=== PATIENT | female | born 1950 | race Caucasian/White ===

== ENCOUNTER 2022-08-14 15:38 | Outpatient (OUT) | payer MEDICARE, SELFPAY ==
[2022-08-14 16:38] LABS: Estimated Average Glucose 123 mg/dL; Glycohemoglobin A1C 5.9 % (4.5-6.2)
[2022-08-14 16:55] LABS: Alanine Aminotransferase 25 U/L (14-59); Albumin Globulin Ratio 0.8; Albumin Level 3.5 g/dL (3.4-5.0); Alkaline Phosphatase 101 U/L (46-116); Anion Gap 12.7; Aspartate Amino Transferase 21 U/L (15-37); Bilirubin Direct 0.1 mg/dL (0.0-0.2); Bilirubin Total 0.4 mg/dL (0.2-1.0); Carbon Dioxide 27.5 mmol/L (21.0-32.0); Chloride 104 mmol/L (98-107); Estimated GFR (African America >60 (>=60); Estimated GFR (Non-African Ame >60 (>=60); Globulin 4.3 g/dL; Potassium 4.2 mmol/L (3.5-5.1); Sodium 140 mmol/L (136-145); Thyroid Stimulating Hormone 2.837 uIU/mL (0.358-3.740); Total Protein 7.8 g/dL (6.4-8.2)
== END 2022-08-14 15:39 | disposition home or self-care (01) ==
LOC: LAB 15:43
DX: E03.9 Hypothyroidism, unspecified (principal)
CPT/HCPCS: 36415; 80051; 80076; 82565; 83036; 84443; 84520

== ENCOUNTER 2023-08-06 14:05 | Outpatient (OUT) | payer MEDICARE, SELFPAY ==
--- NOTE | 2023-08-06 14:06 | MM_ITS ---
Patient Name: CIARA MARTIN MR#: [id number] : 1950 Exam Date: 08/06/2023 Ordering Doctor: FRED AVELAR LINSEED OIL ORDER FILLER RADIOLOGY REPORT PROCEDURE: MM TOMOSYNTHESIS SCREENING BI COMPARISON: MG MAMM SCREEN 3D MINDY CAD, 07/11/2022. MG MAMM SCREEN MINDY W CAD, 06/05/2021. INDICATIONS: Screening Calculator Name NCI Breast Cancer Risk Assessment Tool 5 Year Breast Cancer Risk 2.30% Lifetime Breast Cancer Risk 5.70% Personal Breast Cancer No Personal Ovarian Cancer No Treatments None Family Cancers None LOCATION: [facility] BREAST COMPOSITION: The breasts are heterogeneously dense,which may obscure small masses. FINDINGS: DIAGNOSTIC CATEGORY 2--BENIGN FINDING. NO CHANGE FROM COMPARISON. Scattered benign-appearing nodules are present. Scattered benign-appearing calcifications are present. Scattered benign-appearing lymph nodes are present. RIGHT BREAST: No significant suspicious finding. LEFT BREAST: No significant suspicious finding. RECOMMENDATIONS: ROUTINE MAMMOGRAM AND CLINICAL EVALUATION IN 12 MONTHS. PLEASE NOTE: A NORMAL MAMMOGRAM DOES NOT EXCLUDE THE POSSIBILITY OF BREAST CANCER. A CLINICALLY SUSPICIOUS PALPABLE LUMP SHOULD BE BIOPSIED. Dictated by: Roldan Martines MD on 08/14/2023 at 16:11 Approved by: Roldan Martines MD on 08/14/2023 at 16:12
== END 2023-08-06 14:06 | disposition home or self-care (01) ==
LOC: MAMMO 14:05
PROVIDERS: PCP Nurse Practitioner Family; Visit Provider Nurse Practitioner Family
DX: Z12.31 Encounter for screening mammogram for malignant neoplasm of breast (principal)
CPT/HCPCS: 77063; 77067

== ENCOUNTER 2024-09-11 10:01 | Outpatient (OUT) | payer MEDICARE, SELFPAY ==
--- OUTSIDE RECORDS SUMMARY | 2018-09-09 09:30 | XMS_ITS | Continuity of Care Document ---
Author Organization [facility] Address [address] [place] [address] Phone Care Team Providers Care Product Handler Name Role Phone Constantin Lin III, MD Unavailable Unavailabl e Allergies, Adverse Reactions, Alerts Substance Reaction Status Criticality No Known Allergies Active No Inform ation Medications Medication Instructions Dosage Effective Dates (start - stop) Status Comments fluoxetine 20 mg capsule take 1 capsule by oral route every day in the morning 20 MG - Active omeprazole 20 mg capsule,delayed release take 1 capsule by oral route every day before a meal 20 MG - Active Tirosint 75 mcg capsule take 1 capsule by oral route every day 75 MCG - Active simvastatin 20 mg tablet take 1 tablet by oral route every day in the evening 20 MG - Active losartan 25 mg tablet take 1 tablet by o ral route every day 25 MG - Active metoprolol succinate ER 50 mg tablet,extended release 24 hr take 1 tablet by oral route every day 50 MG - Active Vitamin D3 2,000 unit tablet take 1 Tablet by Oral route every day 1 Tablet - Active Procedures Procedure Date [facility] Offic Outpt [facility] [place] [facility] Offic/outpt E&m [facility] OCT [facility] Offic Outpt E&[place]ab [place] [place] [facility] Ret[facility] Ophth Serv: Med Exam; Interm E 18 OCT Retina Offic/outpt E&m [facility]-pr 45 7 Advance Directives Directive Yes / No Effective Date File Name No Information Encounters Encounter Description Practice Location Reason(s) For Visit Diagnoses Date Provider Providers Copied on Encounter Offic Outpt E&m Estab Low-mod [facility], [address], [place], [place], [id number], [place] tel:[phone] [facility] Whitney blurry vision (chief complaint) Puckering of macula, bilateralOther vitreous opacities, bilateralAge-rela campos nuclear cataract, bilateralPrimary cyst of pars plana, left eye 9 Chorich III Constantin. [address], [place], [address], [place]. tel:[phone] Referring Provider: Constantin Elizabeth, [address], [place], [address]. tel:[phone] Offic/outpt E&m Estab Mod-hi [facility], [address], [place], [place], [id number], [place] tel:[phone] [facility] Whitney blurry vision (chief complaint) Puckering of macula, bilateralOther vitreous opacities, bilateralAge-rela campos nuclear cataract, bilateralPrimary cyst of pars plana, left eye 9 Chorich III Constantin. [address], [place], [address], [place]. [phone] Other Provider: Lizy Moore OD, [address], [place], [address]. tel:[phone] erring Provider: Constantin Elizabeth, [address], [place], [address]. tel:[phone] Offic Outpt E&m Estab Low-mod [facility], [address], [place], [place], [id number], [place] tel:[phone] [facility] Whitney blurry vision (chief complaint) Puckering of macula, bilateralMacular cyst, hole, or pseudohole, right eyeOther vitreous opacities, bilateralAge-rela campos nuclear cataract, bilateralPrimary cyst of pars plana, left eye 8 Chorich III Constantin. [address], [place], [address], [place]. tel:[phone] Referring Provider: Constantin Elizabeth, [address], [place], [address]. tel:[phone] [facility], [address], [place], [place], [id number], [place] tel:[phone] [facility] Whitney blurry vision (chief complaint) Puckering of macula, bilateralMacular cyst, hole, or pseudohole, right eyeOther vitreous opacities, bilateralAge-rela campos nuclear cataract, bilateralPrimary cyst of pars plana, left eye Feb-0 2 8 Chorich III Constantin. [address], [place], [address], [place]. [phone] Specialist : Ethan Joiner MD, [address], [place], [address]. tel:[phone] erring Provider: Constantin Morrisch LUCIA Elizabeth, [address], [place], [address]. tel:[phone] Offic/outpt E&m New Mod-hi 45 [facility], [address], [place], [place], [id number], tel:[phone] [facility] Whitney decreased vision (chief complaint) Puckering of macula, bilateralMacular cyst, hole, or pseudohole, right eyeAge-related nuclear cataract, bilateralOther vitreous opacities, bilateralPrimary cyst of pars plana, left eye 7 Chorich III Constantin. [address], [place], [address], [place]. tel:[phone] Family History Family Member Type Diagnosis Age At Onset Father Problem (finding) Heart disease Sister Problem (finding) Parkinson's disease Father Problem (finding) diabetes mellitus type 2 Sister Problem (finding) Thyroid cancer Sister Problem (finding) Heart disease Sister Problem (finding) hypertension Sister Problem (finding) Thyroid disorder Father Problem (finding) glaucoma Payers Payer name Insurance type Covered alliance party ID Authoriza tijanina(s) [employer] Medicare RAYMOND [id number] Social History Type Description Quantity Date Captured Comments Alcohol Use Details No Caffeine Use Details No Tobacco Use Status No Information Smoking Status Current some day smoker 019 Sex Female Chief Complaint And Reason For Visit From encounter dated '09/09/2018 13:30'. blurry vision (chief complaint). Description: Pt states she feels like her vision is doing a littlebetter. She is able to see more distance vision OU, especially when driving. Pt denies seeing any flashes or floaters OU. .The 67 years old female presents for evaluation of blurry vision in the right eye and left eye. The onset was chronic. It affects OU. The symptom is constant. It occurs all thetime. The condition is improving. The condition is described as no symptoms. Reason For Referral Reason For Referral No Information Plan Of Treatment Date Type Action Status Patient Education Vitamin D3 2,000 unit t ablet completed Patient Education fluoxetine 20 mg capsul e completed History Of Present Illness Encounter Date Complaint History Of Prese nt Illness blurry vision Pt states she fe els like her vision is doing a little better. She is able to see more distance vision OU, especially when driving. Pt denies seeing any flashes or floaters OU. .The 67 years old female presents for evaluation of blurry vision in the right eye and left eye. The onset was chronic. It affects OU. The symptom is constant. It occurs all the time. The condition is improving. The condition is described as no symptoms. blurry vision Patient here for 6 month follow up and OCT of both eyes. Patient states vision is still blurred in both eyes and has not changed since her last visit..The 67 years old female presents for evaluation of blurry vision in the right eye and left eye. The onset was gradual onset. It affects OU. The symptom is constant. It occurs all the time. The condition is mild. The condition is described as visually disruptive. blurry vision Follow up exam t narendra. She continues to have some blurry vision. She has some difficulty reading with her bifocals and she bought Tantaline readers that she does well with. She denies floaters and flashes..The 66 years old female presents for evaluation of blurry vision in the right eye and left eye. The onset was chronic. It affects OS > OD. The symptom is constant. It occurs all the time. The condition is moderate. The condition is described as blurring. blurry vision Pt complains she sometimes has a hard time making thing's out. Pt gave an example of if she sees what she thinks is a paper clip on the table turns out not to be a paper clip when she picks it up..The 66 years old female presents for 6-mos retinal evaluation. Pt complains of blurry vision in the left > right. ERM gradual onset. It affects peripheral vision. The symptom is constant. It occurs all the time. The condition is significant. The condition is described as visually disruptive. In addition, the condition is associated with blurred distance vision. The patient denies eye pain. decreased vision She states she went for a routine eye exam ans was told she possible has fluid in the back of her left eye. This was diagnosed from a picture that was taken. She was told nothing was seen on the examination..The 65 years old female presents for evaluation of decreased vision in the right eye and left eye. It started about 2 week(s) ago. The onset was discovered on exam. It affects VA not affected. The symptom is constant. It occurs all the time. The condition is stable. The condition is described as comfortable. The patient denies trauma. Functional Status Date Functional Assessmen t No Information Instructions Date Instruction Additional Infor nya - Return in 6 months with Constantin chopra MD for OCT OU 1st before exam Related to Epiretinal membrane, both eyesVitreous syneresis of both eyesNuclear cataract of both eyesPars plana primary cyst, left - oct ou done and re viewed today the ERM has not changed and the vision is about the same, Discussed diagnosis in detail with patient. No treatment is required at this time. Will continue to observe condition and or symptoms. Call if VA worsens. Patient instructed to call if condition gets worse. Related to Epiretinal membrane, both eyesVitreous syneresis of both eyesNuclear cataract of both eyesPars plana primary cyst, left - Return in 6 months with Constantin chopra MD for OCT OU 1st before exam Related to Epiretinal membrane, both eyesVitreous syneresis of both eyesNuclear cataract of both eyesPars plana primary cyst, left - Exam OU-both eyes are stable from a retinal standpoint. No treatment needed on ERM. Pt can see an Fur Storage Clerk for updated glasses if she wants, Dr Moore is close to where she lives. She does have cataracts in both eyes. Discussed diagnosis in detail with patient. Advised patient of condition. No treatment is required at this time. Will continue to observe condition and or symptoms. Call if VA worsens. Related to Epiretinal membrane, both eyesVitreous syneresis of both eyesNuclear cataract of both eyesPars plana primary cyst, left - Return in 6 months with Constantin chopra MD for Follow-Up , OCT OU 1st before exam Related to Epiretinal membrane, both eyesMacular pseudohole, right eyeVitreous syneresis of both eyesNuclear cataract of both eyesPars plana primary cyst, left - Performed and revi ewed OCT. The ERM in each eye remains stable at this time. The next step to improve the vision would likely be with cataract surgery first, primarily in the left eye. Discussed treatment options with patient. Will continue to observe condition and or symptoms. Discussed signs and symptoms of retinal detachment. Call if VA worsens. Related to Epiretinal membrane, both eyesMacular pseudohole, right eyeVitreous syneresis of both eyesNuclear cataract of both eyesPars plana primary cyst, left - Return in 6 months with Constantin chopra MD for Follow-Up , OCT OU 1st before exam Related to Epiretinal membrane, both eyesMacular pseudohole, right eyeVitreous syneresis of both eyesNuclear cataract of both eyesPars plana primary cyst, left - The diagnosis of m acular pucker was discussed, and the option for surgical treatment was reviewed. Patient elects continued observation at this time. He/She was instructed to call for any concerning vision changes such as blurred vision or increased distortion. Reviewed OCT scan and discussed results with patient. Patient instructed to call if condition gets worse. Call if VA worsens. Will continue to observe condition and or symptoms. Related to Epiretinal membrane, both eyesMacular pseudohole, right eyeVitreous syneresis of both eyesNuclear cataract of both eyesPars plana primary cyst, left - Return in 6 months with Constantin chopra MD for OCT OU 1st before exam Related to Epiretinal membrane, both eyesMacular pseudohole, right eyeNuclear cataract of both eyesVitreous syneresis of both eyesPars plana primary cyst, left - The diagnosis of m acular pucker w/pseudohole was discussed, and the option for surgical treatment was reviewed. Patient elects continued observation at this time. She was instructed to call for any concerning vision changes such as blurred vision or increased distortion. Advised patient of condition. Call if VA worsens. If patient is unhappy with vision then she will likely benefit from cataract surgery. After cataract surgery if she is still having issues then she may need ERM surgery. Related to Epiretinal membrane, both eyesMacular pseudohole, right eyeNuclear cataract of both eyesVitreous syneresis of both eyesPars plana primary cyst, left Assessments Type Assessment Date assessment Epiretinal membrane, both eyes J assessment Vitreous syneresis of both eyes assessment Nuclear cataract of both eyes Ju assessment Pars plana primary cyst, left Patient Care Teams Name Effective Dates (start - stop) Status Members No Information
--- OUTSIDE RECORDS SUMMARY | 2020-06-27 05:50 | XMS_ITS | Continuity of Care Document ---
Author Organization [facility] rtment Address [address] [place] [address] Phone Care Team Providers Care Service Supervisor Name Role Phone Phil Sung MD Unavailable Unavailable Procedures Procedure Date PFIZER SARSCOV2 VACCINE .3ML ADMN PFIZER SARSCOV2 .3ML 2ND DOSE PFIZER SARSCOV2 VACCINE .3ML ADMN PFIZER SARSCOV2 .3ML 1ST DOSE Advance Directives Directive Yes / No Effective Date File Name No Information Encounters Encounter Description Practice Location Reason(s) For Visit Diagnoses Date Provider Providers Copied on Encounter [facility] , [address] [place], [place], [id number], tel:[phone] [facility] Dept Immunization No Information 1 Pineda Villarreal. [address] [place], [place], [id number] , . tel:[phone] [facility] , [address], [place], [id number], tel:[phone] [facility] Dept Immunization No Information 1 Pineda Villarreal. [address], [place], [id number] , [place]. tel:[phone] Family History Family Member Type Diagnosis Age At Onset No Information Immunizations Vaccine Date Status Comments Pfizer Covid Vaccine administered Note: T PV70 ; Source: New Immunization Record Pfizer BioNTech administered Note: TPV70 ; Source: New Immunization Record Payers Payer name Insurance type Covered green party ID Authoriza tion(s) No Information Social History Type Description Quantity Date Captured Comments Sex Female Smoking Status No Information Chief Complaint And Reason For Visit No Information Reason For Referral Reason For Referral No Information History Of Present Illness Encounter Date Complaint History Of Prese nt Illness No Information Functional Status Date Functional Assessmen t No Information Instructions Date Instruction Additional Infor mation No Information Assessments Type Assessment Date No Information Patient Care Teams Name Effective Dates (start - stop) Status Members No Information
--- OUTSIDE RECORDS SUMMARY | 2024-03-05 08:01 | XMS_ITS ---
Author Organization [facility] [place] Address [address] [place] [address] Care Team Providers Care Web Press Operator Name Role Phone LILIYA VALENTIN CNP Primary Care Provider [phone] Liliya Valentin [phone] REASON FOR VISIT positive covid Encounters Encounter Location Date Provider Diagnosis [facility] [address] [place] [address] 03/05/2024 Liliya Valentin Plan Of Treatment No Information Progress Notes * Ania MARTIN IDOB:1950 (73 yo F)Acc No.[id number]:03/05/2024 Patient: Ania AZEVEDO I :1950 A ge:73 Y S ex:Female Address:[address] [place] [address], [phone] Subjective: * Chief Complaints: * P ositive covid * Medical History: * Surgical History: * Hospitalization/Major Diagno stic Procedure: * Medications: Objective: * Vitals: * Physical Examination: Assessment: Plan: * Treatment: * Procedure Codes: * true * Date: Generated for Printi ng/Faxing/eTransmitting on: 0 09/11/2024 10:04 AM EDT
--- OUTSIDE RECORDS SUMMARY | 2024-06-29 06:42 | XMS_ITS ---
Author Organization [facility] [place] Address [address] [place] [address] Care Team Providers Care Solar Maintenance Technician Name Role Phone LILIYA VALENTIN CNP Primary Care Provider Liliya Valentin [phone] REASON FOR VISIT refill Medications Medication SIG (Take, Route, Frequency, Duration) Notes Start Date End Date Status Losartan Potassium 50 MG 1 tablet Orally Once a day for 30 days 07/29/2023 Active Encounters Encounter Location Date Provider Diagnosis [facility] [address] [place] [address] 06/29/2024 Liliya Valentin Plan Of Treatment Medication Medication Name Sig Start Date Stop Date Notes Losartan Potassium 50 MG 1 tablet Orally Once a day for 30 days 07/29/2023 Progress Notes * Ania MARTIN IDOB:1950 (73 yo F)Acc No.[id number]:06/29/2024 Patient: Ania AZEVEDO I :1950 A ge:73 Y S ex:Female Address:[address] [place] [address], [address] * Refills Refill Losartan Potassium Tablet, 50 MG, Orally, 30 Tablet, 1 tablet, Once a day, 30 days, Refills=11 * true * Date: Generated for Printi ng/Faxing/eTransmitting on: 0 09/11/2024 10:04 AM EDT
--- OUTSIDE RECORDS SUMMARY | 2024-09-07 09:33 | XMS_ITS ---
Author Organization [facility] [place] Address [address] [place] [address] Care Team Providers Care Cut Out Stitcher Name Role Phone LILIYA VALENTIN CNP Primary Care Provider [phone] Liliya Valentin [phone] Encounters Encounter Location Date Provider Diagnosis [facility] [address] [place] [address] 09/07/2024 Liliya Valentin Arthritis M19.90 Assessments Encounter Date Diagnosis (ICD Code) Assessment Notes Treatment Notes Treatment Clinical Notes Section Notes 09/07/2024 Arthritis (ICD-10 - M19.90) Plan Of Treatment Pending Test Test Name Order Date HEMOGLOBIN A1C (GLYCO) 09/07/2024 IRON, TOTAL 09/07/2024 LIPID PANEL (CHOL/TRIG/HDL/LDL) 09/08/19 25 VITAMIN D, 25 LEVEL (TOTAL) 09/07/2024 Insulin Level 09/07/2024 THYROID PANEL (T4/TSH/FREE T3) 5 CMP (COMP MET HIRSCH) w/eGFR CKD-EPI 2024 CBC WITH DIFF 09/07/2024 Progress Notes * OCAURELIAAnia IDOB:1950 (73 yo F)Acc No.[id number]:09/07/2024 Patient: Ania AZEVEDO I :1950 A ge:73 Y S ex:Female Address:[address] [place] [address], [phone] Subjective: * Chief Complaints: * * Medical History: * Surgical History: * Hospitalization/Major Diagno stic Procedure: * Medications: Objective: * Vitals: * Physical Examination: Assessment: * Assessment: 1. A rthritis - M19.90 (Primary) Plan: * Treatment: * Procedure Codes: * true * Date: Generated for Dl key/James/Maricel on: 0 09/11/2024 10:04 AM EDT
--- OUTSIDE RECORDS SUMMARY | 2024-09-11 10:04 | XMS_ITS | Clinical Summary ---
Author Organization [facility] Healthcare Address [address] [place] [address] Care Team Providers Care Double Corner Cutter Name Role Phone Unallocated, Noms Provider Primary Care Provi machelle Allergies No known active allergies Medications simvastatin (Zocor) 20 MG tablet TAKE 1 TABLET BY MOUTH EVERY DAY IN THE EVENING AT 6PM Active omeprazole (PriLOSEC) [address] capsule Take 40 mg by mouth in the morning. Active levothyroxine (Synthroid, Levoxyl) 75 MCG tablet Take 1 tablet by mouth in the morning. 3 Active amLODIPine (Norvasc) 5 MG tablet Take 5 mg by mouth in the morning. 3 Active losartan (Cozaar) 50 MG tablet Take 50 mg by mouth in the morning. 3 Active ketorolac (Acular) 0.5 % ophthalmic solutionIndicat ions:Age-relate d nuclear cataract of both eyes Administer 1 drop into both eyes in the morning and 1 drop at noon and 1 drop in the evening and 1 drop before bedtime. 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 02/25/2023 Pseudophakia 10/10/2022 Epiretinal membrane (ERM) of both eyes 3 Resolved Problems Problem Noted Date Diagnosed Date Resolved Date Age-related nuclear cataract of right eye 10/16/2022 02/25/2023 Age-related nuclear cataract of both eyes 09/25/2022 02/25/2023 Family History Medical History Relation Name Comments Glaucoma Father Relation Name Status Comments Father Social History Tobacco Use Types Packs/Day Years Used Date Smoking Tobacco: Former Cigarettes Comments Unknown Sex and Gender Information Value Date Recorded Sex Assigned at Not on file Legal Sex Female 11:49 AM EDT Gender Identity Not on file Sexual Orientation Not on file Last Filed Vital Signs Vital Sign Reading Time Taken Comments Blood Pressure 125/65 09/25/2022 2:11 PM EDT Pulse 58 09/25/2022 2:11 PM EDT Temperature - - Respiratory Rate - - Oxygen Saturation - - Inhaled Oxygen Concentration - - Weight - - Height - - Body Mass Index - - Plan of Treatment Upcoming Encounters Date Type Department Care Team ([facility] st Contact Info) Description 10/16/2024 10:30 AM EDT Office Visit [facility] [address] [place] [address] All Evans DO [address] [place] [address] Health Maintenance Due Date Last Done Comments CT Colonography 1950 FIT-DNA 1950 FIT 1950 FOBT 1950 Sigmoidoscopy 1950 Mammogram 07/12/2023 07/11/2022, 06/19, 06/05/2021, Additional history exists Medicare Annual Wellness (AWV) 08/10/2023 0 08/09/2022, 07/27/2021, 03/06/2012, Additional history exists Influenza Vaccine (#1) 2024 , 12/08/2021, 12/03/2020, Additional history exists Colonoscopy 05/25/2030 05/25/2020, 04/0 08/2020, 09/18/2016 Colorectal Cancer Screening 05/25/2030 Pneumococcal Vaccine: 65+ Years Completed 12/27/2015, 01/21/2015, 04/27/2008 Insurance [employer] MEDICARE ADVANTAGE Care Teams Double Corner Cutter Relationship Specialty Start Date End Date Unallocated, Noms MD Mercedes [address] [place] [address] PCP - General 10/18/22
--- OUTSIDE RECORDS SUMMARY | 2024-09-11 10:04 | XMS_ITS | Clinical Summary ---
Author Organization [facility] Address [address] [place] [id number] Care Team Providers Care Agronomy Advisor Name Role Phone Unavailable Primary Care Provider Unavailabl e Allergies No known active allergies Medications BIOTIN ORAL Take by mouth once daily. Active cholecalciferol (VITAMIN D3) 1,000 unit tab tablet Take 2,000 Units by mouth once daily. Active FLUoxetine (PROZAC) 20 mg capsule Take 1 capsule by mouth once daily. 2 Active gabapentin (NEURONTIN) 100 mg capsule 1 capsule once daily. 2 Active levothyroxine (SYNTHROID) 75 mcg tablet Take 75 mcg by mouth once daily. 2 Active losartan (COZAAR) 25 mg tablet Take 1 tablet by mouth once daily. 2 Active nystatin (MYCOSTATIN) powder Apply 1 application to affected area as needed. 1 Active omeprazole (PRILOSEC) 40 mg capsule Take 1 capsule by mouth once daily. 2 Active simvastatin (ZOCOR) 20 mg tablet Take 20 mg by mouth once daily. 2 Active Active Problems No known active problems Family History Medical History Relation Comments Diabetes Father Glaucoma Father Diabetes Maternal Grandmother Diabetes Paternal Grandmother Heart Sister 1 pacemaker Sister 1 Heart Sister 2 Relation Status Comments Father Maternal Grandmother Paternal Grandmother Sister 1 Sister 2 Social History Tobacco Use Types Packs/Day Years Used Date Smoking Tobacco: Never Smokeless Tobacco: Never Comments:quit 10 years ago Area Deprivation Index Answer Date Devonte rded National Score (1-100), lower number is lower ri sk 86 08/31/2021 State Score (1-10), lower number is lower risk N ot on file 08/31/2021 Data from: https://www.neighborhoodatlas.medicine.[facility]/. Last address used for calculation [address] [facility] 08/31/2021 Comments Unknown Sex and Gender Information Value Date Recorded Sex Assigned at Not on file Legal Sex Female 2:46 PM EDT Gender Identity Not on file Sexual Orientation Not on file Plan of Treatment Health Maintenance Due Date Last Done Comments Anxiety Screening 10/29/1967 Depression Screening 10/29/1967 Hepatitis C Screening 10/29/1967 CT Colonography 1994 Cologuard (FIT-DNA) 1994 Colonoscopy 1994 Colorectal Cancer Screening 1994 Fecal Occult Blood 1994 Sigmoidoscopy 1994 Bone Density Screening 2014 Mammogram Screening 06/05/2022 06/05/2021 Advance Directive Discussion 02/19/2024 Diabetes Screening 07/27/2024 07/27/2021, 0 07/27/2021, 07/27/2021, Additional history exists Influenza Vaccine (#1) 2024 , 11/27/2018, 12/18/2017, Additional history exists RSV Vaccine (1 - 1-dose 75+ series) 2024 Lipid Screening 06/14/2025 06/14/2020, 03/19/2019 DTaP,Tdap,Td Vaccine (3 - Td or Tdap) 03/19/2029 03/19/2019, 04/08/2007 Pneumococcal Vaccine: 50+ Completed 2015, 01/21/2015, 04/27/2008 Shingrix Vaccine Completed 06/06/2019, 03/19/2019 Insurance [employer] MEDICARE
--- OUTSIDE RECORDS SUMMARY | 2024-09-11 10:04 | XMS_ITS | Clinical Summary ---
Author Organization [facility] Address [address] [place] [address] Care Team Providers Care Technical Research Scientist Name Role Phone Crystal Santamaria MD Primary Care Provider [phone] Allergies No known active allergies Medications ACCU-CHEK MULTICLIX LANCETS XX MISC by Does not apply route. Use as directed daily 100 6 04/13/19 09 Active Cholecalciferol (VITAMIN D) 1000 UNITS Tab Take 2 tablets by mouth daily. Active albuterol (PROAIR HFA) 108 (90 BASE) MCG/ACT Aero SolnIndications:Up per respiratory tract infection, unspecified type take 1 puff by inhalation every 6 hours as needed for Wheezing. 1 Inhaler 07/25/19 16 Active glucose blood test strips (Accu-Chek Homa) Strip stripIndications:P rediabetes Check once daily 50 strip 5 06/15/19 21 Active Multiple Vitamins-Minerals (Hair Skin Nails) capsule Take by mouth. Activ e nystatin 348644 UNIT/GM Powder powderIndications: Veronica infection of flexural skin Apply 1 Application topically 3 times daily. 45 g 09/01/19 21 Active Additional Information Patient not taking.Reported on 05/16/2022 FLUoxetine 20 MG capsule Take 1 capsule by mouth daily. 90 capsule 3 08/10/19 23 Active Losartan 50 MG tablet take 1 tablet by mouth every day 90 tablet 4 04/19/19 24 Active omeprazole [address] capsule take 1 capsule by mouth every day 90 capsule 4 08/02/19 24 Active simvastatin 20 MG tablet TAKE 1 TABLET BY MOUTH EVERY DAY IN THE EVENING AT 6PM 90 tablet 4 08/12/19 24 Active Levothyroxine 75 MCG tabletIndications: Acquired hypothyroidism take 1 tablet by mouth every day 90 tablet 4 10/14/19 24 Active amLODIPine 5 MG tablet TAKE 1 TABLET BY MOUTH EVERY DAY 90 tablet 3 03/27/19 25 Active Active Problems Problem Noted Date Diagnosed Date PLMD (periodic limb movement disorder) Overview (12/23/2020): See sleep - rec trial of gabapentin Lung nodules 07/26/2020 Overview (07/26/2020): 07/26/2020 Lung RADS 2; Ms. Martin needs a follow up CT scan in one year due to findings of a few punctate nodules and her smoking history that requires yearly lung cancer screening CTs. Gastric polyps 07/26/2020 Overview (07/26/2020): 07/26/2020 Multiple diminutive sessile fundic gland polyps were found in the gastric fundus and in the gastric body. Dysphagia 06/27/2020 Overview (06/27/2020): Added automatically from request for surgery [id number] Serrated adenoma of colon 05/19/2020 Overview (07/26/2020): 09/18/2016 Colonoscopy - Hepatic flexure: Tubular adenoma (2 pieces), Sessile serrated adenoma. - Transverse: Tubular adenoma (2 pieces), Sessile serrated adenoma, Hyperplastic polyp. - Descending: Hyperplastic, polyp. 2020: One 11 mm polyp in the cecum, removed with a cold snare. Resected and retrieved. - One 3 mm polyp at the hepatic flexure, removed with a cold snare. Complete resection. Polyp tissue not retrieved. - One 4 mm polyp in the transverse colon, removed with a cold snare. Resected and retrieved. - One 2 mm polyp in the rectum, removed with a jumbo cold forceps. Resected and retrieved. - The entire examined colon is normal. Biopsied. Recommendation: - Await pathology results. - Repeat colonoscopy in 3 years for surveillance DDD (degenerative disc disease), cervical 2016 Obesity (BMI 30-39.9) 06/26/2016 Overview (05/19/2020): There is no height or weight on file to calculate BMI. Wt Readings from Last 3 Encounters: 03/12/19 90.9 kg (200 lb 6.4 oz) 11/09/16 89.8 kg (198 lb) 06/26/16 90.4 kg (199 lb 6.4 oz) Assess: stable Plan: support encourage Colon cancer screening 06/26/2016 Overview (06/26/2016): Added automatically from request for surgery [id number] Special screening for malign ant neoplasm of the respiratory organs 09/30/2014 Prediabetes 11/20/2013 Overview (05/19/2020): Lab Results Component Value Date HGBA1C 5.6 03/19/2019 Max 6.2% 07/04/2010 Taking no Rx Assess: controlled/resolved, but generating anxiety Plan: support/reassure Sensorineural hearing loss, unilateral 1 MARÍA (obstructive sleep apnea) 05/28/2008 Overview (01/03/2010): 2008 PSG - RDI 5.8, O2 desat orlin 90%; CPAP 9 cm started - however [facility] does not use this Hypersomnia, unspecified 04/26/2008 Snoring 04/26/2008 Essential hypertension, benign HLD (hyperlipidemia) Overview (01/17/2010): LE arterial doppler normal 12/2009 Reflux esophagitis Overview (11/20/2013): Continues to have regurgitation nocturnally Depressive disorder, not elsewhere classified Overview (01/03/2010): chronic life long - in the mid 1989's saw Dr. Anibal Fox one time, has tried multiple antidepressants in the past did the best on Prozac 40 mg (with only modest results: prozac, celexa, effexor, lexapro, cymbalta) - but never combination or augmented therapy - was referred to pscyhiatry - the was tried on Wellbutrin and then Nortriptyline Renal cyst Health maintenance examination Overview (01/03/2010): had CRC 2006 Chronic bronchitis Overview (01/03/2010): no previous pft Atherosclerosis Overview (01/21/2015): seen on chest CT 09/2014 Emphysema lung Overview (01/21/2015): seen on chest CT 09/2014 Resolved Problems Problem Noted Date Diagnosed Date Resolved Date Tobacco use disorder 022 Impaired fasting glucose 04/2013 Encounters Date Type Department Care Team Description 06/25/2024 Refill Primary Care - General Internal Medicine Outpatient Care [address] [place] [address] Crystal Santamaria MD from Last 3 Months Immunizations Immunization Administration Dates Next Due Influenza Vaccine 03/06/2012,01/03/2010 Influenza Vaccine 0.5ml 12/02/2007 Influenza Vaccine, High-dose 11/27/2018, 12/18/2017,12/27/2015,2014 Influenza Vaccine, Trivalent 01/21/2015,11/21/19 14 Influenza, High-dose Seasona l, Quadrivalent, Preservative Free 12/03/2020,10/12/2019 Pneumococcal Conjugate 13-va lent vaccine 01/21/2015 Pneumococcal Polysac 23-Robyn nt Vaccine 12/27/2015,04/27/2008 Tdap Vaccine 03/19/2019,04/08/2007 Zoster Vaccine, Recomb 06/06/2019,03/19/2019 Family History Medical History Relation Name Comments Coronary Artery Disease Father Diabetes Father Other - Specify Father PVD, diabete s, CAD, Tobacco Mental Illness Maternal Grandfather decea sed of suicide Diabetes Maternal Grandmother Mental Illness Mother history of re peated hospitalizations for depression Other - Specify Mother brain tumor/ benign Diabetes Paternal Grandmother Mental Illness Paternal Grandmother depre ssion Arrhythmia Sister 1 kiki Atrial fibrilla tion Mental Illness Sister 1 kiki depression, a nd colitis Other - Specify Sister 1 kiki depression, colitis, fibromyalgia, low iron Coronary Artery Disease Sister 2 byron CABG and pace maker Other - Specify Sister 2 byron kidney stone s Mental Illness Sister 3 ashlie depressed Other - Specify Sister 3 ashlie rheumatologi c disease Cancer- Other Sister 4 hugh thyroid Mental Illness Sister 4 hugh depression, w ith hospitalization Breast Cancer Neg Hx Colorectal Cancer Neg Hx GI Disease Neg Hx Ovarian Cancer Neg Hx Relation Name Status Comments Father Maternal Grandfather Maternal Grandmother Mother Paternal Grandmother Sister 1 kiki Alive Sister 2 byron Sister 3 ashlie Alive Sister 4 hugh Alive Social History Tobacco Use Types Packs/Day Years Used Date Smoking Tobacco: Former Cigarettes 2 45.3 0 1965 - 02/24/2011 Smokeless Tobacco: Never Comments:for over 30 years Alcohol Use Standard Drinks/Week Comments Yes 3 (1 standard drink = 0.6 oz pur e alcohol) occasionally Depression Answer Date Recorded PHQ-9 Total Score (Interpret ation of Total Score 1-4 = Minimal depression; 5-9 = Mild depression; 10-14 = Moderate depression; 15-19 = Moderately severe depression) 2 08/09/2022 Comments No Sex and Gender Information Value Date Recorded Sex Assigned at Not on file Legal Sex Female 11:38 AM EST Gender Identity Female Sexual Orientation Not on file Last Filed Vital Signs Vital Sign Reading Time Taken Comments Blood Pressure 126/70 08/09/2022 3:04 PM EDT Pulse 71 08/09/2022 3:04 PM EDT Temperature 36.8 C (98.2 F) 07/26/2020 9:56 AM EDT Respiratory Rate 14 12/22/2020 2:59 PM EDT Oxygen Saturation 98% 08/09/2022 3:04 PM EDT Inhaled Oxygen Concentration - - Weight 93.4 kg (206 lb) 08/09/2022 3:04 PM EDT Height 157.5 cm (5' 2 ) 08/09/2022 3:04 PM EDT Body Mass Index 37.68 08/09/2022 3:04 PM EDT Plan of Treatment Health Maintenance Due Date Last Done Comments RSV VACCINE (1 - Risk 60-74 years 1-dose series) 2009 TSH 07/27/2022 07/27/2021, 05/20, 03/19/2019, Additional history exists COLONOSCOPY 05/26/2023 05/25/2020, 040 08/2020, 09/18/2016, Additional history exists MAMMOGRAM SCREENING DISCUSSION 07/12/2023 07/11/2022, 06/05/2021, 05/26/2020, Additional history exists PREVENTATIVE HEALTH VISIT 08/10/20232022, 07/27/2021, 07/27/2021, Additional history exists COVID-19 VACCINE ( season) 2023 08/14/2022, 10/10/2021, 01/27/2021, Additional history exists INFLUENZA VACCINE (#1) 2024 , 12/03/2020, 10/12/2019, Additional history exists LIPID SCREENING 06/14/2025 06/14/2020, 02/20, 06/26/2016, Additional history exists TETANUS 03/19/2029 03/19/2019, 04/08/2007 HEPATITIS C VIRUS SCREENING Completed 12/27/2015 PNEUMOCOCCAL VACCINE SERIES Completed 12/27/2015, 01/21/2015, 04/27/2008 CERVICAL CANCER SCREENING DISCUSSION Discontinued 03/12/2019, 01/21/2015, 03/06/2012 DEXA SCAN DISCUSSION Discontinued 03/18/2019, 12/16/2014, 12/16/2014, Additional history exists DEXA SCAN Discontinued 03/18/2019, 11/19, 12/16/2014, Additional history exists TDAP (ADULT) Completed 03/19/2019, 04/08/2007 ZOSTER (SHINGLES) VACCINE Completed 06/06/2019, LUNG CANCER SCREENING Discontinued 07/11/2022 , 07/04/2020, 10/04/2014 HEP B VACCINE Aged Out No longer elig ible based on patient's age to complete this topic Goals Goal Patient Goal Type Associated Problems Recent Progress Patient-Stated? Author Physical Therapy Physical Therapy Phuc Queen, PT Note: 12/20/2015 Improve NDI Score to JOSE F to indicate functional improvements per patient self-assessment. 01/17/2016 Achieved: reduced disability score from 26 to 13%. 12/20/2015 Improve cervical rotation bilaterally by 10 degrees, for improved ability to drive with head turns. 01/17/2016 Not achieved, see ROM table. 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 01/17/2016 Achieved: 02/2712/20/[address] with head turns with decreased pain rating of 2-3/10 (0=no pain, 10=excruciating). 01/17/2016 Achieved: 3 Procedures Procedure Name Priority Date/Time Associated Diagnosis Comments MAMMO SCREENING WITH NAILA BILATERAL Routine 07/11/2022 3:59 PM EDT Visit for screening mammogram CT LUNG CANCER SCREENING Routine 07/11/2022 3:22 PM EDT Screening for lung cancer Personal history of tobacco use, presenting hazards to health TSH Routine 07/27/2021 3:36 PM EDT Hair loss LIPID PANEL W CALCULATED LDL Routine 06/14/2020 11:09 AM EDT Hyperlipidemia, unspecified hyperlipidemia type COLONOSCOPY Routine 05/25/2020 12:21 PM EDT BONE DENSITY AXIAL (HIP, PELVIS, SPINE) Routine 03/18/2019 2:43 PM EST Abnormal findings on diagnostic imaging of other parts of musculoskeletal system Osteopenia, unspecified location CYTOLOGY-CLAY PRESS OPERATOR, LIQUID BASED Routine 03/12/2019 4:16 PM EST Screening for cervical cancer HEPATITIS C ANTIBODY Routine 12/27/2015 12:02 PM EST Need for hepatitis C screening test from Last 3 Months or Most Recently Relevant to Health Maintenance Results * MAMMO SCREENING WITH NAILA BILATERAL (07/11/2022 3:59 PM EDT) Anatomical Region Laterality Modality breast Bilateral Mammography 07/11/2022 4:31 PM EDT Impressions 07/11/2022 4:33 PM EDT IMPRESSION: No mammographic evidence of malignancy. BI-RADS: 1: Negative Recommendation: Routine mammography. Recommendation Laterality: Bilateral The current National Comprehensive Cancer Network and [employer] [place] [employer] guidelines recommend women undergo a screening mammogram every year over the age of 40 and continue mammographic screening as long as they are in good health. Screening mammography under age 40 may occur for women who are at increased risk for breast cancer. Narrative 07/11/2022 4:33 PM EDT EXAM: MAMMO SCREENING WITH NAILA BILATERAL, 07/11/2022 15:59 PM CLINICAL INDICATIONS: Screening COMPARISON: MAMMO SCREENING WITH NAILA BILATERAL June 05, 2021, MAMMO SCREENING WITH NAILA BILATERAL May 26, 2020, MAMMO SCREENING WITH NAILA BILATERAL March 18, 2019, MAMMO SPECIAL VIEWS - LEFT January 18, 2016, MAMMO SCREENING BILATERAL January 06, 2016 TECHNIQUE: 2-D MLO and CC views were obtained of the bilateral breasts. 3-D MLO and CC digital tomosynthesis images were also acquired. Computer aided detection was utilized. FINDINGS: The breasts have scattered areas of fibroglandular density. Bilateral benign appearing calcifications are noted. There are no suspicious masses, calcifications, or architectural distortions. Procedure Note Ajay Kirkland MD - 07/11/2022 EXAM: MAMMO SCREENING WITH NAILA BILATERAL, 07/11/2022 15:59 PM CLINICAL INDICATIONS: Screening COMPARISON: MAMMO SCREENING WITH NAILA BILATERAL June 05, 2021, MAMMO SCREENING WITH NAILA BILATERAL May 26, 2020, MAMMO SCREENING WITH NAILA BILATERAL March 18, 2019, MAMMO SPECIAL VIEWS - LEFT December, MAMMO SCREENING BILATERAL January 06, 2016 TECHNIQUE: 2-D MLO and CC views were obtained of the bilateral breasts. 3-D MLO andCC digital tomosynthesis images were also acquired. Computer aided detectionwas utilized. FINDINGS: The breasts have scattered areas of fibroglandular density. Bilateralbenign appearing calcifications are noted. There are no suspicious masses, calcifications, or architecturaldistortions. IMPRESSION IMPRESSION: No mammographic evidence of malignancy. BI-RADS: 1: Negative Recommendation: Routine mammography. Recommendation Laterality: Bilateral The current National Comprehensive Cancer Network and [employer] [place] [employer] guidelines recommend women undergo a screening mammogram everyyear over the age of 40 and continue mammographic screening as long as they arein good health. Screening mammography under age 40 may occur for women whoare at increased risk for breast cancer. us Self-Requested Mammography-[facility] BREAST IMAGING Final Result * CT LUNG CANCER SCREENING (07/11/2022 3:22 PM EDT) Anatomical Region Laterality Modality Chest Computed Tomogra phy 07/16/2022 10:1 6 AM EDT Impressions 07/16/2022 10:25 AM EDT IMPRESSION: Pulmonary nodule screening result: Lung-RADS 2: Benign Appearance or Behavior (Nodules with a very low likelihood of becoming a clinically active cancer due to size or lack of growth). Recommendation (based on the most suspicious nodule): Continue annual screening with LDCT in 12 months Narrative 07/16/2022 10:25 AM EDT LOW-DOSE CT LUNG SCREENING EXAM: CT LUNG CANCER SCREENING, 07/11/2022 15:22 PM CLINICAL INDICATIONS: 71 years Female Lung cancer screening, >= 20 pk-yr smoking history (Age >= 50y); RELEVANT CLINICAL HISTORY: Z12.2:Screening for lung cancer Z87.891:Personal history of tobacco use, presenting hazards to health COMPARISON: July 04, 2020 TECHNIQUE: Low-dose noncontrast screening chest CT was performed as recommended by the [place] Preventive Services Task Force. FINDINGS: Lungs: - Parenchymal Changes: Multiple bilateral predominant centrilobular emphysema. Remote granulomatous disease. No mass or consolidation. No interstitial disease. - NonCalcified Nodules: New faint sub-6 mm right upper lobe groundglass nodular density (series 4, image 86). Stable few scattered pulmonary micronodules, for example right upper lobe (series 4, image 191). Pleural Spaces: Normal, without effusion, thickening, or calcification. Trachea and Airways: Patent and unremarkable Mediastinum and Rylie: No mass or lymphadenopathy appreciated. Calcified granulomatous lymph nodes. Unremarkable esophagus. Supraclavicular and Axillae: No lymphadenopathy. Unremarkable thyroid gland. Heart and Vessels: Normal heart size. No pericardial effusion. Aorta and central pulmonary arteries of normal caliber. Mild coronary calcifications. Upper Abdomen: Cholecystectomy. Left renal cyst. Bones and soft tissues: No abnormalities. Procedure Note [facility] - 07/16/2022 LOW-DOSE CT LUNG SCREENING EXAM: CT LUNG CANCER SCREENING, 07/11/2022 15:22 PM CLINICAL INDICATIONS: 71 years Female Lung cancer screening, >= 20 pk-yr smoking history (Age >= 50y); RELEVANT CLINICAL HISTORY: Z12.2:Screening for lung cancer Z87.891:Personal history of tobacco use, presenting hazards to health COMPARISON: July 04, 2020 TECHNIQUE: Low-dose noncontrast screening chest CT was performed as recommended by the [place] Preventive Services Task Force. FINDINGS: Lungs: - Parenchymal Changes: Multiple bilateral predominant centrilobularemphysema. Remote granulomatous disease. No mass or consolidation. No interstitial disease. - NonCalcified Nodules: New faint sub-6 mm right upper lobe groundglass nodular density (series 4, image 86). Stable few scattered pulmonary micronodules, for example right upper lobe (series 4, image 191). Pleural Spaces: Normal, without effusion, thickening, or calcification. Trachea and Airways: Patent and unremarkable Mediastinum and Rylie: No mass or lymphadenopathy appreciated. Calcified granulomatous lymph nodes. Unremarkable esophagus. Supraclavicular and Axillae: No lymphadenopathy. Unremarkable thyroidgland. Heart and Vessels: Normal heart size. No pericardial effusion. Aorta and central pulmonary arteries of normal caliber. Mild coronarycalcifications. Upper Abdomen: Cholecystectomy. Left renal cyst. Bones and soft tissues: No abnormalities. IMPRESSION IMPRESSION: Pulmonary nodule screening result: Lung-RADS 2: Benign Appearance orBehavior (Nodules with a very low likelihood of becoming a clinically active cancerdue to size or lack of growth). Recommendation (based on the most suspicious nodule): Continue annual screening with LDCT in 12 months Lolita Bernal OPEN HEARTH WORKER-AUTOMOTIVE ARTIST CT ORDERABLES Final Result * TSH (07/27/2021 3:36 PM EDT) TSH 1.964 0.550 - 4.780 uIU/mL 07/27/2021 5:40 PM EDT [facility] Blood Venipuncture / Unknown 07/27/2021 3:36 PM EDT 07/27/2021 4:10 PM EDT us Crystal Santamaria MD ENDOCRINOLOGY Final Result [facility] [address] [address] * LIPID PANEL W CALCULATED LDL (06/14/2020 11:09 AM EDT) Cholesterol 162 <200 mg/dL 06/14/2020 1:00 PM EDT [facility] Comment: [<200 mg/dL: Desirable] [200-239 mg/dL: Borderline High] [>239 mg/dL: High] Triglycerides 118 <150 mg/dL 06/14/2020 1:00 PM EDT [facility] Comment: [<150 mg/dL: Desirable] [150-199 mg/dL: Borderline] [200-499 mg/dL: High] [>500 mg/dL: Very High] HDL Cholesterol 61 >=40 mg/dL 1:00 PM EDT [facility] Comment: [<40 mg/dL: Low (High Risk)] [>59 mg/dL: High (Low Risk)] Calculated LDL Cholesterol 77 0 - 99 mg/dL 06/14/2020 1:00 PM EDT [facility] Comment: [<100 mg/dL: Optimal] [100-129 mg/dL: Near Optimal] [130-159 mg/dL: Borderline High] [160-189 mg/dL: High] [>189 mg/dL: Very High] Total Cholesterol/HDL Ratio 2.7 <4.5 06/14/2020 1:00 PM EDT [facility] Non HDL Cholesterol 101 <130 mg/dL 06/14/2020 1:00 PM EDT [facility] Blood Venipuncture / Unknown 06/14/2020 11:09 AM EDT 06/14/2020 11:11 AM EDT us Crystal Santamaria MD CHEMISTRY ORDERABLES Final R esult [facility] [address] [address] * COLONOSCOPY (05/25/2020 12:21 PM EDT) Anatomical Region Laterality Modality Other 05/25/2020 12:2 1 PM EDT Narrative 05/25/2020 1:08 PM EDT [facility] Patient Name: Ciara Martin Procedure Date: 05/25/2020 12:21 PM Date of : 1950 Admit Type: Outpatient Age: 69 Room: Procedure Room 1 Gender: Female Note Status: Finalized Attending MD: Wilfredo Yang MD Procedure: Colonoscopy Indications: Surveillance: Personal history of adenomatous polyps on last colonoscopy > 3 years ago, Last colonoscopy: 2017, No family history of colorectal cancer Providers: Wilfredo Yang MD (Doctor), Justine Baldwin RN Patient Profile: This is a 69 year old female. Referring MD: Crystal Santamaria MD (Referring MD) Medicines: Midazolam 2 mg IV, Fentanyl 50 micrograms IV Complications: No immediate complications. Requesting Provider: Procedure: Pre-Anesthesia Assessment: - Prior to the procedure, a History and Physical was performed, and patient medications and allergies were reviewed. The risks and benefits of the procedure and the sedation options and risks were discussed with the patient. All questions were answered and informed consent was obtained. Patient identification and proposed procedure were verified by the physician and the nurse in the procedure room at 12:37 PM. Airway Examination: normal oropharyngeal airway and neck mobility. Respiratory Examination: clear to auscultation. CV Examination: normal and Abdominal Examination: +BS, soft, non-tender, no masses. Prophylactic Antibiotics: The patient does not require prophylactic antibiotics. Prior Anticoagulants: The patient has taken no anticoagulant or antiplatelet agents. ASA Grade Assessment: II - A patient with mild systemic disease. After reviewing the risks and benefits, the patient was deemed in satisfactory condition to undergo the procedure. The anesthesia plan was to use moderate sedation / analgesia (conscious sedation). Immediately prior to administration of medications, the patient was re-assessed for adequacy to receive sedatives. The physical status of the patient was re-assessed after the procedure. After I obtained informed consent and an audible timeout was performed, the scope was passed under direct vision. Throughout the procedure, the patient's blood pressure, pulse, and oxygen saturations were monitored continuously. The Colonoscope ([id number]) was introduced through the anus and advanced to the terminal ileum, with identification of the appendiceal orifice and IC valve. The colonoscopy was performed without difficulty. The patient tolerated the procedure well. The quality of the bowel preparation was evaluated using the BBPS ([place] Bowel Preparation Scale) with scores of: Right Colon = 3, Transverse Colon = 3 and Left Colon = 3 (entire mucosa seen well with no residual staining, small fragments of stool or opaque liquid). The total BBPS score equals 9. The terminal ileum, ileocecal valve, appendiceal orifice, and rectum were photographed. Findings: The perianal and digital rectal examinations were normal. An 11 mm polyp was found in the cecum. The polyp was sessile. The polyp was removed with a cold snare. Resection and retrieval were complete. Estimated blood loss: none. A 3 mm polyp was found in the hepatic flexure. The polyp was sessile. The polyp was removed with a cold snare. Resection was complete, but the polyp tissue was not retrieved. Estimated blood loss: none. A 4 mm polyp was found in the transverse colon. The polyp was sessile. The polyp was removed with a cold snare. Resection and retrieval were complete. Estimated blood loss: none. A 2 mm polyp was found in the rectum. The polyp was sessile. The polyp was removed with a jumbo cold forceps. Resection and retrieval were complete. Estimated blood loss: none. The colon (entire examined portion) appeared normal. Biopsies were taken with a cold forceps for histology. Estimated blood loss: none. No additional abnormalities were found on retroflexion. Impression: - One 11 mm polyp in the cecum, removed with a cold snare. Resected and retrieved. - One 3 mm polyp at the hepatic flexure, removed with a cold snare. Complete resection. Polyp tissue not retrieved. - One 4 mm polyp in the transverse colon, removed with a cold snare. Resected and retrieved. - One 2 mm polyp in the rectum, removed with a jumbo cold forceps. Resected and retrieved. - The entire examined colon is normal. Biopsied. Recommendation: - Await pathology results. - Repeat colonoscopy in 3 years for surveillance. - Resume previous diet. - Continue present medications. - Patient has a contact number available for emergencies. The signs and symptoms of potential delayed complications were discussed with the patient. Return to normal activities tomorrow. Written discharge instructions were provided to the patient. Procedure Code(s): --- Professional --- 75890, Colonoscopy, flexible; with removal of tumor(s), polyp(s), or other lesion(s) by snare technique 33579, 59, Colonoscopy, flexible; with biopsy, single or multiple Diagnosis Code(s): --- Professional --- Z12.11, Encounter for screening for malignant neoplasm of colon Z86.010, Personal history of colonic polyps K63.5, Polyp of colon K62.1, Rectal polyp CPT copyright 2020 [employer] [place] [employer]. All rights reserved. The codes documented in this report are preliminary and upon focused factory manager review may be revised to meet current compliance requirements. MD Wilfredo Zheng MD 05/25/2020 1:08:41 PM This report has been signed electronically. Number of Addenda: 0 Note Initiated On: 05/25/2020 12:21 PM Scope Withdrawal Time: 0 hours 18 minutes 37 seconds Crystal Santamaria MD GI/BRONCH PROCEDURE ORDERABL ES Final Result * BONE DENSITY AXIAL (HIP, PELVIS, SPINE) (03/18/2019 2:43 PM EST) Anatomical Region Laterality Modality hip, Pelvis, L-spine Bone Densit y 03/18/2019 2:50 PM EST Impressions 03/18/2019 2:51 PM EST IMPRESSION: Based on BMD and WHO criteria diagnosis is consistent with osteopenia. * The T-score reflects standard deviations above (+) or below (-) a 20-40 year-old, , female, [place] population. At this age, it is assumed that peak bone mass is reached. * The Z-score reflects standard deviations above (+) or below (-) an age, sex, ethnicity, and weight-matched population. * Osteoporosis is defined as a skeletal disorder characterized by compromised bone strength predisposing to an increased risk of fracture. Bone strength reflects the integration of two main features: BMD and bone quality (ANAIS 2001;285:785-795). Any history of fragility fracture is suggestive of osteoporosis, regardless of the BMD data acquired in this study. * Secondary causes of bone loss should be evaluated if clinically indicated as the etiology of low BMD cannot be determined by BMD measurement alone. The physician who interpreted this study is a Certified Clinical It Network Engineer by the International Society of Clinical Densitometry Juvenal Pollock MD, CCD. Narrative 03/18/2019 2:51 PM EST EXAM: BONE DENSITY AXIAL (HIP, PELVIS, SPINE) 03/18/2019 14:43 PM TECHNIQUE: DXA scanning using a Cobase Advance bone densitometer at the [facility] was performed on 03/18/2019 14:43 PM CLINICAL INDICATIONS: screen for osteoporosis RELEVANT CLINICAL HISTORY: R93.7:Abnormal findings on diagnostic imaging of other parts of musculoskeletal system M85.80:Osteopenia, unspecified location COMPARISON: There is a comparison study from December 07, 1914 performed on [employer] A. Due to differences in technology, a valid comparison cannot be made and thus the current study will serve as a new baseline. FINDINGS: 1. Quality of the examination at the L1-2 lumbar spine: Adequate. 2. Quality of the examination at the dual hip: Adequate. BONE MINERAL DENSITY (BMD) CURRENT BONE MINERAL DENSITY (BMD) Region: g/cm2 T-Score Z-Score Lumbar 1-2 Spine: 1.130 -0.3 Left Femoral Neck: 0.846 -1.4 Left Total Hip: 0.932 -0.6 Right Femoral Neck: 0.815 -1.6 Right Total Hip: 0.887 -1.0 Procedure Note Juvenal Pollock MD - 03/18/2019 EXAM: BONE DENSITY AXIAL (HIP, PELVIS, SPINE) 03/18/2019 14:43 PM TECHNIQUE: DXA scanning using a Cobase Advance bone densitometer teresa [facility] was performed on03/18/2019 14:43 PM CLINICAL INDICATIONS: screen for osteoporosis RELEVANT CLINICAL HISTORY: R93.7:Abnormal findings on diagnostic imagingof other parts of musculoskeletal system M85.80:Osteopenia, unspecified location COMPARISON: There is a comparison study from December 07, 1914 performedon Psonar A. Due to differences in technology, a validcomparison cannot be made and thus the current study will serve as a new baseline. FINDINGS: 1. Quality of the examination at the L1-2 lumbar spine: Adequate. 2. Quality of the examination at the dual hip: Adequate. BONE MINERAL DENSITY (BMD) CURRENT BONE MINERAL DENSITY (BMD) Region: g/cm2 T-Score Z-Score Lumbar 1-2 Spine: 1.130 -0.3 Left Femoral Neck: 0.846 -1.4 Left Total Hip: 0.932 -0.6 Right Femoral Neck: 0.815 -1.6 Right Total Hip: 0.887 -1.0 IMPRESSION IMPRESSION: Based on BMD and WHO criteria diagnosis is consistent with osteopenia. * The T-score reflects standard deviations above (+) or below (-) a20-40 year-old, , female, [place] population. At this age, it is assumedthat peak bone mass is reached. * The Z-score reflects standard deviations above (+) or below (-) an age,sex, ethnicity, and weight-matched population. * Osteoporosis is defined as a skeletal disorder characterized bycompromised bone strength predisposing to an increased risk of fracture. Bonestrength reflects the integration of two main features: BMD and bone quality(ANAIS 2001;285:785-795). Any history of fragility fracture is suggestive of osteoporosis, regardless of the BMD data acquired in this study. * Secondary causes of bone loss should be evaluated if clinicallyindicated as the etiology of low BMD cannot be determined by BMD measurement alone. The physician who interpreted this study is a Certified Clinical It Network Engineer by the International Society of Clinical DensitometryJuvenal Pollock MD, CCD. Crystal Santamaria MD DEXA ORDERABLES Final Result * CYTOLOGY-CLAY PRESS OPERATOR, LIQUID BASED (03/12/2019 4:16 PM EST) Case Report Gynecologic Cytology Report Case: [id number] Authorizing Provider: Crystal Santamaria MD Collected: 03/12/2019 04:16 PM Ordering Location: [facility] Internal Received: 03/12/2019 04:17 PM [facility] Screen: Leandro Leong Specimen: Cervical/Endocervi eric, ThinPrep 03/17/2019 11:21 AM EST [facility] LMP Postmenopausal 03/17/2019 11:21 AM EST [facility] Specimen Adequacy Satisfactory For Evaluation; Endocervical/Trans formation Zone Component Absent. 03/17/2019 11:21 AM EST [facility] ---Cytologic Interpretati on--- Negative for Intraepithelial Lesion or Malignancy HPV Testing Was Not Performed Due To The Results Of This Pap Test This Pap Test was imaged with the assistance of the [employer]asys ThinPrep Imaging System and screened by a Fare Enforcement Officer. 03/17/2019 11:21 AM EST [facility] at 1121 EST PAP METHOD ThinPrep 03/17/2019 11:21 AM EST [facility] Images 03/17/2019 11:21 AM EST [facility] HPV Reflex? HPV Testing NOT ordered () 03/17/2019 11:21 AM EST [facility] Fluid (qualifier value) Collection / Unknown 03/12/2019 4:16 PM EST 03/12/2019 4:17 PM EST us Crystal Santamaria MD CYTOLOGY Final Result [facility] [address] [place] [address] * HEPATITIS C ANTIBODY (12/27/2015 12:02 PM EST) HEP C AB Negative Negative LAB, [facility] 12/27/2015 12:0 2 PM EST 12/27/2015 3:16 PM EST Crystal Santamaria MD IMMUNOLOGY ORDERABLES Final Result LAB, [facility] [address] [place] [address] from Last 3 Months or Most Recently Relevant to Health Maintenance Insurance MEDICARE [employer] PPO Care Teams Technical Research Scientist Relationship Specialty Start Date End Date Crystal Santamaria MD [address] [address] PCP - General 04/10/07
--- OUTSIDE RECORDS SUMMARY | 2024-09-11 10:05 | XMS_ITS | Patient Health Record ---
Author Organization [facility] in [place] Address [address] [place] [address] Care Team Providers Care Material Combiner Name Role Phone LILIYA VALENTIN CNP Primary Care Provider Liliya Valentin Unavailable [phone] Allergies No Known Allergies Reason For Referral No Information Medications Medication SIG (Take, Route, Frequency, Duration) Notes Start Date End Date Status Losartan Potassium 50 MG 1 tablet Orally Once a day for 30 days 07/29/2023 Active FLUoxetine HCl 20 MG 1 tablet Orally Onc e a day for 90 days Active Simvastatin 20 MG 1 tablet in the even ing Orally Once a day 07/29/2023 Active Omeprazole 40 MG 1 capsule 30 minutes before morning meal Orally Once a day 07/29/2023 Active Womens Multivitamin Active Cholecalciferol 125 MCG (500 0 UT) 1 capsule Orally every other day 07/29/2023 Active amLODIPine Besylate 5 MG 1 tablet Orally Once a day 07/29/2023 Active Levothyroxine Sodium 75 MCG 1 tablet in the morning on an empty stomach Orally Once a day 07/29/2023 Active Social History Tobacco Use: Social History Observation Description Date Details (start date - stop date) Former Smoker 02/18/1965 - 02/19/2011 Tobacco Control (Standard) Question Answer Notes Tobacco use: Former smoker When did you start smoking? 02/18/1965 When did you stop smoking? 02/19/2011 How long has it been since y ou last smoked? Greater than 10 years Additional Findings: Tobacco non-user Ex-heavy c igarette smoker (20-30/day) AUDIT-C (Standard) Question Answer Notes Did you have a drink contain ing alcohol in the past year? Yes How often did you have six o r more drinks on one occasion in the past year? Never (0 point) How many drinks did you have on a typical day when you were drinking in the past year? 1 or 2 drinks (0 point) How often did you have a dri nk containing alcohol in the past year? 2 to 3 times a week (3 points) Points 3 Interpretation Positive Section Notes: Patient states also used to be a heavy Marijuana smoker, but has been 20 years since then ( 07/29/23) Patient states also used to be a heavy Marijuana smoker, but has been 20 years since then ( 07/29/23) Problems Problem Type SNOMED Code ICD Code Onset Dates Problem Status W/U Status Risk Notes Problem Hypertension (17134101) Hypertension (I10) Active confirmed Problem Gastroesophageal reflux disease (095921591) GERD (gastroesophageal reflux disease) (K21.9) Active confirmed Problem Arthritis (8997633) Arthritis (M19.90) Active c onfirmed Problem Polyp of colon (disorder) (87610407) Colon polyps (K63.5) Active confirmed Problem hypercholesterolemia (disorder) (58215153) Hypercholesteremia (E78.00) Active confirmed Problem Mixed anxiety and depressive disorder (716152670) Anxiety and depression (F41.8) Active confirmed Vital Signs Height 62 in 01/09/2024 Weight 205.4 lbs 01/09/2024 BMI 37.56 kg/m2 01/09/2024 Encounters Encounter Location Date Provider Diagnosis [facility] [address] [place] [address] 03/05/2024 Liliya Valentin [facility] [address] [place] [address] 06/29/2024 Liliya Valentin [facility] [address] [place] [address] 09/07/2024 Liliya Valentin Arthritis M19.90 [facility] [address] [place] [address] 01/09/2024 Liliya Valentin Anxiety and depressi on F41.8 ; Arthritis M19.90 and Lightheadedness R42 Assessments Encounter Date Diagnosis (ICD Code) Assessment Notes Treatment Notes Treatment Clinical Notes Section Notes 01/09/2024 Anxiety and depression (ICD-10 - F41.8) 01/09/2024 Arthritis (ICD-10 - M19.90) hands also some trigger finger on left discussed splints for sleeping, volatren otc if getting worse, fu s 09/07/2024 Arthritis (ICD-10 - M19.90) 01/09/2024 Lightheadedness (ICD-10 - R42) only with changing positions, bending over increase hydration 6-8 bottles water/day add electrolytes fu if not improving Plan Of Treatment Pending Test Test Name Order Date HEMOGLOBIN A1C (GLYCO) 09/07/2024 IRON, TOTAL 09/07/2024 LIPID PANEL (CHOL/TRIG/HDL/LDL) 09/08/19 25 VITAMIN D, 25 LEVEL (TOTAL) 09/07/2024 Insulin Level 09/07/2024 THYROID PANEL (T4/TSH/FREE T3) CMP (COMP MET HIRSCH) w/eGFR CKD-EPI 2024 CBC WITH DIFF 09/07/2024 Insurance Providers Payer Name Payer Address Payer Phone Subscriber Number Group Number Insured Name Patient Relationship to Insured Coverage Start Date Coverage End Date [employer] MEDICARE [address] [place], [place] [id number] Ania Le Self - patient is the insured Medical (General) History Medical History History ICD Code Depression F32.A GERD (gastroesophageal reflux disease) K 21.9 Hypercholesteremia E78.00 Hypertension I10 Surgical History Surgery Date(Month/Year) TONSILLECTOMY,UNDER 12YRS CATARACT REMOVAL COMPLEX - bilateral CHOLECYSTECTOMY
--- OUTSIDE RECORDS SUMMARY | 2024-09-11 10:19 | XMS_ITS | CCD ---
Author Organization [facility] Care Team Providers Care Progressive Care Unit Registered Nurse Name Role Phone Crystal Santamaria MD Primary Care Provider Unavailable Primary Care Provider Unavailpatrick e MISC, DR BLAKELY Attending Unavailable MISC, DOCTOR Consulting Unavailable MISC, DR BLAKELY Primary Care Unavailable MISC, DR BLAKELY Admitting Unavailable CRYSTAL SANTAMARIA Primary Care Unavailable CRYSTAL SANTAMARIA Attending Unavailable CRYSTAL SANTAMARIA Referring Unavailable CRYSTAL SANTAMARIA Primary Care Unavailable CRYSTAL SANTAMARIA Primary Care Unavailable CRYSTAL SANTAMARIA Attending Unavailable CRYSTAL SANTAMARIA Referring Unavailable CRYSTAL SANTAMARIA Primary Care Unavailable CRYSTAL SANTAMARIA Attending Unavailable CRYSTAL SANTAMARIA Referring Unavailable CRYSTAL SANTAMARIA Primary Care Unavailable MAMMOGRAPHY-DIMA, SELF-REQUESTED Referring Unavailable CRYSTAL SANTAMARIA Attending Unavailable CRYSTAL SANTAMARIA Primary Care Unavailable ROSI COFFEY Attending Unavailable ROSI COFFEY Referring Unavailable Crystal Santamaria MD Primary Care Provider SHELLY EVANS Attending Unavailable SHELLY EVANS Attending Unavailable Unallocatbon MONK, Noms Provider Primary Care Provi machelle Medications Current Medications Medication Drug Class(es) Dates Sig (Normalized) Sig (Original) [id number] 200 actuat albuterol 0.09 mg/actuat metered dose inhaler (2 sources) beta2-Adrenergic Agonist Start: 07-25-2015 take 1 puff(s) by inhalation every six hours as needed for wheezing albuterol (PROAIR HFA) 108 (90 BASE) MCG/ACT Aero Soln Indications: Upper respiratory tract infection, unspecified type take 1 puff by inhalation every 6 hours as needed for Wheezing. 1 Inhaler 07/25/2015 Active amLODIPine 5 mg oral tablet (3 sources) Dihydropyridine Calcium Channel Moises Start: 04-27-2022 take 1 tablet by mouth in the morning amLODIPine (Norvasc) 5 MG tablet Take 5 mg by mouth in the morning. 04/27/2022 Active benoxinate hydrochloride 4 mg/ml / fluorescein sodium 2.5 mg/ml ophthalmic solution (1 source) Diagnostic Dye Start: 08-31-2021 End: 09-01-2021 fluorescein-benoxin ate 0.25-0.4 % 1 Drop (FLURESS) cholecalciferol 0.025 mg oral tablet (4 sources) Vitamin D take 2 tablets by mouth once daily Cholecalciferol (VITAMIN D) 1000 UNITS Tab Take 2 tablets by mouth daily. Active Comment on above: Take 2,000 Units by mouth once daily. FLUoxetine 20 mg oral capsule (4 sources) Serotonin Reuptake Inhibitor Start: 08-09-2022 take 1 capsule by mouth once daily FLUoxetine 20 MG capsule Take 1 capsule by mouth daily. 90 capsule 3 08/09/2022 Active Start: 07-27-2021 take 1 capsule by [facility] once daily FLUoxetine (PROZAC) 20 mg capsule Take 1 capsule by mouth once daily. 0 07/27/2021 Active Start: 09-08-2020 take 2 capsules by out once daily FLUoxetine 20 MG capsule TAKE 2 CAPSULES BY MOUTH EVERY DAY 180 capsule 4 09/08/2020 Active Comment on above: Take 1 capsule by [facility] once daily. ketorolac tromethamine 5 mg/ml ophthalmic solution (2 sources) Nonsteroidal Anti-inflammatory Drug, Cyclooxygenase Inhibitor Start: 09-29-19 ketorolac (Acular) 0.5 % ophthalmic solution Indications: Age-related nuclear cataract of both eyes Administer 1 drop into both eyes in the morning and 1 drop at noon and 1 drop in the evening and 1 drop before bedtime. 5 mL 1 09/28/2022 Active levothyroxine sodium 0.075 mg oral tablet (6 sources) l-Thyroxine Start: 07-27-19 take 1 tablet by mouth in the morning levothyroxine (Synthroid, Levoxyl) 75 MCG tablet Take 1 tablet by mouth in the morning. 07/26/2022 Active Start: 06-06-2022 take 1 tablet by [facility] once daily levothyroxine (SYNTHROID) 75 mcg tablet Take 75 mcg by mouth once daily. 0 07/24/2021 Active Start: 06-23-2020 take 1 tablet by [facility] once daily levothyroxine 75 MCG tablet TAKE 1 TABLET BY MOUTH EVERY DAY 90 tablet 4 06/23/2020 Active Comment on above: Take 75 mcg by mouth once daily. losartan potassium 50 mg oral tablet (6 sources) Angiotensin 2 Receptor Moises Start: 04-27-2022 take 1 tablet by mouth in the morning losartan (Cozaar) 50 MG tablet Take 50 mg by mouth in the morning. 04/27/2022 Active Start: 07-06-2021 take 1 tablet by [facility] once daily losartan (COZAAR) 25 mg tablet Take 1 tablet by mouth once daily. 0 07/06/2021 Active Start: 06-08-2020 take 1 tablet by [facility] once daily losartan 25 MG tablet TAKE 1 TABLET BY MOUTH EVERY DAY 90 tablet 4 06/08/2020 Active Comment on above: Take 1 tablet by [facility] once daily. Multiple Vitamins-Minerals (Hair Skin Nails) capsule (2 sources) Multiple Vitamin s-Minerals (Hair Skin Nails) capsule Take by mouth. Active Multiple Vitamin s-Minerals (Hair Skin Nails) capsule Take by mouth. 0 Active nystatin 100 unt/mg topical powder (4 sources) Polyene Antifungal Start: 08-31-2020 nystatin 10 0000 UNIT/GM Powder powder Indications: Veronica infection of flexural skin Apply 1 Application topically 3 times daily. 45 g 08/31/2020 Active Start: 08-31-2020 nystatin (MYCO STATIN) powder Apply 1 application to affected area as needed. 0 08/31/2020 Active Comment on above: Apply 1 application to affected area as needed. omeprazole 40 mg delayed release oral capsule (6 sources) Proton Pump Inhibitor Start: take 1 capsule by mouth once daily omeprazole [address] capsule TAKE 1 CAPSULE BY MOUTH EVERY DAY 90 capsule 4 06/11/2022 Active Start: 04-07-2021 take 1 capsule by [facility] once daily omeprazole [address] capsule TAKE 1 CAPSULE BY MOUTH EVERY DAY 90 capsule 4 04/07/2021 Active Comment on above: Take 1 capsule by [facility] once daily. phenylephrine hydrochloride 25 mg/ml ophthalmic solution (1 source) alpha-1 Adrenergic Agonist Start: 09-01-19 End: 09-02-19 PHENYLephrine 2.5 % 1 Drop (AK-DILATE, ARPAN-SYNEPHRINE) proparacaine hydrochloride 5 mg/ml ophthalmic solution (1 source) Local Anesthetic Start: 09-01-19 End: 09-02-19 proparacaine 0.5 % 1 Drop (ALCAINE) simvastatin 20 mg oral tablet (6 sources) HMG-CoA Reductase Inhibitor Start: 07-27-19 take 1 tablet by mouth once daily in the evening simvastatin 20 MG tablet TAKE 1 TABLET BY MOUTH EVERY DAY IN THE EVENING AT 6PM 90 tablet 4 07/26/2022 Active Start: 06-08-2020 take 1 tablet by cris[facility] once daily simvastatin (ZOCOR) 20 mg tablet Take 20 mg by mouth once daily. 0 07/06/2021 Active Comment on above: Take 20 mg by mouth once daily. tropicamide 10 mg/ml ophthalmic solution (1 source) Anticholinergic Start: 08-31-2021 End: 09-01-2021 tropicamide 1 % 1 Drop (MYDRIACYL) Completed/Discontinued Medications Medication Drug Class(es) Dates Sig (Normalized) Sig (Original) Biotin (2 sources) BIOTIN ORAL Take by mouth once daily. 0 Active Comment on above: Take by mouth once d aily. gabapentin 100 mg oral capsule (3 sources) Anti-epileptic Agent Start: 04-07-2021 End: 09-04-2021 gabapentin (NEURONTIN) 100 mg capsule 1 capsule once daily. 0 07/16/2021 Active Comment on above: 1 capsule once daily . Problems Active Problems Problem Classification Problem Date Documented Date Episodic/Chronic Cataract (11 sources) Bilateral senile combined form cataracts of eyes; Translations: [Combined forms of age-related cataract, bilateral] Onset: 09-25-2022 Resolved: 02-25-2023 Chronic Chronic obstructive pulmonary disease and bronchiectasis (4 sources) Chronic bronchitis; Translations: [Unspecified chronic bronchitis] 04-23-2021 Chronic Disorders of lipid metabolism (2 sources) Hyperlipidemia; Translations: [Hyperlipidemia, unspecified] 04-23-2021 Chronic Esophageal disorders (2 sources) Gastro-esophageal reflux disease with esophagitis; Translations: [Reflux esophagitis] 04-23-2021 Chronic Essential hypertension (4 sources) Benign essential hypertension; Translations: [Essential (primary) hypertension] Onset: 05-18-2022 01-17-2010 Chronic Mood disorders (2 sources) Depressive disorder; Translations: [Other specified depressive episodes] 04-23-2021 Chronic Other aftercare (4 sources) 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; Translations: [OTH PARKING [employer]ULATION ENFORCEMENT OFFICER CURRENT DRUG THERAPY] Onset: 05-02-2022 Episodic Other diseases of kidney and ureters (2 sources) Cyst of kidney; Translations: [Cyst of kidney, acquired] 01-17-2010 Episodic Other ear and sense organ disorders (2 sources) Sensorineural hearing loss; Translations: [Unspecified sensorineural hearing loss] Onset: 07-18-2010 07-18-2010 Chronic Other eye disorders (1 source) Bilateral vitreous degeneration of eyes; Translations: [Vitreous degeneration, bilateral] Chronic Other nutritional; endocrine; and metabolic disorders (2 sources) Body mass index 30+ - obesity; Translations: [Obesity, unspecified] Onset: 06-26-2016 04-23-2021 Chronic Peripheral and visceral atherosclerosis (2 sources) Arteriosclerotic vascular disease; Translations: [Unspecified atherosclerosis] 04-23-2021 Chronic Residual codes; unclassified (2 sources) Hypersomnia; Translations: [Hypersomnia, unspecified] Onset: 04-26-2008 01-17-2010 Chronic Residual codes; unclassified (2 sources) Obstructive sleep apnea syndrome; Translations: [Obstructive sleep apnea (adult) (pediatric)] Onset: 05-28-2008 04-23-2021 Chronic Residual codes; unclassified (2 sources) Periodic limb movement disorder; Translations: [Periodic limb movement disorder] Onset: 12-23-2020 12-23-2020 Chronic Retinal detachments; defects; vascular occlusion; and retinopathy (4 sources) Bilateral epiretinal membrane of eyes; Translations: [Puckering of macula, bilateral] Onset: 09-25-2022 Chronic Screening and history of mental health and substance abuse codes (2 sources) Personal history of nicotine dependence; Translations: [Personal history of nicotine dependence] Onset: 07-11-2022 Episodic Spondylosis; intervertebral disc disorders; other back problems (2 sources) Degeneration of cervical intervertebral disc; Translations: [Other cervical disc degeneration, unspecified cervical region] Onset: 11-09-2016 11-09-2016 Chronic Thyroid disorders (2 sources) Hypothyroidism, unspecified; Translations: [Hypothyroidism, unspecified] Onset: 08-09-2022 Chronic Past or Other Problems Problem Classification Problem Date Documented Da te Episodic/Chronic Diabetes mellitus without complication (6 sources) Prediabetes; Translations: [Prediabetes] Onset: 11-20-2013 Resolved: 11-20-2013 04-23-2021 Episodic Inflammation; infection of eye (except that caused by tuberculosis or sexually transmitteddisease) (3 sources) Blepharitis of upper and lower eyelids of bilateral eyes; Translations: [Unspecified blepharitis right eye, upper and lower eyelids] Onset: 02-25-2023 02-25-2023 Episodic Mood disorders (2 sources) Mood disorders Onset: 06-14-2020 Resolved: 08-09-2022 06-14-2020 Other and unspecified benign neoplasm (2 sources) Adenomatous polyp of colon ; Translations: [Benign neoplasm of colon, unspecified] Onset: 05-19-2020 07-26-2020 Episodic Other and unspecified benign neoplasm (2 sources) Gastric polyp; Translations: [Polyp of stomach and duodenum] Onset: 07-26-2020 07-26-2020 Episodic Other eye disorders (3 sources) Dry eyes; Translations: [Dry eye syndrome of bilateral lacrimal glands] Onset: 02-25-2023 02-25-2023 Episodic Other gastrointestinal disorders (2 sources) Dysphagia; Translations: [Dysphagia, unspecified] Onset: 06-27-2020 06-27-2020 Episodic Other lower respiratory disease (2 sources) Snoring; Translations: [Snoring] Onset: 04-26-2008 01-17-2010 Episodic Other lower respiratory disease (2 sources) Multiple nodules of lung; Translations: [Other nonspecific abnormal finding of lung field] Onset: 07-26-2020 07-26-2020 Episodic Other screening for suspected conditions (not mental disorders or infectious disease) (11 sources) Patient encounter status; Translations: [Encounter for screening mammogram for malignant neoplasm of breast] Onset: 09-30-2014 Episodic Substance-related disorders (2 sources) Tobacco user; Translations: [Nicotine dependence, unspecified, uncomplicated] Resolved: 07-27-2021 01-17-2010 Chronic Results Test Name Value Interpretation Reference Range Facility Optical coherence tomography study reporton 10-16-2023 [facility] Radiology Study observation (narrative) [facility] CT LUNG CANCER SCREENINGon 0 07-16-2022 CT LUNG CANCER SCREENING LOW-DOSE CT LUNG SCREENING EXAM: CT LUNG [...] cyst. Bones and soft tissues: No abnormalities. IMPRESSION: Pulmonary nodule screening result: Lung-RADS 2: Benign Appearance or Behavior (Nodules with a very low likelihood of becoming a clinically active cancer due to size or lack of growth). Recommendation (based on the most suspicious nodule): Continue annual screening with LDCT in 12 months Normal [facility] MAMMO SCREENING WITH NAILA BI LATERALon 07-11-2022 MAMMO SCREENING WITH NAILA BILATERAL EXAM: MAMMO SCREENING WITH NAILA BILATERAL, 07/11/2022 [...] no suspicious masses, calcifications, or architectural distortions. IMPRESSION: No mammographic evidence of malignancy. BI-RADS: 1: Negative Recommendation: Routine mammography. Recommendation Laterality: Bilateral The current National Comprehensive Cancer Network and [place] [employer] guidelines recommend women undergo a screening mammogram every year over the age of 40 and continue mammographic screening as long as they are in good health. Screening mammography under age 40 may occur for women who are at increased risk for breast cancer. Table formatting from the original result was not included. MAMMO STANDARD RISK Normal [facility] BUNon 05-02-2022 Urea nitrogen [Mass/Vol] 22.0 mg/dL Critically high 7.0-18.0 [facility] Comment on above: Performed By: #### E LEC BUN, CREA #### [facility] [address] [place] [address] Dr. Ursula Castillo CREATININEon 05-02-2022 Creatinine [Mass/Vol] 0.72 mg/dL Normal 0.55-1.02 [facility] Comment on above: Performed By: #### E LEC, BUN, CREA #### [facility] [address] [place] [address] Dr. Ursula Castillo EGFR-AF VENEZUELAN >60 Normal >=60 [facility] Comment on above: Performed By: #### E LEC, BUN, CREA #### [facility] [address] [place] [address] Dr. Ursula Castillo EGFR-NON AF VENEZUELAN >60 Normal >=60 [facility] Comment on above: Performed By: #### E LEC, BUN, CREA #### [facility] [address] [place] [address] Dr. Ursula Castillo ELECTROLYTESon 05-02-2022 Anion gap [Moles/Vol] 11.8 mmol/L Normal [facility] Comment on above: Performed By: #### E LEC, BUN, CREA #### [facility] [address] [address] [address] Ursula Castillo Chloride [Moles/Vol] 105 mmol/L Normal 98-107 [facility] Comment on above: Performed By: #### E LEC, BUN, CREA #### [facility] [address] [place] [address] Dr. Ursula Castillo CO2 [Moles/Vol] 29.8 mmol/L Normal 21.0-32.0 [facility] Comment on above: Performed By: #### E LEC, BUN, CREA #### [facility] [address] [place] [address] Dr. Ursula Castillo Potassium [Moles/Vol] 4.6 mmol/L Normal 3.5-5.1 [facility] Comment on above: Performed By: #### E LEC, BUN, CREA #### [facility] [address] [address] [address] Ursula Castillo Sodium [Moles/Vol] 142 mmol/L Normal 136-145 [facility] Comment on above: Performed By: #### E LEC, BUN, CREA #### [facility] [address] [place] [address] Dr. Ursula Castillo US PELVIC W TRANSVAGINALon 0 09-14-2021 US PELVIC W TRANSVAGINAL EXAM: US PELVIC W TRANSVAGINAL, 09/14/2021 14:02 PM CLINICAL INDICATIONS: outside plain film revealed calcifications in pelvis - ? leiomyoma versus dermoid ovary R93.7:Abnormal x-ray of pelvis COMPARISON: No prior studies available for comparison. TECHNIQUE: Real-time, grayscale ultrasound evaluation of the pelvis was performed utilizing transabdominal and transvaginal approaches. Duplex scan is performed. Color flow images and spectral waveforms obtained. FINDINGS: Uterus: The uterus is heterogenous in echotexture and atrophic in size measuring 3.6 x 3.2 x 2.4 cm. The endometrial stripe measures 5 mm, which is mildly thickened. Calcified fibroid in the uterus measures 1.3 x 0.5 x 0.9 cm 1; this could potentially correlate to the calcification mentioned by the outside plain film. Ovaries: Bilateral ovaries are not visualized likely due to atrophy. No adnexal masses are identified. Urinary Bladder: Limited imaging of the urinary bladder demonstrates no abnormality. There is no free fluid in the pelvic cul-de-sac. IMPRESSION: 1. Calcified uterine fibroid. 2. Borderline endometrial thickening measuring 5 mm. Recommend correlation for history of vaginal bleeding. 3. Nonvisualization of the ovaries. I personally viewed and interpreted these images and I have reviewed and approved this report. Normal [facility] CNPNon 06-22-2021 CNPN Telephone (OPHTLN) CIARA MARTIN ([id number]) 1950 F Date Time Provider Department 06/22/21 DELMI YOUSSEF During your visit today, we recorded the following information about you: Maria M Ruvalcaba 06/22/2021 1:15 PM Signed LVM to let patient know appointment was cancelled today due to and emergency with Dr. Youssef. LVM at 1:15PM 06/22/2021 Maria M Ruvalcaba 06/22/2021 2:17 PM Signed Patient has been rescheduled Allergies As of Date: 06/22/2021 (Not on File) Date Reviewed: Never Reviewed Reason for Visit: Appointment [[id number]] Problem List As Of Date: 06/22/2021 (None) Encounter Status:Closed by MARIA M RUVALCABA on 06/22/21 Normal [facility] Breast - bilateral Screen ingon 06-05-2021 IMPRESSION: No mammographic evidence of malignancy. BI-RADS: 2: Benign Recommendation: Routine mammography. Recommendation Laterality: Bilateral The current National Comprehensive Cancer Network and [place] [employer] guidelines recommend women undergo a screening mammogram every year over the age of 40 and continue mammographic screening as long as they are in good health. Screening mammography under age 40 may occur for women who are at increased risk for breast cancer. OLOGY EXAM: MAMMO SCREENIN G WITH NAILA BILATERAL, 06/05/2021 13:30 PM CLINICAL INDICATIONS: Screening COMPARISON: Comparison was made with the prior study of 05/26/2020 and 03/18/2019 TECHNIQUE: 2-D MLO and CC views were obtained of the bilateral breasts. 3-D MLO and CC digital tomosynthesis images were also acquired. Computer aided detection was utilized. FINDINGS: The breasts have scattered areas of fibroglandular density. Bilateral benign appearing calcifications and masses are noted. There are no suspicious masses, calcifications, or architectural distortions. RADIOLOGY Loli Watts DO - 06/05/2021 EXAM: MAMMO SCREENING WITH NAILA BILATERAL, 06/05/2021 13:30 PM CLINICAL INDICATIONS: Screening COMPARISON: Comparison was made with the prior study of 05/26/2020 and 03/18/2019 TECHNIQUE: 2-D MLO and CC views were obtained of the bilateral breasts. 3-D MLO and CC digital tomosynthesis images were also acquired. Computer aided detection was utilized. FINDINGS: The breasts have scattered areas of fibroglandular density. Bilateral benign appearing calcifications and masses are noted. There are no suspicious masses, calcifications, or architectural distortions. IMPRESSION IMPRESSION: No mammographic evidence of malignancy. BI-RADS: 2: Benign Recommendation: Routine mammography. Recommendation Laterality: Bilateral The current National Comprehensive Cancer Network and [place] [employer] guidelines recommend women undergo a screening mammogram every year over the age of 40 and continue mammographic screening as long as they are in good health. Screening mammography under age 40 may occur for women who are at increased risk for breast cancer. [facility] Radiology Study observation (narrative) [facility] MG Breast - bilateral Screen ingOrdered By: Loli Watts on 06-05-2021 [facility] Work Phone: Encounters Encounter Date Encounter Type Care Provider Facility Start: 10-16-2023 End: 10-16-2023 Bamboo flowsheet Shelly Evans DO Work Phone: [facility] Start: 10-16-2023 End: 10-16-2023 Bamboo flowsheet Shelly Evans DO Work Phone: [facility] Start: 10-16-2023 End: 10-16-2023 ambulatory SHELLY EVANS Not Available Start: 07-30-2023 End: 07-30-2023 Telephone encounter Tori Cruz Central Scheduling Comment on above: Medical Records Start: 02-25-2023 End: 02-25-2023 ambulatory SHELLY EVANS Not Available Start: 08-09-2022 ambulatory CRYSTAL Navarro ty:[facility] Start: 07-11-2022 ambulatory CRYSTAL Navarro ty:[facility] Start: 05-18-2022 ambulatory CRYSTAL Navarro ty:[facility] Start: 05-02-2022 End: 05-03-[address] DOCTOR STREETER Facility: Start: 09-26-2021 Orders Only Delmi Youssef MD Work Phone: Ophthalmology Comment on above: Combined forms of ag e-related cataract of both eyes (Primary Dx) Start: 09-14-2021 ambulatory CRYSTAL Navarro ty:[facility] Start: 08-31-2021 End: 08-31-2021 Patient encounter procedure Delmi Youssef MD Work Phone: Ophthalmology Comment on above: Combined forms of ag e-related cataract of both eyes (Primary Dx); Epiretinal membrane (ERM) of both eyes; Vitreous degeneration, bilateral Start: 06-22-2021 Telephone encounter Delmi corbett MD Work Phone: Ophthalmology Comment on above: Appointment Start: 06-05-2021 End: 06-05-2021 Subsequent hospital visit by physician Crystal Santamaria MD Work Phone: [facility] Comment on above: Arrived Start: 01-17-2010 Patient encounter status Crystal Santamaria MD Work Phone: [facility] Procedures Date Procedure Procedure Detail Performing Clinician Start: 10-16-2023 Computerized ophthal osmar imaging retina Shelly Evans DO Work Phone: Start: 10-16-2023 End: 10-16-2023 [facility] xm&eval comprhnsv estab pt 1/> Epiretinal membrane (ERM) of both eyes Shelly Evans DO Work Phone: Comment on above: Epiretinal membrane (ERM) of both eyes (Primary Dx); Bilateral posterior capsular opacification; Dry eyes; Blepharitis of upper and lower eyelids of both eyes, unspecified type Start: 07-11-2022 Mammography Shelly velasquez DO Work Phone: Start: 06-05-2021 End: 06-05-2021 Screening mammography bi 2-view breast inc cad Self-Requested MammographyJuanis Work Phone: Start: 06-14-2020 Lipid 1996 panel - S andie or Plasma Crystal Santamaria MD Work Phone: Start: 05-25-2020 Colonoscopy Crystal haddad MD Work Phone: Plan of Treatment Date Care Activity Detail Author Start: 05-25-2030 Screening for malign ant neoplasm of colon [facility] Start: 03-19-2029 Tetanus vaccination TETANUS [facility] Start: 06-14-2025 Fasting lipid profile LIPID SCREENIN G [facility] Start: 06-14-2025 Lipid panel LIPID SCREENING [facility] Start: 07-27-2024 DIABETES SCREEN [facility] Start: 10-20-2023 Influenza vaccination O TAN [facility] Start: 10-16-2023 End: 10-16-2023 Patient encounter procedure 10/16/2023 1:30 PM EDT Office Visit [facility] [address] [place] [id number] Shelly Evans, DO [address] [place] [address] Arrived [facility] Comment on above: Arrived Start: 08-10-2023 Medicare Annual Well ness (AWV) Medicare Annual Wellness (AWV) [facility] Start: 08-10-2023 PREVENTATIVE HEALTH VISIT PREVENTATIVE HEALTH VISIT [facility] Start: 07-12-2023 Screening for malign ant neoplasm of breast [facility] Start: 07-12-2023 Screening for malign ant neoplasm of lung LUNG CANCER SCREENING [facility] Start: 05-26-2023 Colonoscopy COLONOSCOPY [facility] Start: 05-26-2023 Screening for malign ant neoplasm of colon COLONOSCOPY [facility] Start: 10-19-2022 COVID-19 VACCINE () COVID-19 VACCINE () [facility] [facility] Start: 08-31-2022 End: 02-22-2023 IOL BIOMETRY W/ IOL CALC OU (BOTH EYES) IOL BIOMETRY W/ IOL CALC OU (BOTH EYES) OPHT Imaging Routine Combined forms of age-related cataract of both eyes Expected: 08/31/2022, Expires: 02/22/2023 [facility] Work Phone: Comment on above: Expected: 08/31/2022 , Expires: 02/22/2023 Start: 07-27-2022 Thyroid stimulating hormone measurement TSH [facility] Start: 06-05-2022 Mammography MAMMOGRAM [facility] Start: 06-05-2022 Screening mammography MAMMOGRA M SCREENING DISCUSSION [facility] Start: 10-19-2021 Influenza vaccination C [facility] Start: 07-27-2021 End: 07-27-2021 Patient encounter procedure 07/27/2021 Office Visit General Medicine Crystal Santamaria MD [address] [place] [address] Primary Care Outpatient Care Karen Junior Start: 07-04-2021 Screening for malign ant neoplasm of lung LUNG CANCER SCREENING [facility] Start: 06-14-2021 Thyroid stimulating hormone measurement TSH [facility] Start: 05-28-2021 COVID-19 VACCINE (4 - Booster for Pfizer series) COVID-19 VACCINE (4 - Booster for Pfizer series) [facility] Start: 03-18-2021 DEXA SCAN DEXA SCAN [facility] Start: 02-18-2021 ADVANCE DIRECTIVE DISCUSSION ADVANCE DIRECTIVE DISCUSSION [facility] Start: 2014 BONE DENSITY BONE DENSITY [facility] Start: 2014 PNEUMOCOCCAL: 65+ (1 - PCV) PNEUMOCOCCAL: 65+ (1 - PCV) [facility] Start: 2014 PNEUMOVAX AGE 65 AND OVER WITH 5YR LOOKBACK (#1) PNEUMOVAX AGE 65 AND OVER WITH 5YR LOOKBACK (#1) [facility] Start: 03-06-2013 PREVENTATIVE HEALTH VISIT PREVENTATIVE HEALTH VISIT [facility] Start: 2009 Hepatitis B vaccination HEP B VACCINE (1 of 3 - Risk 3-dose series) [facility] Start: 10-29-1999 SHINGRIX VACCINE (1 of 2) SHINGRIX VACCINE (1 of 2) [facility] Start: 1994 COLOGUARD (FIT-DNA) COLOGUARD (FIT-D NA) [facility] Start: 1994 Colonoscopy COLONOSCOPY [facility] Start: 1994 COLORECTAL CANCER SCREENING COLORECTAL CANCER SCREENING [facility] Start: [address] COLONOGRAPHY [facility] Start: 1994 DIABETES SCREEN DIABETES SCREEN [facility] Start: 1994 FECAL OCCULT BLOOD FECAL OCCULT BLOO D [facility] Start: 1994 LIPID SCREEN LIPID SCREEN [facility] Start: 1994 SIGMOIDOSCOPY SIGMOIDOSCOPY [facility] Start: 1989 Mammography MAMMOGRAM [facility] Start: 1968 Urine microalbumin profile DTAP,TDAP,TD (1 - Tdap) [facility] Start: 10-29-1967 HEPATITIS C SCREENING HEPATITIS C SC CYNTHIA [facility] Start: 1961 Adult depression screening assessment DEPRESSION SCREENING [facility] Start: 1954 COVID-19 VACCINE (1) COVID-19 VACCIN E (1) [facility] Start: 1949 Screening for malign ant neoplasm of colon [facility] OCT MACULA CIRRUS OU (BOTH EYES) OCT MACULA CIRRUS OU (BOTH EYES) OPHT Imaging Routine Combined forms of age-related cataract of both eyes 08/31/2021 1:24 PM EDT [facility] Immunizations Immunization Date Immunization Notes Care Provider Fa cility 11-15-2022 influenza virus vacc ine, unspecified formulation Shelly Evans DO Work Phone: [facility] 12-08-2021 influenza virus vacc ine, unspecified formulation Tori Cruz [facility] 12-03-2020 Influenza, High-dose Seasonal, Quadrivalent, Preservative Free Tori Cruz [facility] 10-12-2019 Influenza, High-dose Seasonal, Quadrivalent, Preservative Free Crystal Santamaria MD Work Phone: [facility] 06-06-2019 zoster vaccine recombinant Crystal Santamaria MD Work Phone: [facility] 03-19-2019 tetanus toxoid, redu prachi diphtheria toxoid, and acellular pertussis vaccine, adsorbed Crystal Santamaria MD Work Phone: [facility] 03-19-2019 zoster vaccine recombinant Crystal Santamaria MD Work Phone: [facility] 11-27-2018 influenza, high dose seasonal, preservative-free Crystal Santamaria MD Work Phone: [facility] 12-18-2017 influenza, high dose seasonal, preservative-free Crystal Santamaria MD Work Phone: [facility] 12-27-2015 influenza, high dose seasonal, preservative-free Crystal Santamaria MD Work Phone: [facility] 12-27-2015 pneumococcal polysaccharide vaccine, 23 valent Crystal Santamaria MD Work Phone: [facility] 01-21-2015 influenza, high dose seasonal, preservative-free Crystal Santamaria MD Work Phone: [facility] 01-21-2015 influenza, seasonal, injectable Crystal Santamaria MD Work Phone: [facility] 01-21-2015 pneumococcal conjuga te vaccine, 13 valent Crystal Santamaria MD Work Phone: [facility] 11-20-2013 influenza, seasonal, injectable Crystal Santamaria MD Work Phone: [facility] 03-06-2012 influenza virus vacc ine, whole virus Crystal Santamaria MD Work Phone: [facility] 01-03-2010 influenza virus vacc ine, whole virus Crystal Santamaria MD Work Phone: [facility] 04-27-2008 pneumococcal polysaccharide vaccine, 23 valent Crystal Santamaria MD Work Phone: [facility] Work Phone: 12-02-2007 influenza virus vacc ine, unspecified formulation Crystal Santamaria MD Work Phone: [facility] 04-08-2007 tetanus toxoid, redu prachi diphtheria toxoid, and acellular pertussis vaccine, adsorbed Crystal Santamaria MD Work Phone: [facility] Payers Date Payer Category Payer Medicare [id number] 2021 Medicare [employer] MEDICARE A ETNA MEDICARE PPO [id number] 2021 [address] [place] [address] PPO [id number] 1959 Medicare [id number] 1949 Unknown [id number] 1949 Unknown [id number] 1949 Unknown [id number] 1949 Unknown [id number] 1949 Unknown [id number] 1949 Unknown [id number] 1949 Unknown [id number] 1949 Unknown [id number] 1949 Unknown [id number] Social History Date Type Detail Facility Start: 07-04-2020 End: 09-25-2022 Tobacco smoking status NHIS Ex-smoker [facility] Work Phone: Start: 1965 End: 02-24-2011 History of tobacco use Current smoker [facility] Start: 1965 End: 02-24-2011 History of tobacco use Cigarette Smoker [facility] Start: 07-04-2020 End: 02-25-2023 Cigarettes smoked current (pack per day) - Reported 2 [facility] Start: 07-04-2020 End: 08-31-2021 Tobacco use and exposure Smokeless tobacco non-user [facility] Start: 06-05-2021 End: 08-09-2022 Alcohol intake Current drinker of alcohol (finding) [facility] Start: 07-11-2020 History SDOH Alcohol Comment occasionally [facility] Start: 04-13-2008 Tobacco Comment for over 30 years [facility] Start: 1950 Sex Assigned At Not on file [facility] Tobacco smoking stat [facility] Tobacco smoking consumption unknown [facility] Start: 08-31-2021 Tobacco smoking stat [facility] Never smoked tobacco [facility] Start: 08-31-2021 Tobacco Comment quit 10 years ago [facility] Start: 08-09-2022 End: 02-25-2023 Tobacco use panel [facility] Adolescent depressio n screening assessment 2 [facility] Gender identity Identifies as fe male gender (finding) [facility] Medical Equipment Procedure Code Equipment Code Equipment Origin al Text Equipment Identifier Dates by Does not appl y route. Use as directed daily [id number] Start: 04-13-2008 Check once daily [id number] Start: 06-14-2020 Goals Date Patient Goal Desired Activity /State Personal health goal Comment on above: Formatting of this n ote might be different from the original. 12/20/2015 Improve NDI Score to JOSE F [...] of 2-3/10 (0=no pain, 10=excruciating). 01/17/2016 Achieved: 04/27 Comment on above: Formatting of this n ote might be different from the original. 12/20/2015 Improve NDI Score to JOSE F [...] of 2-3/10 (0=no pain, 10=excruciating). 01/17/2016 Achieved: 04/27 Clinical Notes 06-05-2021 to 10-16-2023 Shelly Evans, - 10/16/2023 1:30 PM EDTTelephone Encounter - Sophie Ardon MA - 08/01/2023 11:31 AM EDTTelephone Encounter - Sophie Ardon MA - 08/01/2023 11:31 AM EDT Note Date & Type Note Facility 10-16-2023 Note Right Eye Quality was good. Scan locations included subfoveal. Progression has been stable. Findings include abnormal foveal contour, epiretinal membrane, lamellar hole. Left Eye Quality was good. Scan locations included subfoveal. Progression has been stable. Findings include abnormal foveal contour, epiretinal membrane. [facility] 10-16-2023 History of Present illness Narrative Images from the original note were not included. Assessment/Plan Diagnoses and all orders for this visit: Epiretinal membrane (ERM) of both eyes - Condition d/w pt. Stable. Cont to observe. Bilateral posterior capsular opacification -PCO OU: (Posterior Capsule Opacification) Can be observed without intervention if PCO is not visually significant. Nd:YAG laser capsulotomy may be considered if impairment of vision rises to a level that dose not meet the patient's functional needs or interferes with activities of daily living. Risks, benefits and alternatives to the procedure will be reviewed. If the patient has undergone Nd:YAG laser capsulotomy, they are to notify their pantograph operator promptly if they have a significant change in symptoms, such as flashes of light (photopsia), an increase in floaters, loss of visual field or decrease in visual acuity. Dry eyes - Dry Eyes OU -- Environmental changes to minimize dryness and exposure and the use of artificial tears were recommended. Blepharitis of upper and lower eyelids of both eyes, unspecified type - Blepharitis, posterior type OU - The patient exhibits inspissated meibomian glands. Warm compresses, lid massage and lid scrubs were recommended. documented in this encounter [facility] 08-01-2023 Telephone encounter Note Record request faxed to [facility] 08/01/23 [facility] 08-01-2023 Miscellaneous Notes Record request faxed to [facility] 08/01/23 Received a medical records release from [facility]. Release put in provider folder documented in this encounter [facility] 07-30-2023 Telephone encounter Note Received a medical records release from [facility]. Release put in provider folder [facility] 08-31-2021 Note HNO ID: [id number] Author: Delmi Youssef V, MD Service: ? Author Type: Physician Type: Progress Notes Filed: 08/31/2021 3:32 PM Note Text: The documentation for this note was completed by Ana Luisa Garcia, MANDY acting as a scribe for Delmi YOUSSEF MD. 08/31/2021 3:25 PM. ASSESSMENT / PLAN: 1. Combined cataract, both eyes - Offered cataract extraction by phacoemulsification and intraocular lens implant with Dr. Youssef, both eyes, left eye first - Aim: Freeman Both eyes Guarded prognosis in the setting of Epiretinal membrane with blunted fovea contour and Macular edema Both eyes - Flomax/alpha-moises? No - Toric candidate: No - PanOptix candidate: No - Anesthesia: Topical with MAC - Contact lens use No - History of LASIK/PRK/RK No - Discussed initiate twice daily eyelid scrubs pending U/S biometry and surgery - Comanage with Dr Quintero; [facility] POD #1 Cataract Presurgical Documentation Cataract: Both eyes (OU) Current Visual Acuity Right Eye Distance CC 20/25 Left Eye Distance CC 20/60 Best Corrected Vision Right Eye 20/25+1 Best Corrected Vision Left Eye 20/25-3 Glare Testing: Right Eye High 20/70 Left Eye High 20/80 Visual Function: Ciara Martin states that the decline in vision from the cataract impedes her abilities as listed in the HPI, as well as other activities of daily living. Ciara Martin has confirmed that she is no longer able to function adequately on a day-to-day basis because of her current visual condition. Further, it is my medical opinion that the cataract is the primary cause, or at least a significantly contributory cause of her visual dysfunction. With uncomplicated cataract surgery and lens implantation, it is my expectation that her visual function and quality of life will improve, significantly. The risks, benefits, alternatives, personnel and complications of cataract surgery with lens implantation were discussed with Ciara Martin in detail. she appeared to understand and asked that I proceed with plans for surgery. Patient acknowledges possible need for glasses after procedure. Informed consent form signed by physician and patient. Literature regarding cataract and cataract extraction by phacoemulsification offered. Return for preadmission testing, biometry AND intraocular lens calculations prior to surgery. The patient was offered a surgery/procedure at a [facility] facility. The surgeon/proceduralist and patient have discussed in detail the risk of exposure to and/or potential harm posed by the COVID-19 virus with having a surgery/procedure at this time versus the risk of delaying the surgery/procedure. It is not possible to know either the risk of delaying the surgery or procedure or chance of getting an infection with perfect accuracy, but a joint decision was made between the patient and the surgeon/proceduralist to proceed at this time with the scheduled surgery/procedure as indicated on the consent form. 2. 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 I have confirmed and edited as necessary the relevant ophthalmic history, ROS, and the exam findings as obtained by others. I have seen and examined Ciara Martin. I also have reviewed and agree with the assessment and plan as stated above and agree with all of its relevant components. Delmi YOUSSEF MD August 31, 2021 3:[address] [facility] 08-31-2021 Note HNO ID: [id number] Author: Sunli Logan OD Service: ? Author Type: MRI ASSISTANT Type: Progress Notes Filed: 08/31/2021 3:34 PM Note Text: ASSESSMENT/PLAN: 1. Combined forms of age-related cataract of both eyes - ICD9: 366.19, ICD10: H25.813 Dr Delmi Youssef Cataract evaluation today 2. Vitreous degeneration, bilateral - ICD9: 379.21, ICD10: H43.813 (primary diagnosis) Monitor 3. Epiretinal membrane (ERM) of both eyes - ICD9: 362.56, ICD10: H35.373 Pt ed Has been seen by retina specialist in [place] ~2016 I have confirmed and edited as necessary the relevant ophthalmic history, ROS, and the exam findings as obtained by others. I have seen and examined this patient. I also have reviewed and agree with the assessment and plan as stated above and agree with all of its relevant components. Sunil Logan, OD August 31, 2021 2:[address] [facility] 08-31-2021 History of Present illness Narrative The documentation for this note was completed by Ana Luisa Garcia, MANDY acting as a scribe for Delmi YOUSSEF MD. 08/31/2021 3:25 PM. ASSESSMENT / PLAN: 1. Combined cataract, both eyes - Offered cataract extraction by phacoemulsification and intraocular lens implant with Dr. Youssef, both eyes, left eye first - Aim: Freeman Both eyes Guarded prognosis in the setting of Epiretinal membrane with blunted fovea contour and Macular edema Both eyes - Flomax/alpha-moises? No - Toric candidate: No - PanOptix candidate: No - Anesthesia: Topical with MAC - Contact lens use No - History of LASIK/PRK/RK No - Discussed initiate twice daily eyelid scrubs pending U/S biometry and surgery - Comanage with Dr Quintero; [facility] POD #1 Cataract Presurgical Documentation Cataract: Both eyes (OU) Current Visual Acuity Right Eye Distance CC 20/25 Left Eye Distance CC 20/60 Best Corrected Vision Right Eye 20/25+1 Best Corrected Vision Left Eye 20/25-3 Glare Testing: Right Eye High 20/70 Left Eye High 20/80 Visual Function: Ciara Martin states that the decline in vision from the cataract impedes her abilities as listed in the HPI, as well as other activities of daily living. Ciara Martin has confirmed that she is no longer able to function adequately on a day-to-day basis because of her current visual condition. Further, it is my medical opinion that the cataract is the primary cause, or at least a significantly contributory cause of her visual dysfunction. With uncomplicated cataract surgery and lens implantation, it is my expectation that her visual function and quality of life will improve, significantly. The risks, benefits, alternatives, personnel and complications of cataract surgery with lens implantation were discussed with Ciara Martin in detail. she appeared to understand and asked that I proceed with plans for surgery. Patient acknowledges possible need for glasses after procedure. Informed consent form signed by physician and patient. Literature regarding cataract and cataract extraction by phacoemulsification offered. Return for preadmission testing, biometry & intraocular lens calculations prior to surgery. The patient was offered a surgery/procedure at a [facility] facility. The surgeon/proceduralist and patient have discussed in detail the risk of exposure to and/or potential harm posed by the COVID-19 virus with having a surgery/procedure at this time versus the risk of delaying the surgery/procedure. It is not possible to know either the risk of delaying the surgery or procedure or chance of getting an infection with perfect accuracy, but a joint decision was made between the patient and the surgeon/proceduralist to proceed at this time with the scheduled surgery/procedure as indicated on the consent form. 2. 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 I have confirmed and edited as necessary the relevant ophthalmic history, ROS, and the exam findings as obtained by others. I have seen and examined Ciara Martin. I also have reviewed and agree with the assessment and plan as stated above and agree with all of its relevant components. Delmi YOUSSEF MD August 31, 2021 3:25 PM ASSESSMENT/PLAN: 1. Combined forms of age-related cataract of both eyes - ICD9: 366.19, ICD10: H25.813 Dr Delmi Youssef Cataract evaluation today 2. Vitreous degeneration, bilateral - ICD9: 379.21, ICD10: H43.813 (primary diagnosis) Monitor 3. Epiretinal membrane (ERM) of both eyes - ICD9: 362.56, ICD10: H35.373 Pt ed Has been seen by retina specialist in [place] ~2016 I have confirmed and edited as necessary the relevant ophthalmic history, ROS, and the exam findings as obtained by others. I have seen and examined this patient. I also have reviewed and agree with the assessment and plan as stated above and agree with all of its relevant components. Sunil Logan, OD August 31, 2021 2:50 PM documented in this encounter [facility] 06-22-2021 Miscellaneous Notes Patient has been rescheduled LVM to let patient know appointment was cancelled today due to and emergency with Dr. Youssef. 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 Pt declined documented in this encounter [facility] Evaluation note Diagnosis Visit for screening mammogram Other screening mammogram [facility] Diagnosis Combined forms of age-related cataract of both eyes- Primary Other and combined forms of senile cataract Epiretinal membrane (ERM) of both eyes Vitreous degeneration, bilateral [facility] Diagnosis Combined forms of age-related cataract of both eyes- Primary Other and combined forms of senile cataract Combined forms of age-related cataract of both eyes Other and combined forms of senile cataract [facility] Epiretinal membrane (ERM) of both eyes- Primary Bilateral posterior capsular opacification Unspecified after-cataract Dry eyes Unspecified tear film insufficiency Blepharitis of upper and lower eyelids of both eyes, unspecified type documented in this encounter [facility] Summary Purpose Family History No Family History Records FoundNo Family History Records FoundNo Family History Records FoundNo Family History Records Found Advance Directives No Advanced Directives Records FoundNo Advanced Directives Records FoundNo Advanced Directives Records FoundNo Advanced Directives Records Found Additional Source Comments Reason for Visit (unrecogniz ed section and content) Specialty Diagnoses / Procedures Referred By Kristen ray Referred To Contact Diagnoses Visit for screening mammogram Procedures MAMMO SCREENING WITH NAILA BILATERAL MAMMO SCREENING BILATERAL Mammography-Dima Self-Requested [address] [place] [address] Referral ID Status Reason Start Date Expiration Date V isits Requested Visits Authorized [id number] New Request 05/31/2021 06/25/2022 1 1 Reason Comments Appointment Reason Comments Cataract Evaluation OU Reason Onset Date Comments Medical Records 07/30/2023 Reason Comments Eye Exam Care Teams (unrecognized sec tion and content) Progressive Care Unit Registered Nurse Relationship Specialty Start Date End Date Crystal Santamaria MD [address] [place] [id number] PCP - General 04/10/07 Progressive Care Unit Registered Nurse Relationship Specialty Start Date End Date Crystal Santamaria MD [address] [address] PCP - General 04/10/07 Progressive Care Unit Registered Nurse Relationship Specialty Start Date End Date Unallocated, Iman Long MD [address] [place] [address] PCP - General 10/18/22 Progressive Care Unit Registered Nurse Relationship Specialty Start Date End Date Unallocated, Noms MD Mercedes [address] [place] [address] PCP - General 10/18/22 Source Comments (unrecognize d section and content) In the event this informatio n is protected by the Federal Confidentiality of Alcohol and Drug Abuse Patient Records regulations: The Federal rules restrict any use of the information to criminally investigate or prosecute any alcohol or drug abuse patient.[facility] the event this information is protected by the Federal Confidentiality of Alcohol and Drug Abuse Patient Records regulations: The Federal rules restrict any use of the information to criminally investigate or prosecute any alcohol or drug abuse patient.[facility] the event this information is protected by the Federal Confidentiality of Alcohol and Drug Abuse Patient Records regulations: The Federal rules restrict any use of the information to criminally investigate or prosecute any alcohol or drug abuse patient.[facility] INFORMATION SOURCE (unrecogn ized section and content) DATE CREATED AUTHOR 09/07/[address] [facility] DATE CREATED AUTHOR AUTHOR'S ORGANIZ ATION 05/10/2022 [facility] DATE CREATED AUTHOR AUTHOR'S ORGANIZ ATION 08/10/2022 [facility] DATE CREATED AUTHOR AUTHOR'S ORGANIZ ATION 10/18/2023 [facility] FOR RECORDS PERTAINING TO PATIENTS WHO ARE OR HAVE BEEN ENROLLED IN A CHEMICAL DEPENDENCY/SUBSTANCEABUSE PROGRAM, SOME INFORMATION MAY BE OMITTED. This clinical summary was aggregated from multiple sources. Caution should be exercised in using it in the provision of clinical care. This summary normalizes information from multiple sources, and as a consequence, information in this document may materially change the coding, format and clinical context of patient data. In addition, data may be omitted in some cases. CLINICAL DECISIONS SHOULD BE BASED ON THE PRIMARY CLINICAL RECORDS. [employer] [facility]. provides no warranty or guarantee of the accuracy or completeness of information in this document.
--- NOTE | 2024-09-11 10:25 | MM_ITS ---
Patient Name: CIARA MARTIN MR#: [id number] : 1950 Exam Date: 09/11/2024 Ordering Doctor: FRED AVELAR CNP RADIOLOGY REPORT PROCEDURE: MM TOMOSYNTHESIS SCREENING BI COMPARISON: MM TOMOSYNTHESIS SCREENING BI, 08/06/2023. MG MAMM SCREEN 3D MINDY CAD, 07/11/2022. MG MAMM SCREEN MINDY W CAD, 06/05/2021. MG MAMM SCREEN 3D MINDY CAD, 05/26/2020. INDICATIONS: Screening Calculator Name NCI Breast Cancer Risk Assessment Tool 5 Year Breast Cancer Risk 2.30% Lifetime Breast Cancer Risk 5.30% Personal Breast Cancer No Personal Ovarian Cancer No Treatments None Family Cancers Sister with thyroid cancer at age 60. LOCATION: [facility] BREAST COMPOSITION: The breasts are heterogeneously dense, which may obscure small masses. FINDINGS: DIAGNOSTIC CATEGORY 1--NEGATIVE. RIGHT BREAST: No significant suspicious finding. LEFT BREAST: No significant suspicious finding. RECOMMENDATIONS: ROUTINE MAMMOGRAM AND CLINICAL EVALUATION IN 12 MONTHS. PLEASE NOTE: A NORMAL MAMMOGRAM DOES NOT EXCLUDE THE POSSIBILITY OF BREAST CANCER. A CLINICALLY SUSPICIOUS PALPABLE LUMP SHOULD BE BIOPSIED. Dictated by: David Gold MD on 09/11/2024 at 14:34 Approved by: David Gold MD on 09/11/2024 at 14:35
== END 2024-09-11 10:02 | disposition home or self-care (01) ==
LOC: MAMMO 10:01
PROVIDERS: PCP Nurse Practitioner Family; Visit Provider Nurse Practitioner Family
DX: Z12.31 Encounter for screening mammogram for malignant neoplasm of breast (principal); Z80.8 Family history of malignant neoplasm of other organs or systems
CPT/HCPCS: 77063; 77067

== ENCOUNTER 2024-09-11 10:24 | Outpatient (OUT) | payer MEDICARE, SELFPAY ==
--- OUTSIDE RECORDS SUMMARY | 2024-09-11 10:42 | XMS_ITS | CCD ---
Author Organization [facility] Care Team Providers Care Business Division Chair Name Role Phone Crystal Santamaria MD Primary [...] Unavailable Crystal Santamaria MD Primary Care Provider [phone] SHELLY EVANS Attending Unavailable SHELLY EVANS Attending Unavailable Unallocatbon MONK, Noms Provider Primary Care Provi machelle Medications Current Medications Medication Drug Class(es) Dates Sig (Normalized) Sig (Original) [id number] 200 actuat albuterol 0.09 mg/actuat metered dose [...] Start: 07-27-2021 take 1 capsule by mo [facility] once daily FLUoxetine (PROZAC) 20 mg capsule Take 1 capsule by mouth once daily. 0 07/27/2021 Active Start: 09-08-2020 take 2 capsules by out once daily FLUoxetine 20 MG capsule TAKE 2 CAPSULES BY MOUTH EVERY DAY 180 capsule 4 09/08/2020 Active Comment on above: Take 1 capsule by mo [facility] once daily. ketorolac tromethamine 5 mg/ml ophthalmic [...] Active Start: 04-07-2021 take 1 capsule by [facility] once daily omeprazole [address] capsule TAKE 1 CAPSULE BY MOUTH EVERY DAY 90 capsule 4 04/07/2021 Active Comment on above: Take 1 capsule by mo [facility] once daily. 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 MAMMO SCREENING WITH NAILA BI LATERALon 07-11-2022 [...] The current National Comprehensive Cancer Network and [employer] guidelines recommend women undergo a screening mammogram every year over the age of 40 and continue mammographic screening as long as they are in good health. Screening mammography under age 40 may occur for women who are at increased risk for breast cancer. Table formatting from the original result was not included. MAMMO STANDARD RISK Normal [facility] BUNon 05-02-2022 Urea nitrogen [Mass/Vol] 22.0 mg/dL Critically high 7.0-18.0 [facility] Comment on above: Performed By: #### E LEC BUN, CREA #### [facility] [address] [place] [address] Dr. Ursula Castillo CREATININEon 05-02-2022 Creatinine [Mass/Vol] 0.72 mg/dL Normal 0.55-1.02 [facility] Comment on above: Performed By: #### E LEC, BUN, CREA #### [facility] [address] [place] [address] Dr. Ursula Castillo EGFR-AF PERUVIAN >60 Normal >=[address] [facility] Comment on above: Performed By: #### E LEC, BUN, CREA #### [facility] [address] [place] [address] Dr. Ursula Castillo EGFR-NON AF PERUVIAN >60 Normal >=60 [facility] Comment on above: Performed By: #### E LEC, BUN, CREA #### [facility] [address] [place] [address] Dr. Ursula Castillo ELECTROLYTESon 05-02-2022 Anion gap [Moles/Vol] 11.8 mmol/L Normal Th [facility] Comment on above: Performed By: #### E LEC, BUN, CREA #### [facility] [address] [address] [address] Ursula Castillo Chloride [Moles/Vol] 105 mmol/L Normal 98-107 [facility] Comment on above: Performed By: #### E LEC, BUN, CREA #### [facility] [address] [place] [address] Dr. Ursula Castillo CO2 [Moles/Vol] 29.8 mmol/L Normal 21.0-32.0 [facility] Comment on above: Performed By: #### E LEC, BUN, CREA #### [facility] [address] [place] [address] Dr. Ursula Castillo Potassium [Moles/Vol] 4.6 mmol/L Normal 3.5-5.1 [facility] Comment on above: Performed By: #### E LEC, BUN, CREA #### [facility] [address] [address] [address] Ursula Castillo Sodium [Moles/Vol] 142 mmol/L Normal 136-145 [facility] Comment on above: Performed By: #### E LEC, BUN, CREA #### [facility] [address] [place] [address] Dr. Ursula Castillo US PELVIC W TRANSVAGINALon [...] have reviewed and approved this report. Normal [facility] CNPNon 06-22-2021 CNPN Telephone (OPHTLN) CIARA MARTIN ([id number]) 1950 F Date Time Provider Department 06/22/21 [...] by MARIA M RUVALCABA on 06/22/21 Normal [facility] Breast - bilateral Screen ingon 06-05-2021 IMPRESSION: No mammographic evidence of malignancy. BI-RADS: 2: Benign Recommendation: Routine mammography. Recommendation Laterality: Bilateral The current National Comprehensive Cancer Network and [employer] guidelines recommend women undergo [...] The current National Comprehensive Cancer Network and [employer] guidelines recommend women undergo a screening mammogram every year over the age of 40 and continue mammographic screening as long as they are in good health. Screening mammography under age 40 may occur for women who are at increased risk for breast cancer. 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 Facility: Start: 09-26-2021 Orders Only Delmi Youssef MD Work Phone: Ophthalmology Comment on above: Combined forms of ag e-related cataract of both eyes (Primary Dx) Start: 09-14-2021 ambulatory CRYSTAL Navarro ty:[facility] Start: 08-31-2021 End: 08-31-2021 Patient encounter procedure [...] Work Phone: [facility] Comment on above: Arrived Start: 01-17-2010 Patient encounter status Crystal Santamaria MD Work Phone: [facility] Procedures Date Procedure Procedure Detail Performing Clinician Start: 10-16-2023 Computerized ophthal osmar imaging retina Shelly Evans DO Work Phone: Start: 10-16-2023 End: 10-16-2023 [facility] medical xm&eval comprhnsv estab pt 1/> Epiretinal [...] [facility] Start: 03-19-2029 Tetanus vaccination TETANUS [facility] Start: 06-14-2025 Fasting lipid profile LIPID SCREENIN G [facility] Start: 06-14-2025 Lipid panel LIPID SCREENING [facility] Start: 07-27-2024 DIABETES SCREEN [facility]ETES [facility]CREEN [facility] Start: 10-20-2023 Influenza vaccination O TAN [facility] Start: 10-16-2023 End: 10-16-2023 Patient encounter procedure 10/16/2023 1:30 PM EDT Office Visit [facility] [address] [place] [id number] Shelly Evans, DO [address] [place] [address] Arrived [facility] Comment on above: Arrived Start: 08-10-2023 Medicare Annual Well ness (AWV) Medicare Annual Wellness (AWV) [facility] Start: 08-10-2023 PREVENTATIVE HEALTH VISIT PREVENTATIVE HEALTH VISIT [facility] Start: 07-12-2023 Screening for malign ant neoplasm of breast [facility] Start: 07-12-2023 Screening for malign ant neoplasm of lung LUNG CANCER SCREENING [facility] Start: 05-26-2023 Colonoscopy COLONOSCOPY [facility] Start: 05-26-2023 Screening for malign ant neoplasm of colon COLONOSCOPY [facility] Start: 10-19-2022 COVID-19 VACCINE () COVID-19 VACCINE () [facility] Start: 08-31-2022 End: 02-22-2023 IOL BIOMETRY W/ IOL CALC OU (BOTH EYES) IOL BIOMETRY W/ IOL CALC OU (BOTH EYES) [facility] Imaging Routine Combined forms of age-related cataract of both eyes Expected: 08/31/2022, Expires: 02/22/2023 [facility] Work Phone: Comment on above: Expected: 08/31/2022 , Expires: 02/22/2023 Start: 07-27-2022 Thyroid stimulating hormone measurement TSH [facility] Start: 06-05-[address] [facility] Start: 06-05-2022 Screening mammography MAMMOGRA M SCREENING DISCUSSION [facility] Start: 10-19-2021 Influenza vaccination C [facility] Start: 07-27-2021 End: 07-27-2021 Patient encounter procedure 07/27/2021 Office Visit General Medicine Crystal Santamaria MD [address] [facility] [place] [address] Primary Care Outpatient Care Karen Junior Start: 07-04-2021 Screening for malign ant neoplasm of lung LUNG CANCER SCREENING [facility] Start: 06-14-2021 Thyroid stimulating hormone measurement TSH [facility] Start: 05-28-2021 COVID-19 VACCINE (4 - Booster for Pfizer series) COVID-19 VACCINE (4 - Booster for Pfizer series) [facility] Start: 03-18-2021 DEXA SCAN DEXA SCAN [facility] Start: 02-18-2021 ADVANCE DIRECTIVE DISCUSSION ADVANCE DIRECTIVE DISCUSSION [facility] Start: 2014 [address] BONE D[address] [facility] Start: 2014 PNEUMOCOCCAL: 65+ (1 - PCV) PNEUMOCOCCAL: 65+ (1 - PCV) [facility] Start: 2014 PNEUMOVAX AGE 65 AND OVER WITH 5YR LOOKBACK (#1) PNEUMOVAX AGE 65 AND OVER WITH 5YR LOOKBACK (#1) [facility] Start: 03-06-2013 PREVENTATIVE HEALTH VISIT PREVENTATIVE HEALTH VISIT [facility] Start: 2009 Hepatitis B vaccination HEP B VACCINE (1 of 3 - Risk 3-dose series) [facility] Start: 10-29-1999 SHINGRIX VACCINE (1 of 2) SHINGRIX VACCINE (1 of 2) [facility] Start: 1994 COLOGUARD (FIT-DNA) COLOGUARD (FIT-D NA) [facility] Start: [address] [facility] Start: 1994 COLORECTAL CANCER SCREENING COLORECTAL CANCER SCREENING [facility] Start: [address] COLONOGRAPHY [facility] Start: 1994 DIABETES SCREEN DIABETES SCREEN [facility] Start: 1994 FECAL OCCULT BLOOD FECAL OCCULT BLOO D [facility] Start: 1994 LIPID SCREEN LIPID SCREEN [facility] Start: 1994 SIGMOIDOSCOPY SIGMOIDOSCOPY [facility] Start: [address] [facility] Start: 1968 Urine microalbumin profile DTAP,TDAP,TD (1 - Tdap) [facility] Start: 10-29-1967 HEPATITIS C SCREENING HEPATITIS C SC CYNTHIA [facility] Start: 1961 Adult depression screening assessment DEPRESSION SCREENING [facility] Start: 1954 COVID-19 VACCINE (1) COVID-19 VACCIN E (1) [facility] Start: 1949 Screening for malign ant neoplasm of colon [facility] OCT MACULA CIRRUS OU (BOTH EYES) OCT MACULA CIRRUS OU (BOTH EYES) [facility] Imaging Routine Combined forms of age-related cataract of both eyes 08/31/2021 1:24 PM EDT [facility] Work Phone: [facility] Immunizations Immunization Date Immunization Notes Care Provider Fa cility 11-15-2022 influenza virus vacc ine, unspecified formulation Shelly Evans DO Work Phone: [facility] 12-08-2021 influenza virus vacc ine, unspecified formulation Tori Cruz [facility] 12-03-2020 Influenza, High-dose Seasonal, Quadrivalent, Preservative Free Tori Cruz [facility] 10-12-2019 Influenza, High-dose Seasonal, Quadrivalent, Preservative Free Crystal Santamaria MD Work Phone: [facility] 06-06-2019 zoster vaccine recombinant Crystal Santamaria MD Work Phone: [facility] 03-19-2019 tetanus toxoid, redu prachi diphtheria toxoid, and acellular pertussis vaccine, adsorbed Crystal Santamaria MD Work Phone: [facility] 03-19-2019 zoster vaccine recombinant Crystal Santamaria MD Work Phone: [facility] 11-27-2018 influenza, high dose seasonal, preservative-free Crystal Santamaria MD Work Phone: [facility] 12-18-2017 influenza, high dose seasonal, preservative-free Crystal Santamaria MD Work Phone: [facility] 12-27-2015 influenza, high dose seasonal, preservative-free Crystal Santamaria MD Work Phone: [facility] 12-27-2015 pneumococcal polysaccharide vaccine, 23 valent Crystal Santamaria MD Work Phone: [facility] 01-21-2015 influenza, high dose seasonal, preservative-free Crystal Santamaria MD Work Phone: [facility] 01-21-2015 influenza, seasonal, injectable Crystal Santamaria MD Work Phone: [facility] 01-21-2015 pneumococcal conjuga te vaccine, 13 valent Crystal Santamaria MD Work Phone: [facility] 11-20-2013 influenza, seasonal, injectable Crystal Santamaria MD Work Phone: [facility] 03-06-2012 influenza virus vacc ine, whole virus Crystal Santamaria MD Work Phone: [facility] 01-03-2010 influenza virus vacc ine, whole virus Crystal Santamaria MD Work Phone: [facility] 04-27-2008 pneumococcal polysaccharide vaccine, 23 valent Crystal Santamaria MD Work Phone: [facility] Work Phone: 12-02-2007 influenza virus vacc ine, unspecified formulation Crystal Santamaria MD Work Phone: [facility] 04-08-2007 tetanus toxoid, redu prachi diphtheria toxoid, and acellular pertussis vaccine, adsorbed Crystal Santamaria MD Work Phone: [facility] Payers Date Payer Category Payer Medicare [id number] 2021 Medicare [employer] MEDICARE A ETNA MEDICARE PPO [id number] 2021 [address] [place] [address] PPO [id number] 1959 Medicare [id number] 1950 Unknown [id number] 1950 Unknown [id number] 1950 Unknown [id number] 1950 Unknown [id number] 1950 Unknown [id number] 1950 Unknown [id number] 1950 Unknown [id number] 1950 Unknown [id number] 1950 Unknown [id number] Social History Date Type Detail Facility Start: 07-04-2020 End: 09-25-2022 Tobacco smoking status NHIS Ex-smoker [facility] Work Phone: Start: 1965 End: 02-24-2011 History of tobacco use Current smoker [facility] Start: 1965 End: 02-24-2011 History of tobacco use Cigarette Smoker [facility] Start: 07-04-2020 End: 02-25-2023 Cigarettes smoked current (pack per day) - Reported 2 [facility] Start: 07-04-2020 End: 08-31-2021 Tobacco use and exposure Smokeless tobacco non-user [facility] Start: 06-05-2021 End: 08-09-2022 Alcohol intake Current drinker of alcohol (finding) [facility] Start: 07-11-2020 History SDOH Alcohol Comment occasionally [facility] Start: 04-13-2008 Tobacco Comment for over 30 years [facility] Start: 1950 Sex Assigned At Not on file O TAN [facility] Tobacco smoking stat [facility] Tobacco smoking consumption unknown [facility] Start: 08-31-2021 Tobacco smoking stat [facility] Never smoked tobacco [facility] Start: 08-31-2021 Tobacco Comment quit 10 years ago [facility] Start: 08-09-2022 End: 02-25-2023 Tobacco use panel [facility] Adolescent depressio n screening assessment 2 [facility] Gender identity Identifies as fe male gender (finding) [facility] Medical Equipment Procedure Code Equipment Code Equipment Origin al Text Equipment Identifier Dates by Does not appl y route. Use as directed daily [id number] Start: 04-13-2008 Check once daily [id number] Start: 06-14-2020 Goals Date Patient Goal Desired [...] Findings include abnormal foveal contour, epiretinal membrane. [facility] 10-16-2023 History of Present illness Narrative Images [...] laser capsulotomy, they are to notify their catering barista promptly if they have a significant change [...] scrubs were recommended. documented in this encounter [facility] 08-01-2023 Telephone encounter Note Record request faxed to [facility] 08/01/23 [facility] 08-01-2023 Miscellaneous Notes Record request faxed to [facility] 08/01/23 Received a medical records release from [facility]. Release put in provider folder documented in this encounter [facility] 07-30-2023 Telephone encounter Note Received a medical records release from [facility]. Release put in provider folder [facility] 08-31-2021 Note HNO ID: [id number] Author: Delmi Youssef V, MD Service: ? [...] both eyes, left eye first - Aim: [place] Both eyes Guarded prognosis in the setting of Epiretinal membrane with blunted fovea contour and Macular edema Both eyes - Flomax/alpha-moises? No - Toric candidate: No - PanOptix candidate: No - Anesthesia: Topical with MAC - Contact lens use No - History of LASIK/PRK/RK No - Discussed initiate twice daily eyelid scrubs pending U/S biometry and surgery - Comanage with Dr Quintero; [facility] POD #1 Cataract Presurgical Documentation Cataract: Both [...] patient was offered a surgery/procedure at a [facility] facility. 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 Author Type: END TRIMMER Type: Progress Notes Filed: 08/31/2021 3:34 PM Note Text: ASSESSMENT/PLAN: 1. Combined forms of age-related cataract of both eyes - ICD9: 366.19, ICD10: H25.813 Dr Delmi Youssef Cataract evaluation today 2. Vitreous degeneration, bilateral - ICD9: 379.21, ICD10: H43.813 (primary diagnosis) Monitor 3. Epiretinal membrane (ERM) of both eyes - ICD9: 362.56, ICD10: H35.373 Pt ed Has been seen by retina specialist in [place] ~2016 I have confirmed and edited as necessary the relevant ophthalmic history, ROS, and the exam findings as obtained by others. I have seen and examined this patient. I also have reviewed and agree with the assessment and plan as stated above and agree with all of its relevant components. Sunil Logan, OD August 31, 2021 2:50 PM [facility] 08-31-2021 History of Present illness Narrative The documentation for this note was completed by Ana Luisa Garcia, MANDY acting as a scribe for Delmi YOUSSEF MD. 08/31/2021 3:25 PM. ASSESSMENT / PLAN: 1. Combined cataract, both eyes - Offered cataract extraction by phacoemulsification and intraocular lens implant with Dr. Youssef, both eyes, left eye first - Aim: [place] Both eyes Guarded prognosis in the setting of Epiretinal membrane with blunted fovea contour and Macular edema Both eyes - Flomax/alpha-moises? No - Toric candidate: No - PanOptix candidate: No - Anesthesia: Topical with MAC - Contact lens use No - History of LASIK/PRK/RK No - Discussed initiate twice daily eyelid scrubs pending U/S biometry and surgery - Comanage with Dr Quintero; [facility] POD #1 Cataract Presurgical Documentation Cataract: Both [...] patient was offered a surgery/procedure at a [facility] facility. The surgeon/proceduralist and patient have discussed [...] foveal contour with Macular edema Both eyes [employer] 402 um Right eye, 410 um Left [...] Has been seen by retina specialist in [place] ~2016 I have confirmed and edited as necessary the relevant ophthalmic history, ROS, and the exam findings as obtained by others. I have seen and examined this patient. I also have reviewed and agree with the assessment and plan as stated above and agree with all of its relevant components. Sunil Logan, OD August 31, 2021 2:50 PM documented in this encounter [facility] 06-22-2021 Miscellaneous Notes Patient has been rescheduled LVM to let patient know appointment was cancelled today due to and emergency with Dr. Youssef. LVM at 1:15PM 06/22/2021 documented in this encounter 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 Pt declined documented in this encounter [facility] Evaluation note Diagnosis Visit for screening mammogram Other screening mammogram documented in this encounter [facility] Diagnosis Combined forms of age-related cataract of both eyes- Primary Other and combined forms of senile cataract Epiretinal membrane (ERM) of both eyes Vitreous degeneration, bilateral [facility] Diagnosis Combined forms of age-related cataract of both eyes- Primary Other and combined forms of senile cataract Combined forms of age-related cataract of both eyes Other and combined forms of senile cataract [facility] Diagnosis Epiretinal membrane (ERM) of both [...] SCREENING BILATERAL Mammography-Dima Self-Requested [address] [place] [address] Referral ID Status Reason Start Date Expiration Date V isits Requested Visits Authorized [id number] New Request 05/31/2021 06/25/2022 1 1 Reason Comments Appointment Reason Comments Cataract Evaluation OU Reason Onset Date Comments Medical Records 07/30/2023 Reason Comments Eye Exam Care Teams (unrecognized sec tion and content) Business Division Chair Relationship Specialty Start Date End Date Crystal Santamaria MD [address] [place] [id number] PCP - General 04/10/07 Business Division Chair Relationship Specialty Start Date End Date Crystal Santamaria MD [address] [address] PCP - General 04/10/07 Business Division Chair Relationship Specialty Start Date End Date Unallocated, Iman Long MD [address] [place] [address] PCP - General 10/18/22 Business Division Chair Relationship Specialty Start Date End Date Unallocated, Noms MD Mercedes [address] [facility] [place] [address] PCP - General 10/18/22 Source Comments (unrecognize d section and content) In the event this informatio n is protected by the Federal Confidentiality of Alcohol and Drug Abuse Patient Records regulations: The Federal rules restrict any use of the information to criminally investigate or prosecute any alcohol or drug abuse patient.[facility] the event this information is protected by the Federal Confidentiality of Alcohol and Drug Abuse Patient Records regulations: The Federal rules restrict any use of the information to criminally investigate or prosecute any alcohol or drug abuse patient.[facility] the event this information is protected by the Federal Confidentiality of Alcohol and Drug Abuse Patient Records regulations: The Federal rules restrict any use of the information to criminally investigate or prosecute any alcohol or drug abuse patient.[facility] INFORMATION SOURCE (unrecogn ized section and content) DATE CREATED AUTHOR 09/07/2021 [facility] DATE CREATED AUTHOR AUTHOR'S ORGANIZ ATION 05/10/2022 [facility] DATE CREATED AUTHOR AUTHOR'S ORGANIZ ATION 08/10/2022 [facility] DATE CREATED AUTHOR AUTHOR'S ORGANIZ ATION 10/18/2023 [facility] dicnd Specialists [facility] FOR RECORDS PERTAINING TO PATIENTS WHO ARE [...] BE BASED ON THE PRIMARY CLINICAL RECORDS. [employer] [facility]. provides no warranty or guarantee of the accuracy or completeness of information in this document.
[2024-09-11 11:22] LABS: Alanine Aminotransferase 23 U/L (14-59); Albumin Globulin Ratio 0.9; Albumin Level 3.6 g/dL (3.4-5.0); Alkaline Phosphatase 86 U/L (46-116); Anion Gap 12.6; Aspartate Amino Transferase 19 U/L (15-37); Blood Urea Nitrogen 19.0 mg/dL (7.0-18.0); Calcium 9.0 mg/dL (8.5-10.1); Carbon Dioxide 27.6 mmol/L (21.0-32.0); Chloride 105 mmol/L (98-107); Cholesterol 138 mg/dL (<=200); Estimated GFR (African America >60 (>=60 mL/min/1.73m^2); Estimated GFR (Non-African Ame >60 (>=60 mL/min/1.73m^2); Free T3 1.72 pg/mL (2.18-3.98); Globulin 3.8 g/dL; Glucose 105 mg/dL (74-106); HDL Cholesterol 59 mg/dL (40-60); Potassium 4.2 mmol/L (3.5-5.1); Sodium 141 mmol/L (136-145); Thyroid Stimulating Hormone 2.761 uIU/mL (0.358-3.740); Total Protein 7.4 g/dL (6.4-8.2); Triglycerides 110 mg/dL (<=150); VLDL CHOLESTEROL 22.0 mg/dL
[2024-09-11 11:24] LABS: Hematocrit 43.1 % (36.0-48.0); Hemoglobin 13.8 g/dL (12.0-16.0); Immature Granulocytes Abs Auto 0.01 10^3/uL (0.00-0.03); Immature Granulocytes Pct Auto 0.1 % (0.0-0.5); Lymphocytes Absolute Auto 1.6 10^3/uL (1.2-3.8); Mean Corpuscular HGB Conc 32.0 g/dL (29.9-35.2); Mean Corpuscular Hemoglobin 29.0 pg (26.7-34.0); Mean Corpuscular Volume 90.5 fL (81.0-99.0); Platelet Count 283 10^3/uL (150-450); Red Blood Count 4.76 10^6/uL (4.20-5.40); White Blood Count 7.4 10^3/uL (4.0-11.0)
[2024-09-11 12:15] LABS: Iron 124.0 ug/dL (50.0-170.0)
== END 2024-09-11 10:25 | disposition home or self-care (01) ==
LOC: LAB 10:24
PROVIDERS: PCP Nurse Practitioner Family; Visit Provider Nurse Practitioner Family
DX: E78.5 Hyperlipidemia, unspecified (principal); M19.90 Unspecified osteoarthritis, unspecified site; R73.09 Other abnormal glucose; D64.9 Anemia, unspecified; E03.9 Hypothyroidism, unspecified; E55.9 Vitamin D deficiency, unspecified; I10 Essential (primary) hypertension; R53.83 Other fatigue
CPT/HCPCS: 36415; 80053; 80061; 82306; 83036; 83525; 83540; 84436; 84443; 84481; 85025

== ENCOUNTER 2025-01-07 08:40 | Outpatient (OUT) | payer MEDICARE, SELFPAY ==
--- OUTSIDE RECORDS SUMMARY | 2025-01-07 08:46 | XMS_ITS | CCD ---
Author Organization [facility] CliniSyca Care Team Providers Care Php Architect Name Role Phone Crystal Santamaria MD Primary Care Provider Unavailable Primary Care Provider Unavailabl e MISC, DR BLAKELY Attending Unavailable MISC, DOCTOR Consulting Unavailable MISC, DR BLAKELY Primary Care Unavailable MISC, DR BLAKELY Admitting Unavailable CRYSTAL SANTAMARIA Primary Care Unavailable CRYSTAL SANTAMARIA Attending Unavailable CRYSTAL SANTAMARIA Referring Unavailable CRYSTAL SANTAMARIA Primary Care Unavailable CRYSTAL SANTAMARIA Primary Care Unavailable CRYSTAL SNATAMARIA Attending Unavailable CRYSTAL SANTAMARIA Referring Unavailable CRYSTAL SANTAMARIA Primary Care Unavailable CRYSTAL SANTAMARIA Attending Unavailable CRYSTAL SANTAMARIA Referring Unavailable CRYSTAL SANTAMARIA Primary Care Unavailable MAMMOGRAPHY-DIMA, SELF-REQUESTED Referring Unavailable CRYSTAL SANTAMARIA Attending Unavailable CRYSTAL SANTAMARIA Primary Care Unavailable ROSI COFFEY Attending Unavailable ROSI COFFEY Referring Unavailable Crystal Santamaria MD Primary Care Provider [phone] Unallocated , Noms Provider Primary Care Provi machelle Unallocated , Noms Provider Primary Care Provi machelle SHELLY EVANS Attending Unavailable Medications Current Medications MedicationDrug Class(es)DatesSig (Normalized)Sig (Original)[id number] 200 actuat albuterol 0.09 mg/actuat metered dose inhaler (2 sources)beta2-Adrenergic AgonistStart: 99-60-9271thpi 1 puff(s) by inhalation every six hours as needed for wheezingalbuterol (PROAIR HFA) 108 (90 BASE) MCG/ACT Aero Soln Indications: Upper respiratory tract infection, unspecified type take 1 puff by inhalation every 6 hours as needed for Wheezing. 1 Inhaler 07/25/2015 ActiveamLODIPine 5 mg oral tablet (5 sources)Dihydropyridine Calcium Channel BlockerStart: 20-58-4945xyeo 1 tablet by mouth in the morningamLODIPine (Norvasc) 5 MG tablet Take 5 mg by mouth in the morning. 04/27/2022 Activebenoxinate hydrochloride 4 mg/ml / fluorescein sodium 2.5 mg/ml ophthalmic solution (1 source)Diagnostic DyeStart: 08-31-2021 End: 72-71-4088updjnkzgtwq-benoxinate 0.25-0.4 % 1 Drop (FLURESS)cholecalciferol 0.025 mg oral tablet (4 sources)Vitamin Dtake 2 tablets by mouth once dailyCholecalciferol (VITAMIN D) 1000 UNITS Tab Take 2 tablets by mouth daily. ActiveComment on above:Take 2,000 Units by mouth once daily.FLUoxetine 20 mg oral capsule (4 sources)Serotonin Reuptake InhibitorStart: 32-12-0256qkte 1 capsule by mouth once dailyFLUoxetine 20 MG capsule Take 1 capsule by mouth daily. 90 capsule 3 08/09/2022 ActiveStart: 62-29-5030gdvl 1 capsule by mouth once dailyFLUoxetine (PROZAC) 20 mg capsule Take 1 capsule by mouth once daily. 0 07/27/2021 Active Start: 58-26-4368yhyq 2 capsules by mouth once dailyFLUoxetine 20 MG capsule TAKE 2 CAPSULES BY MOUTH EVERY DAY 180 capsule 4 09/08/2020 ActiveComment on above:Take 1 capsule by mouth once daily.ketorolac tromethamine 5 mg/ml ophthalmic solution (4 sources)Nonsteroidal Anti-inflammatory Drug, Cyclooxygenase InhibitorStart: 74-96-6137uybajzqah (Acular) 0.5 % ophthalmic solution Indications: Age-related nuclear cataract of both eyesAdminister 1 drop into both eyes in the morning and 1 drop at noon and 1 drop in the evening and 1 drop before bedtime. 5 mL 1 09/28/2022 Activelevothyroxine sodium 0.075 mg oral tablet (8 sources)l-ThyroxineStart: 48-22-8122xzpm 1 tablet by mouth in the morning levothyroxine (Synthroid, Levoxyl) 75 MCG tablet Take 1 tablet by mouth in the morning. 07/26/2022 ActiveStart: 65-16-0457glje 1 tablet by mouth once daily levothyroxine (SYNTHROID) 75 mcg tablet Take 75 mcg by mouth once daily. 0 07/24/2021 ActiveStart: 04-40-0893cuxi 1 tablet by mouth once dailylevothyroxine 75 MCG tablet TAKE 1 TABLET BY MOUTH EVERY DAY 90 tablet 4 06/23/2020 Active Comment on above:Take 75 mcg by mouth once daily.losartan potassium 50 mg oral tablet (8 sources)Angiotensin 2 Receptor BlockerStart: 98-56-9686leqp 1 tablet by mouth in the morninglosartan (Cozaar) 50 MG tablet Take 50 mg by mouth in the morning. 04/27/2022 ActiveStart: 18-52-6137brhf 1 tablet by mouth once dailylosartan (COZAAR) 25 mg tablet Take 1 tablet by mouth once daily. 0 07/06/2021 Active Start: 20-72-5970wygz 1 tablet by mouth once dailylosartan 25 MG tablet TAKE 1 TABLET BY MOUTH EVERY DAY 90 tablet 4 06/08/2020 ActiveComment on above:Take 1 tablet by mouth once daily.Multiple Vitamins-Minerals (Hair Skin Nails) capsule (2 sources)Multiple Vitamins-Minerals (Hair Skin Nails) capsule Take by mouth. ActiveMultiple Vitamins-Minerals (Hair Skin Nails) capsule Take by mouth. 0 Activenystatin 100 unt/mg topical powder (4 sources)Polyene AntifungalStart: 28-98-9542gydpbqvp 519413 UNIT/GM Powder powder Indications: Veronica infection of flexural skin Apply 1 Application topically 3 times daily. 45 g 08/31/2020 ActiveStart: 00-32-4066jwgmptia (MYCOSTATIN) powder Apply 1 application to affected area as needed. 0 08/31/2020 ActiveComment on above:Apply 1 application to affected area as needed.omeprazole 40 mg delayed release oral capsule (8 sources)Proton Pump InhibitorStart: 90-50-7619sxvi 1 capsule by mouth once dailyomeprazole [address] capsule TAKE 1 CAPSULE BY MOUTH EVERY DAY 90 capsule 4 06/11/2022 ActiveStart: 22-25-3487gmfh 1 capsule by mouth once daily omeprazole [address] capsule TAKE 1 CAPSULE BY MOUTH EVERY DAY 90 capsule 4 04/07/2021 ActiveComment on above:Take 1 capsule by mouth once daily. phenylephrine hydrochloride 25 mg/ml ophthalmic solution (1 source)alpha-1 Adrenergic AgonistStart: 08-31-2021 End: 28-15-9021CWAPJNrrjvifj 2.5 % 1 Drop (AK-DILATE, ARPAN-SYNEPHRINE) proparacaine hydrochloride 5 mg/ml ophthalmic solution (1 source)Local AnestheticStart: 08-31-2021 End: 00-14-1717wjxknuazwtyn 0.5 % 1 Drop (ALCAINE)simvastatin 20 mg oral tablet (8 sources)HMG-CoA Reductase InhibitorStart: 73-64-4244aubg 1 tablet by mouth once daily in the eveningsimvastatin 20 MG tablet TAKE 1 TABLET BY MOUTH EVERY DAY IN THE EVENING AT 6PM 90 tablet 4 07/26/2022 ActiveComment on above:Take 20 mg by mouth once daily.tropicamide 10 mg/ml ophthalmic solution (1 source)AnticholinergicStart: 08-31-2021 End: 92-92-8317jpcwppralyq 1 % 1 Drop (MYDRIACYL) Completed/Discontinued Medications MedicationDrug Class(es)DatesSig (Normalized)Sig (Original)Biotin (2 sources)BIOTIN ORAL Take by mouth once daily. 0 ActiveComment on above:Take by mouth once daily.gabapentin 100 mg oral capsule (3 sources)Anti-epileptic AgentStart: 04-07-2021 End: 66-62-1154iyebcauysc (NEURONTIN) 100 mg capsule 1 capsule once daily. 0 07/16/2021 ActiveComment on above:1 capsule once daily. Problems Active Problems Problem ClassificationProblemDateDocumented DateEpisodic/ChronicCataract (20 sources)Bilateral senile combined form cataracts of eyes; Translations: [Combined forms of age-related cataract, bilateral]Onset: 09-25-2022 Resolved: 62-18-1114SbsmasvInqedms obstructive pulmonary disease and bronchiectasis (4 sources)Chronic bronchitis; Translations: [Unspecified chronic bronchitis] 03-08-0153SylfemkPxpqndtfc of lipid metabolism (2 sources)Hyperlipidemia; Translations: [Hyperlipidemia, unspecified]04-23-2021 ChronicEsophageal disorders (2 sources)Gastro-esophageal reflux disease with esophagitis; Translations: [Reflux esophagitis]95-85-6831RjmswvkZbsuwwokq hypertension (4 sources)Benign essential hypertension; Translations: [Essential (primary) hypertension]Onset: 607168-56-3522MdjuakwNdscltgewhcu; infection of eye (except that caused by tuberculosis or sexually transmitteddisease) (6 sources)Blepharitis of upper and lower eyelids of bilateral eyes; Translations: [Unspecified blepharitis right eye, upper and lower eyelids]Onset: 455096-98-8976ZjeiouprGkpb disorders (2 sources)Depressive disorder; Translations: [Other specified depressive episodes]67-79-2509RxdajuqMqokg aftercare (4 sources)Other penitentiary (current) drug therapy; Translations: [OTH DESKTOP MANAGER CURRENT DRUG THERAPY]Onset: 17-11-3510BetxcdvdRbxhs diseases of kidney and ureters (2 sources)Cyst of kidney; Translations: [Cyst of kidney, acquired]01-17-2010 EpisodicOther ear and sense organ disorders (2 sources)Sensorineural hearing loss; Translations: [Unspecified sensorineural hearing loss]Onset: 143350-56-6180ZwautxrRierm eye disorders (1 source)Bilateral vitreous degeneration of eyes; Translations: [Vitreous degeneration, bilateral]ChronicOther eye disorders (6 sources)Dry eyes; Translations: [Dry eye syndrome of bilateral lacrimal glands]Onset: 314585-46-3959UyswpuooMhpsm nutritional; endocrine; and metabolic disorders (2 sources)Body mass index 30+ - obesity; Translations: [Obesity, unspecified] Onset: 519375-79-7875OzxeitlIizqmdqedb and visceral atherosclerosis (2 sources)Arteriosclerotic vascular disease; Translations: [Unspecified atherosclerosis]30-15-9680IzdlgafBmevngjh codes; unclassified (2 sources)Hypersomnia; Translations: [Hypersomnia, unspecified]Onset: 765854-00-9753KtysoegUpvbuwjg codes; unclassified (2 sources)Obstructive sleep apnea syndrome; Translations: [Obstructive sleep apnea (adult) (pediatric)]Onset: 999527-53-2455ApwxwhaVmghliau codes; unclassified (2 sources)Periodic limb movement disorder; Translations: [Periodic limb movement disorder]Onset: 528763-44-0204JtkrkvcFjpybzn detachments; defects; vascular occlusion; and retinopathy (7 sources)Bilateral epiretinal membrane of eyes; Translations: [Puckering of macula, bilateral]Onset: 19-70-9843BtgdavqDpyjcamvg and history of mental health and substance abuse codes (2 sources)Personal history of nicotine dependence; Translations: [Personal history of nicotine dependence]Onset: 71-92-3046LseapgeuMpxofxsucyy; intervertebral disc disorders; other back problems (2 sources)Degeneration of cervical intervertebral disc; Translations: [Other cervical disc degeneration, unspecified cervical region]Onset: 11-09-2016 63-15-7526PicnnvkTicpfrk disorders (2 sources)Hypothyroidism, unspecified; Translations: [Hypothyroidism, unspecified]Onset: 68-76-4749Blizuap Past or Other Problems Problem ClassificationProblemDateDocumented DateEpisodic/ChronicDiabetes mellitus without complication (6 sources)Prediabetes; Translations: [Prediabetes]Onset: 11-20-2013 Resolved: 427099-21-9482HxvvkpwcIlqz disorders (2 sources)Mood disordersOnset: 06-14-2020 Resolved: Other and unspecified benign neoplasm (2 sources)Adenomatous polyp of colon ; Translations: [Benign neoplasm of colon, unspecified]Onset: 662606-72-4531VtxxgivbMbqoe and unspecified benign neoplasm (2 sources)Gastric polyp; Translations: [Polyp of stomach and duodenum]Onset: 912897-69-9428WqgbfwguPdina gastrointestinal disorders (2 sources)Dysphagia; Translations: [Dysphagia, unspecified]Onset: 06-27-2020 09-41-3888QemszzpaXadpb lower respiratory disease (2 sources)Snoring; Translations: [Snoring]Onset: 193695-18-5011Ywikdncd Other lower respiratory disease (2 sources)Multiple nodules of lung; Translations: [Other nonspecific abnormal finding of lung field]Onset: 769198-85-6378VgobgabpDjmqo screening for suspected conditions (not mental disorders or infectious disease) (11 sources)Patient encounter status; Translations: [Encounter for screening mammogram for malignant neoplasm of breast]Onset: 51-63-2640KorroamnOeacttpbj- related disorders (2 sources)Tobacco user; Translations: [Nicotine dependence, unspecified, uncomplicated] Resolved: 959459-64-6367Zoxpiqf Results Test NameValueInterpretationReference RangeFacilityOptical coherence tomography study reporton 66-40-4711VODCBarnes-[facility] HealthcareRadiology Study observation (narrative)[facility] HealthcareOptical coherence tomography study report on 58-57-5323VJGGBarnes-Jewish Saint [facility] HealthcareRadiology Study observation (narrative)[facility] HealthcareCT LUNG CANCER SCREENINGon 47-07-3563RW LUNG CANCER SCREENINGLOW-DOSE CT LUNG SCREENING EXAM: CT LUNG CANCER [...] annual screening with LDCT in 12 months [facility] HospitalMAMMO SCREENING WITH NAILA BILATERALon 72-03-2758ECYNW SCREENING WITH NAILA BILATERALEXAM: MAMMO SCREENING WITH NAILA BILATERAL, 07/11/2022 15:59 [...] The current National Comprehensive Cancer Network and [employer] guidelines recommend women undergo a screening mammogram every year over the age of 40 and continue mammographic screening as long as they are in good health. Screening mammography under age 40 may occur for women who are at increased risk for breast cancer. Table formatting from the original result was not included. MAMMO STANDARD RISKNormOhioHealth Grant Medical CenterBUNon 37-64-9687Gzcr nitrogen [Mass/Vol]22.0 mg/dLCritically high7.0-18.0The [facility] HospitalComment on above:Performed By: #### DEVI JUSTIN CREA #### [facility] [address] [place] [address] Dr. Ursula Sun 99-51-7671Wjmbudkovu [Mass/Vol]0.72 mg/dLNormal 0.55-1.02The [facility] HospitalComment on above:Performed By: #### NHAN BUN, CREA #### [facility] [address] [address] [address] Ursula BruceGFR-AF BAHAMIAN>60Normal>=60The [facility] HospitalComment on above:Performed By: #### ELEC, BUN, CREA #### [facility] [address] [address] [address] Ursula BruceGFR-NON AF BAHAMIAN>60Normal>=60The [facility] HospitalComment on above:Performed By: #### ELEC, BUN, CREA #### [facility] [address] [address] [address] Ursula BruceLECTROLYTESon 87-28-2657Kmzbz gap [Moles/Vol]11.8 mmol/LNormal The [facility] HospitalComment on above:Performed By: #### ELEC, BUN, CREA #### [facility] [address] [place] [address] Dr. Ursula CastilloChloride [Moles/Vol]105 mmol/DFvplvm57-175Wzq [facility] Comment on above:Performed By: #### ELEC, BUN, CREA #### [facility] [address] [address] [address] Ursula CastilloCO2 [Moles/Vol]29.8 mmol/YVbdrzb46.0-32.0[facility] Comment on above:Performed By: #### ELEC, BUN, CREA #### [facility] [address] [address] [address] Ursula CastilloPotassium [Moles/Vol]4.6 mmol/LNormal3.5-5.1The [facility] Comment on above:Performed By: #### ELEC, BUN, CREA #### [facility] [address] [address] [address] Ursula CastilloSodium [Moles/Vol]142 mmol/RRdsjhi846-182[facility]kkGen[facility] Comment on above:Performed By: #### ELEC, BUN, CREA #### [facility] [address] [address] [address] Ursula CastilloUS PELVIC W TRANSVAGINALon 07-80-2466UO PELVIC W TRANSVAGINAL EXAM: US PELVIC W [...] I have reviewed and approved this report. NBarberton Citizens HospitalCNPNon 77-52-4246ZKECYczpifrta (OPHTLN) CIARA MARTIN ([id number]) 1950 F Date Time Provider Department 06/22/21 DELMI YOUSSEF During your visit today, we recorded the following information about you: Maria M Ruvalcaba 06/22/2021 1:15 PM Signed LVM to let patient know appointment was cancelled today due to and emergency with Dr. Domonique. LVM at 1:15PM 06/22/2021 Maria M Ruvalcaba 06/22/2021 2:17 PM Signed Patient has been rescheduled Allergies As of Date: 06/22/2021 (Not on File) Date Reviewed: Never Reviewed Reason for Visit: Appointment [186] Problem List As Of Date: 06/22/2021 (None) Encounter Status:Closed by MARIA M RUVALCABA on [facility]/21[facility] Breast - bilateral Screeningon 55-41-7202IHWHPYGKBU: No mammographic evidence of malignancy. BI-RADS: 2: Benign Recommendation: Routine mammography. Recommendation Laterality: Bilateral The current National Comprehensive Cancer Network and [employer] guidelines recommend women undergo a screening mammogram every year over the age of 40 and continue mammographic screening as long as they are in good health. Screening mammography under age 40 may occur for women who are at increased risk for breast cancer. RADIOLOGYEXAM: MAMMO SCREENING WITH ANILA BILATERAL, 06/05/2021 13:30 PM CLINICAL INDICATIONS: Screening [...] no suspicious masses, calcifications, or architectural distortions. RADIOLOGYLoli Watts DO - 06/05/2021 EXAM: MAMMO SCREENING [...] The current National Comprehensive Cancer Network and [employer] guidelines recommend women undergo a screening mammogram every year over the age of 40 and continue mammographic screening as long as they are in good health. Screening mammography under age 40 may occur for women who are at increased risk for breast cancer. [facility] HospitalRadiology Study observation (narrative)[facility] HospitalMG Breast - bilateral ScreeningOrdered By: Loli Watts on 69-51-5384HTHWooster Community Hospital Work Phone: Encounters Encounter DateEncounter TypeCare ProviderFacilityStart: 10-16-2024 End: 18-57-3597Jcturs flowsDom Evans DO Work Phone: [facility] EyeStart: 10-16-2024 End: 10-35-3882Mlrbvj flowsheetJonathan Magda Zahler DO Work Phone: noms [facility] EyeStart: 10-16-2024 End: 16-65-1009bqvpkqmorkIVVSXHFH D ZAHLERNot AvailableStart: 10-16-2023 End: 86-20-7753Vcczny flowsheetJonathan Magda Zahler DO Work Phone: noms OPHTStart: 10-16-2023 End: 22-49-3955Uhgout flowsheetJonathan Magda Elenahler DO Work Phone: noms NB OPHTStart: 07-30-2023 End: 33-99-2965Bgqmdmksk encounterPatricia BrownCentral SchedulingComment on above:Medical RecordsStart: 14-53-5117fwdotudvlvBIRHNCW G KREGER Facility:[facility]tart: 00-21-4128dtiuwpfxoqCWESMSR G KREGER Facility:[facility]ENTERtart: 94-94-6175fxsukmxoglZDZUTYT G KREGER Facility:[facility]ENTERtart: 05-02-2022 End: 36-26-8985juqqqshvxdMU DOCTOR MISCFacility:U3Cieji: 97-31-6853Wbwnnh Only Delmi Youssef MD Work Phone: OphthalmologyComment on above:Combined forms of age- related cataract of both eyes (Primary Dx)Start: 57-23-9281zlgozlujcwULTWNZW G KREGERFacility:[facility]ITALStart: 08-31-2021 End: 87-27-7583Jxieupr encounter procedureDelmi Youssef MD Work Phone: OphthalmologyComment on above:Combined forms of age- related cataract of both eyes (Primary Dx); Epiretinal membrane (ERM) of both eyes; Vitreous degeneration, bilateralStart: 33-06-9828Tjjhxbfga encounterAiyisel Youssef MD Work Phone: OphthalmologyComment on above:AppointmentStart: 06-05-2021 End: 15-36-0374Bymlcgmfsv hospital visit by physicianCrystal Santamaria MD Work Phone: Imaging and Mammography Outpatient Care Duck HillComment on above:ArrivedStart: 50-35-0894Nqjmokf encounter status Crystal Santamaria MD Work Phone: [facility] Procedures DateProcedureProcedure DetailPerforming ClinicianStart: 27-52-5008Idzwnziuruoi ophthalmic imaging retinaShelly Evans DO Work Phone: Start: 10-16-2024 End: 01-92-2010Gzezu medical xm&eval comprhnsv estab pt 1/>Epiretinal membrane (ERM) of both eyesShelly Evans DO Work Phone: comment on above:Epiretinal membrane (ERM) of both eyes (Primary Dx); Dry eyes; Blepharitis of upper and lower eyelids of both eyes, unspecified type; Bilateral posterior capsular opacificationStart: 03-32-4982Ltohfnrudiam ophthalmic imaging Hermelinda Evans DO Work Phone: Start: 10-16-2023 End: 09-44-4512Uluiw medical xm&eval comprhnsv estab pt 1/>Epiretinal membrane (ERM) of both eyesShelly Evans DO Work Phone: comment on above:Epiretinal membrane (ERM) of both eyes (Primary Dx); Bilateral posterior capsular opacification; Dry eyes; Blepharitis of upper and lower eyelids of both eyes, unspecified typeStart: 64-30-0386EmvtqcvludfWnliwieg Zahler DO Work Phone: Start: 06-05-2021 End: 48-54-4197Owyzfwtig mammography bi 2-view breast inc cadSelf-Requested Mammography-Dima Work Phone: Start: 74-03-5462Hptav 1996 panel - Serum or Plasma Crystal Santamaria MD Work Phone: Start: 81-60-8252EynknrrkfdyWsgogra Kreger MD Work Phone: Plan of Treatment DateCare ActivityDetailAuthorStart: 24-06-4622Qpgtcicpq for malignant neoplasm of colonNOVT HealthcareStart: 34-07-3656Wklrtvw vaccinationTETANUSOSPomerene Hospital CenterStart: 39-89-5920Xcuvvpp lipid profileLIPID SCREENINGOSU [facility] CenterStart: 38-14-7916Suinm panelLIPID SCREENINGOSU [facility] CenterStart: 12-57-8663Rizbifdiw vaccinationInfluenza Vaccine (#1)[facility] HealthcareStart: 10-16-2024 End: 96-43-2484Lijgjzr encounter /29/2025 10:30 AM EDT Office Visit [facility] [address] [place] [address] Shelly Evans, DO [address] [place] [address] ArrivedNOBolivar Medical Center EyeComment on above:ArrivedStart: 97-23-1552JOCVHHYW SCREENDIABETES SCREENKeenan Private Hospital Start: 09-10-4806Fasfxrlrm vaccinationOSU [facility] CenterStart: 10-16-2023 End: 41-26-6905Hydzlzg encounter qxucmpiak98/28/2024 1:30 PM EDT Office Visit [facility] [address] [place] [id number] Shelly Evans, [address] [place] [address] ArrivedNOMS OPHTComment on above:ArrivedStart: 06-22-2024Medicare Annual Wellness (AWV)Medicare Annual Wellness (AWV)[facility] HealthcareStart: 90-23-3159TGMRPGXYFKAR HEALTH VISITPREVENTATIVE HEALTH VISITOSEast [facility] Hospitaltart: 01-86-3087Eiarkkqfw for malignant neoplasm of breastOSU [facility] Hospitaltart: 95-07-2912Bykbqfygv for malignant neoplasm of lungLUNG CANCER SCREENINGOSU [facility] Hospitaltart: 05-26-2023 ColonoscopyCOLONOSCOPYCleveland Clinic Euclid Hospitaltart: 70-95-4620Ujhbyjivn for malignant neoplasm of colonCOLONOSCOPYCleveland Clinic Euclid Hospitaltart: 10-19-2022 COVID-19 VACCINE ( season)COVID-19 VACCINE ()[facility] Hospitaltart: 08-31-2022 End: 52-75-1552VQH BIOMETRY W/ IOL CALC OU (BOTH EYES)IOL BIOMETRY W/ IOL CALC OU (BOTH EYES) OPHT Imaging Routine Combined forms of age-related cataractof both eyes Expected: 08/31/2022, Expires: 02/22/2023[facility] Work Phone: Comment on above:Expected: 08/31/2022, Expires: 02/22/2023Start: 74-52-9887Ohpsxxx stimulating hormone measurementTSOhioHealth Grant Medical Centertart: 45-78-9184YmejhjxmhxdTJPISPLMPHqcnvphpe ClinicStart: 64-44-1388Jchazibkg mammographyMAMMOGRAM SCREENING DISCUSSIONOSEast [facility] Hospitaltart: 73-05-2007Arwungxhf vaccinationLutheran Hospitaltart: 07-27-2021 End: 42-74-8823Tfibdjy encounter kgffkoqmx73/09/2022 Office Visit General Medicine Crystal Santamaria MD [address] [place] [address] [facility] HospitalStart: 12-52-6067Eqitygysh for malignant neoplasm of lungLUNG CANCER SCREENINGOSEast [facility] Hospitaltart: 75-20-3194Jlmceiz stimulating hormone measurementTSHOOhioHealth Grove City Methodist Hospitaltart: 16-64-3435TCZUB-19 VACCINE (4 - Booster for Pfizer series)COVID-19 VACCINE (4 - Booster for Pfizer series) [facility] Hospitaltart: 94-35-6412QWCJ SCANDEXA SCANOhioHealth Van [facility]ert Hospital Start: 50-68-8126CRHRGSX DIRECTIVE DISCUSSIONADVANCE DIRECTIVE DISCUSSION [facility] Hospitaltart: 84-95-9562ZUFP DENSITYBONE DENSITYLutheran Hospitaltart: 21-92-4938TTKLFTSKEIFV: 65+ (1 - PCV)PNEUMOCOCCAL: 65+ (1 - PCV)[facility] Start: 46-92-8225XGIZRXBLS AGE 65 AND OVER WITH 5YR LOOKBACK (#1)PNEUMOVAX AGE 65 AND OVER WITH 5YR LOOKBACK (#1)[facility] Hospitaltart: 48-95-4111XXDRKPESNKND HEALTH VISITPREVENTATIVE HEALTH VISITOSEast [facility] Hospitaltart: 2009 Hepatitis B vaccinationHEP B VACCINE (1 of 3 - Risk 3-dose series)[facility] Hospitaltart: 59-83-7615PGAEEBCE VACCINE (1 of 2)SHINGRIX VACCINE (1 of 2)[facility] Hospitaltart: 04-03-1716CMGWJNDAV (FIT-DNA)COLOGUARD (FIT-DNA) [facility] Hospitaltart: 62-54-5866VcxkajeutplZUMLSOWUHRYVndajdapk ClinicStart: 45-83-4000BJGGXRXTPY CANCER SCREENINGCOLORECTAL CANCER SCREENINGKeenan Private Hospital Start: 07-52-1111ZK COLONOGRAPHYCT COLONOGRAPHYLutheran Hospitaltart: 1994 DIABETES SCREENDIABETES SCREENLutheran Hospitaltart: 35-31-6437NGXIA OCCULT BLOODFECAL OCCULT BLOODLutheran Hospitaltart: 82-40-3042BFZQO SCREENLIPID SCREEN [facility]: 40-16-6702TOSPEWVLHCRMJLRKHVVVGZKXCXKwtrguhmr Clinic Start: 69-02-4274HsmibihpyclXFAUJIGVQGywmvfjdg ClinicStart: 75-08-3701Xwdcz microalbumin profileDTAP,TDAP,TD (1 - Tdap)[facility] 10-29-1968 HEPATITIS C SCREENINGHEPATITIS C SCREENINGLutheran Hospitaltart: 41-48-6993Xtjcv depression screening assessmentDEPRESSION SCREENINGLutheran Hospitaltart: 18-49-0230PSLDT-19 VACCINE (1)COVID-19 VACCINE (1)[facility]: 91-71-6546Pkqqyhfkj for malignant neoplasm of colonNOVT HealthcareOCT MACULA CIRRUS OU (BOTH EYES)OCT MACULA CIRRUS OU (BOTH EYES) OPHT Imaging Routine Combined forms of age-related cataract of both eyes 08/31/2021 1:24 PM EDT [facility] Work Phone: [facility] Immunizations Immunization DateImmunizationNotesCare HuibqtipWycdowoy11-86-6289uoaaazbfv virus vaccine, unspecified formulationJosabi Evans DO Work Phone: [facility] HospitalQfmohmseli35-09-1443vrqyrjnyp virus vaccine, unspecified formulationJonathan Zahler DO Work Phone: [facility] HospitalQbizoyplow97-77-2784ghpmotjvy virus vaccine, unspecified formulationDeaconess Hospital Union Countyroxie [facility]10-16-2021 Influenza, High-dose Seasonal, Quadrivalent, Preservative FreeTori [facility]08-24-2020Influenza, High-dose Seasonal, Quadrivalent, Preservative Pramod Santamaria MD Work Phone: [phone] [place], [place] 3047704-18-2020zoster vaccine recombinantCrystal Santamaria MD Work Phone: [phone] [place], [place] 3810901-30-2020tetanus toxoid, reduced diphtheria toxoid, and acellular pertussis vaccine, adsorbedCynoel Santamraia MD Work Phone: [phone]01-30-2020zoster vaccine recombinantCrystal Santamaria MD Work Phone: [phone] [place], [place] 38[address]10-10-2019influenza, high dose seasonal, preservative-freeCrystal Santamaria MD Work Phone: [phone] [place], [place] 38[address]10-31-2018influenza, high dose seasonal, preservative-freeCrystal Santamaria MD Work Phone: [phone] [place], [place] 38[address]11-08-2016influenza, high dose seasonal, preservative-freeCrystal Santamaria MD Work Phone: [phone] [place], [place] 38[address]11-08-2016pneumococcal polysaccharide vaccine, 23 valentCrystal Santamaria MD Work Phone: [phone]12-04-2015influenza, high dose seasonal, preservative-freeCrystal Santamaria MD Work Phone: [phone] [place], [place] 3047712-04-2015influenza, seasonal, injectableCrystal Santamaria MD Work Phone: [phone]12-04-2015pneumococcal conjugate vaccine, 13 valentCrystal Santamaria MD Work Phone: [phone]10-03-2014influenza, seasonal, injectableCrystal Santamaria MD Work Phone: [phone]01-17-2013influenza virus vaccine, whole virusCrystal Santamaria MD Work Phone: [facility] HospitalUzwago79-27-3167kokexmcvu virus vaccine, whole virusCrystal Santamaria MD Work Phone: [facility] HospitalWhfbxe62-03-1199xjpviyzdanov polysaccharide vaccine, 23 valentCrystal Santamaria MD Work Phone: [phone] Work Phone: [phone] virus vaccine, unspecified formulationCrystal Santamaria MD Work Phone: [phone]02-19-2008tetanus toxoid, reduced diphtheria toxoid, and acellular pertussis vaccine, adsorbedCrystal Santamaria MD Work Phone: [facility] Payers DatePayer CategoryPayerPolicy ID2022MedicaidAETNA MEDICARE ADVANTAGE [id number] 2022Medicare [id number] 2022MedicareAETNA MEDICARE AETNA MEDICARE PPO [id number] 2021- [phone] [address] [place] [address] [id number] [id number] [id number]90-07-9103Ictxvvt [id number] 2.16.840.1.298146.3.57[id number] 2..840.1.680297.3.57[id number] 2..840.1.730447.3.57[id number] 2..840.1.652119.3.57[id number] 2..840.1.645895.3.57[id number] 2..840.1.966244.3.579.2.1259 Social History DateTypeDetailFacilityStart: 07-04-2020 End: 71-29-7741Hmshbcm smoking status NHISEx-smokerOhio[facility] Hospital Work Phone: Start: 1966 End: 31-95-8121Dbgjxip of tobacco useCurrent smokerOhioHealth Van Wert Hospital Start: 1966 End: 78-44-0477Wgfgajr of tobacco useCigarette SmokerOhioHealth Van Wert Hospital Start: 07-04-2020 End: 42-22-0111Yhodhamfmm smoked current (pack per day) - Dnelovih2XBT [facility]2020 End: 46-36-4172Ezbhrpp use and exposureSmokeless tobacco non-userOSEast [facility]: 06-05-2021 End: 96-05-7348Wtlkghg intakeCurrent drinker of alcohol (finding)[facility]: 62-25-8008Izxepqc SDOH Alcohol CommentoccasionallyOSU [facility]: 03-08-2975Ewzgqfh Commentfor over 30 yearsOSEast [facility] Hospitaltart: 12-31-2148Xoa Assigned At BirthNot on fileOSMadison HealthTobacc smoking status NHISTobacco smoking consumption unknown [facility]: 01-41-0504Jzzpjxt smoking status NHISNever smoked tobacco [facility]: 86-27-2606Kpiozme Commentquit 10 years agoL[facility]: 08-09-2022 End: 81-03-0255Uuvrnsi use panelOSMadison HealthAdolescent depression screening zixzibrzib7IBYWooster Community HospitalGender identityIdentifies as female gender (finding)[facility] Medical Equipment Procedure CodeEquipment CodeEquipment Original TextEquipment IdentifierDatesby Does not apply route. Use as directed [id number]: 15-78-4828Dscmj once [id number]: 06-14-2020 Goals DatePatient GoalDesired Activity/StatePersonal health goalComment on above: 12/20/2015 Improve NDI Score to JOSE F to indicate functional improvements per patient self-assessment. 01/17/2016 Achieved: reduced disability score from 26 to 13%. 12/20/2015 Improve cervical rotation bilaterally by 10 degrees, for improved ability to drive with head turns. 01/17/2016 Not achieved, see ROM table. 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 01/17/2016 Achieved: 112/20/[address] head turns with decreased pain rating of 2-3/10 (0=no pain, 10=excruciating). 01/17/2016 Achieved: 04/27Comment on above: 12/20/2015 Improve NDI Score to JOSE F [...] 01/17/2016 Achieved: 04/27 Clinical Notes 06-05-2021 to 10-16-2024 Note Date & UuroPrngPyuyyfqr13-22-2451 NoteRight Eye Quality was good. Scan locations included subfoveal. Progression has been stable. Findings include abnormal foveal contour, epiretinal membrane. Left Eye Quality was good. Scan locations included subfoveal. Progression has been stable. Findings include abnormal foveal contour, epiretinal membrane.[facility] HospitalXntuufrmho90-01-0407 History of Present illness Narrative* Shelly Evans DO - 10/16/2024 10:30 AM EDT Images from the original note were not included. Subjective Patient ID: Ciara Martin is a 73 y.o. female. Chief Complaint Eye Exam HPI Eye Exam In both eyes. 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 Occasional floaters when driving, small dark spots. Using otc drops prn. Pt states vision is blurrier than in the past. Gradually worsening over the last year right eye (OD)>left eye (OS). Constant. Last edited by Shelly Evans DO on 10/16/2024 11:18 AM. Current Outpatient Medications (Ophthalmic Agents) Medication Sig Dispense Refill ketorolac (Acular) 0.5 % ophthalmic solution Administer 1 drop into both eyes in the morning and 1 drop at noon and 1 drop in the evening and 1 drop before bedtime. 5 mL 1 No current facility-administered medications for this visit. (Ophthalmic Agents) Current Outpatient Medications (Other) Medication Sig Dispense Refill amLODIPine (Norvasc) 5 MG tablet Take 5 mg by mouth in the morning. levothyroxine (Synthroid, Levoxyl) 75 MCG tablet Take 1 tablet by mouth in the morning. losartan (Cozaar) 50 MG tablet Take 50 mg by mouth in the morning. omeprazole (PriLOSEC) [address] capsule Take 40 mg by mouth in the morning. simvastatin (Zocor) 20 MG tablet TAKE 1 TABLET BY MOUTH EVERY DAY IN THE EVENING AT 6PM No current facility-administered medications for this visit. (Other) Past Medical History: Diagnosis Date Amblyopia Cataract Depression Epiretinal membrane (ERM) of left eye Hyperlipidemia Hypertension S/P cholecystectomy No Known Allergies Review of Systems Constitutional: Negative. HENT: Negative. Eyes: Negative. Respiratory: Negative. Cardiovascular: Negative. Gastrointestinal: Negative. Genitourinary: Negative. Musculoskeletal: Negative. Skin: Negative. Neurological: Negative. Psychiatric/Behavioral: Negative. Hematological: Negative. Endocrine: Negative. Allergic/Immunologic: Negative. Objective Base Eye Exam Visual Acuity (Snellen - Linear) Right Left Dist cc 20/100 20/40 Correction: Glasses Tonometry (Applanation, 11:26 AM) Right Left Pressure 15 15 Pupils Pupils Right PERRL Left PERRL Visual Castro Left Right Full Full Extraocular Movement Right Left Full Full Neuro/Psych Oriented x3: Yes Dilation Both eyes: 1.0% Mydriacyl @ 10:43 AM Additional Tests Keratometry K1 Delaplane K2 Delaplane Right 43.25 100 44.5 10 Left 44.5 90 45.25 180 Slit Lamp and Fundus Exam External Exam Right Left External Rosacea, Brow ptosis Rosacea, Brow ptosis Slit Lamp Exam Right Left Lids/Lashes Blepharitis, Dermatochalasis - upper lid, Ptosis Blepharitis, Dermatochalasis - upper lid, Ptosis Conjunctiva/Sclera White and quiet White and quiet Cornea Decreased tear film, 2+SPK Decreased tear film, Anterior basement membrane dystrophy Anterior Chamber Deep and quiet Deep and quiet Iris Round and reactive Round and reactive Lens Posterior chamber intraocular lens, 3+ Posterior capsular opacification Posterior chamber intraocular lens, 1+ Posterior capsular opacification Anterior Vitreous Normal Normal Fundus Exam Right Left Disc Normal Normal Macula Epiretinal membrane Epiretinal membrane Vessels Normal Normal Periphery Normal Normal Refraction Wearing Rx Sphere Cylinder Delaplane Add Right +1.00 -0.75 120 +2.25 Left +0.50 -0.75 180 +2.25 Manifest Refraction Sphere Cylinder Delaplane Right +2.25 -2.25 093 Left -0.25 -0.25 098 Final Rx Sphere Cylinder Delaplane Dist VA Add Right +0.25 -1.00 100 20/60 +2.75 Left -0.25 -0.25 100 20/25- +2.75 Expiration Date: 10/16/2025 Assessment/Plan Epiretinal membrane (ERM) of both eyes - Condition d/w pt. Stable. Cont to observe. Bilateral posterior capsular opacification -PCO OU: (Posterior Capsule Opacification) Can be observed without intervention if PCO is not visually significant. Nd:YAG laser capsulotomy may be considered if impairment of vision rises to a levelthat dose not meet the patient's functional needs or interferes with activities of daily living. Risks, benefits and alternatives to the procedure will be reviewed. If the patient has undergone Nd:YAG laser capsulotomy, they are to notify their professor of physics promptly if they have a significant change [...] lid scrubs were recommended. documented in this encounterLiberty HospitalEsviujlcse37-32-9367 NoteRight Eye Quality was good. Scan locations included subfoveal. Progression has been stable. Findings include abnormal foveal contour, epiretinal membrane, lamellar hole. Left Eye Quality was good. Scan locations included subfoveal. Progression has been stable. Findings include abnormal foveal contour, epiretinal membrane.[facility]ty HospitalHssinsrvpe62-38-7537 History of Present illness Narrative* Shelly Evans DO - 10/16/2023 1:30 PM EDT Images from the original note were not included. Assessment/Plan Diagnoses and all orders for this visit: Epiretinal membrane (ERM) of both eyes - Condition d/w pt. Stable. Cont to observe. Bilateral posterior capsular opacification -PCO OU: (Posterior Capsule Opacification) Can be observed without intervention if PCO is not visually significant. Nd:YAG laser capsulotomy may be considered if impairment of vision rises to a levelthat dose not meet the patient's functional needs or interferes with activities of daily living. Risks, benefits and alternatives to the procedure will be reviewed. If the patient has undergone Nd:YAG laser capsulotomy, they are to notify their professor of physics promptly if they have a significant change [...] lid scrubs were recommended. documented in this encounterLiberty HospitalNpbwoqewyd07-07-9731 Telephone encounter Note* Telephone Encounter - Sophie Ardon MA - 08/01/2023 11:31 AM EDT Record request faxed to [facility] 08/01/23 [facility]06-13-2024 Miscellaneous Notes* Telephone Encounter - Sophie Ardon MA - 08/01/2023 11:31 AM EDT Record request faxed to [facility] 08/01/23 * Telephone Encounter - Tori Cruz - 07/30/2023 9:02 AM EDT Received a medical records release from [facility]. Release put in provider folder documented in this encounterOSU [facility]06-[facility] Telephone encounter Note* Telephone Encounter - Tori Cruz - 07/30/2023 9:02 AM EDT Received a medical records release from [facility]. Release put in provider folder [facility]07-14-2022 NoteHNO ID: [id number] Author: Delmi Youssef V, MD Service: ? Author Type: Physician Type: Progress Notes Filed: 08/31/2021 3:32 PM Note Text: The documentation for this note was completed by Ana Luisa Garcia, [facility] acting as a scribe for Delmi YOUSSEF MD. 08/31/2021 3:25 PM. ASSESSMENT / PLAN: 1. Combined cataract, both eyes - Offered cataract extraction by phacoemulsification and intraocular lens implant with Dr. Youssef, both eyes, left eye first - Aim: [place] Both eyes Guarded prognosis in the setting of Epiretinal membrane with blunted fovea contour and Macular edema Both eyes - Flomax/alpha-rodríguez? No - Toric candidate: No - PanOptix candidate: No - Anesthesia: Topical with MAC - Contact lens use No - History of LASIK/PRK/RK No - Discussed initiate twice daily eyelid scrubs pending U/S biometry and surgery - Comanage with Dr Quintero; [facility] POD #1 Cataract Presurgical Documentation Cataract: Both [...] patient was offered a surgery/procedure at a [facility] facility. 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 Author Type: [employer] SAL[employer] ASSOCIATE Type: Progress Notes Filed: 08/31/2021 3:34 PM Note Text: ASSESSMENT/PLAN: 1. Combined forms of age-related cataract of both eyes - ICD9: 366.19, ICD10: H25.813 Dr Delmi Youssef Cataract evaluation today 2. Vitreous degeneration, bilateral - ICD9: 379.21, ICD10: H43.813 (primary diagnosis) Monitor 3. Epiretinal membrane (ERM) of both eyes - ICD9: 362.56, ICD10: H35.373 Pt ed Has been seen by retina specialist in [place] ~2017 I have confirmed and edited as necessary the relevant ophthalmic history, ROS, and the exam findings as obtained by others. I have seen and examined this patient. I also have reviewed and agree with the assessment and plan as stated above and agree with all of its relevant components. Sunil Logan, OD August 31, 2021 2:50 [facility]07-14-2022 History of Present illness Narrative * Delmi Youssef V, MD - 08/31/2021 3:25 PM EDT The documentation for this note was completed by Ana Luisa Garcia, COA acting as a scribe for Delmi YOUSSEF MD. 08/31/2021 3:25 PM. ASSESSMENT / PLAN: 1. Combined cataract, both eyes - Offered cataract extraction by phacoemulsification and intraocular lens implant with Dr. Youssef, both eyes, left eye first - Aim: [place] Both eyes Guarded prognosis in the setting of Epiretinal membrane with blunted fovea contour and Macular edema Both eyes - Flomax/alpha-rodríguez? No - Toric candidate: No - PanOptix candidate: No - Anesthesia: Topical with MAC - Contact lens use No - History of LASIK/PRK/RK No - Discussed initiate twice daily eyelid scrubs pending U/S biometry and surgery - Comanage with Dr Quintero; [facility] POD #1 Cataract Presurgical Documentation Cataract: Both [...] patient was offered a surgery/procedure at a [facility] facility. The surgeon/proceduralist and patient have discussed in detail the risk of exposure to and/or potential harm posed by the COVID-19 virus with having a surgery/procedure at this time versus the risk of delaying the surgery/pr ocedure. It is not possible to know either the risk of delaying the surgery or procedure or chance of getting an infection with perfect accuracy, but a joint decision was made between the patient andthe surgeon/proceduralist to proceed at this time with the scheduled surgery/procedure as indicatedon the consent form. 2. 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 I have confirmed and edited as necessary the relevant ophthalmic history,ROS, and the exam findings as obtained by others. I have seen and examined Ciara Martin. I also havereviewed and agree with the assessment and plan as stated above and agree with all of its relevant components. Delmi YOUSSEF MD August 31, 2021 3:25 PM * Sunil Logan, OD - 08/31/2021 2:50 PM EDT ASSESSMENT/PLAN: 1. Combined forms of age-related cataract of both eyes - ICD9: 366.19, ICD10: H25.813 Dr Delmi Youssef Cataract evaluation today 2. Vitreous degeneration, bilateral - ICD9: 379.21, ICD10: H43.813 (primary diagnosis) Monitor 3. Epiretinal membrane (ERM) of both eyes - ICD9: 362.56, ICD10: H35.373 Pt ed Has been seen by retina specialist in [place] ~2017 I have confirmed and edited as necessary the relevant ophthalmic history, ROS, and the exam findings as obtained by others. I have seen and examined this patient. I also have reviewed and agree with the assessment and plan as stated above and agree with all of its relevant components. Sunil Logan, OD August 31, 2021 2:50 PM [facility] Miscellaneous Notes* Telephone Encounter - Maria M Ruvalcaba - 06/22/2021 2:17 PM EDT Patient has been rescheduled * Telephone Encounter - Maria M Ruvalcaba - 06/22/2021 1:14 PM EDT LVM to let patient know appointment was cancelled today due to and emergency with Dr. Youssef. LVM at1:15PM 06/22/2021 [facility] History of Present illness Narrative* Kinsey Hernandez - 06/05/2021 1:20 PM EDT Patient offered a medical hvac r tech for sensitive exam. Pt declined documented in this encounterOS[facility] HospitalEvaluation note* Diagnosis Visit for screening mammogram Other screening mammogram documented in this encounter [facility]* Diagnosis Combined forms of age-related cataract of both eyes- Primary Other and combined forms of senile cataract Epiretinal membrane (ERM) of both eyes Vitreous degeneration, bilateral documented in this encounter [facility]* Diagnosis Combined forms of age-related cataract of both eyes- Primary Other and combined forms of senile cataract Combined forms of age-related cataract of both eyes Other and combined forms of senile cataract documented in this encounter [facility]* Diagnosis Epiretinal membrane (ERM) of both eyes- Primary Bilateral posterior capsular opacification Unspecified after-cataract Dry eyes Unspecified tear film insufficiency Blepharitis of upper and lower eyelids of both eyes, unspecified type [facility] Diagnosis Epiretinal membrane (ERM) of both eyes- Primary Dry eyes Unspecified tear film insufficiency Blepharitis of upper and lower eyelids of both eyes, unspecified type Bilateral posterior capsular opacification Unspecified after-cataract documented in this encounter [facility] Summary Purpose Family History No Family History Records FoundNo Family History Records FoundNo Family History Records FoundNo Family History Records Found Advance Directives No Advanced Directives Records FoundNo Advanced Directives Records FoundNo Advanced Directives Records FoundNo Advanced Directives Records Found Additional Source Comments Reason for Visit (unrecogniz ed section and content) SpecialtyDiagnoses / ProceduresReferred By ContactReferred To Contact Diagnoses Visit for screening mammogram Procedures MAMMO SCREENING WITH NAILA BILATERAL MAMMO SCREENING BILATERAL Mammography-Dima, Self-Requested [address] [place] [address] Referral IDStatusReasonStart DateExpiration DateVisits RequestedVisits [id number] Request/[id number]aCuztsz CommentsCataract EvaluationOUReasonOnset DateCommentsMedical Vlbhhks3307/30/2023 ReasonCommentsEye Exam Care Teams (unrecognized sec tion and content) Team MemberRelationshipSpecialtyStart DateEnd Date Crystal Santamaria MD [address] [place] [address] PCP - General04/10/07Team MemberRelationshipSpecialtyStart DateEnd Date Crystal Santamaria MD [address] [address] PCP - General04/10/07Team MemberRelationshipSpecialtyStart DateEnd Date Unallocated, Noms MD Mercedes [address] [place] [place], [place] [address] PCP - [facility]10/18/22Team MemberRelationshipSpecialtyStart DateEnd Date Unallocated, Noms ProviderMD Xiao [facility]Z [facility] [place] [address] PCP - [facility]10/18/22Te MemberRelationshipSpecialtyStart DateEnd Date Unallocated, [place] [address] PCP - [facility]10/18/22Te MemberRelationshipSpecialtyStart DateEnd Date Unallocated, Noms ProviderMD [address] [facility] [place] [address] PCP - [facility]10/18/22 Source Comments (unrecognize d section and content) In the event this informatio n is protected by the Federal Confidentiality of Alcohol and Drug Abuse Patient Records regulations: The Federal rules restrict any use of the information to criminally investigate or prosecute any alcohol or drug abuse patient.[facility] the event this information is protected by the Federal Confidentiality of Alcohol and Drug Abuse Patient Records regulations: The Federal rules restrict any use of the information to criminally investigate or prosecute any alcohol or drug abuse patient.[facility] Hospital[facility] the event this information is protected by the Federal Confidentiality of Alcohol and Drug Abuse Patient Records regulations: The Federal rules restrict any use of the information to criminally investigate or prosecute any alcohol or drug abuse patient.[facility] INFORMATION SOURCE (unrecogn ized section and content) DATE CREATED AUTHOR 09/07/2021 [facility] DATE CREATED AUTHOR AUTHOR'S ORGANIZ ATION 05/10/2022 [facility] DATE CREATED AUTHOR AUTHOR'S ORGANIZ ATION 08/10/2022 [facility] DATE CREATED AUTHOR AUTHOR'S ORGANIZ ATION 10/18/2024 [facility] EPIC FOR RECORDS PERTAINING TO PATIENTS WHO ARE [...] BE BASED ON THE PRIMARY CLINICAL RECORDS. [employer] [facility]. provides no warranty or guarantee of the accuracy [phone] in [id number] [id number]
[2025-01-07 09:40] LABS: Free T3 2.17 pg/mL (2.18-3.98); Thyroid Stimulating Hormone 8.872 uIU/mL (0.358-3.740)
== END 2025-01-07 08:41 | disposition home or self-care (01) ==
LOC: LAB 08:43
PROVIDERS: PCP Nurse Practitioner Family; Visit Provider Nurse Practitioner Family
DX: E03.9 Hypothyroidism, unspecified (principal)
CPT/HCPCS: 36415; 84436; 84443; 84481

== ENCOUNTER 2025-01-12 13:12 | Outpatient (OUT) | payer MEDICARE, SELFPAY ==
--- OUTSIDE RECORDS SUMMARY | 2025-01-12 13:16 | XMS_ITS | CCD ---
Author Organization [facility] CliniSyla Care Team Providers Care Supplies Packer Name Role Phone Crystal Santamaria MD Primary Care Provider [phone] Unavailable Primary Care Provider Unavailabl e MISC, [...] Unavailable Crystal Santamaria MD Primary Care Provider Unallocated , Noms Provider Primary Care Provi machelle Unallocated , Noms Provider Primary Care Provi machelle SHELLY EVANS Attending Unavailable Medications Current Medications MedicationDrug Class(es)DatesSig (Normalized)Sig (Original)[id number] 200 actuat albuterol 0.09 mg/actuat metered dose inhaler (2 sources)beta2-Adrenergic AgonistStart: 58-59-8426gjxa 1 puff(s) by inhalation every six hours as needed for wheezingalbuterol (PROAIR HFA) 108 (90 BASE) MCG/ACT Aero Soln Indications: Upper respiratory tract infection, unspecified type take 1 puff by inhalation every 6 hours as needed for Wheezing. 1 Inhaler 07/25/2015 ActiveamLODIPine 5 mg oral tablet (5 sources)Dihydropyridine Calcium Channel BlockerStart: 15-67-2125nvaj 1 tablet by mouth in the morningamLODIPine (Norvasc) 5 MG tablet Take 5 mg by mouth in the morning. 04/27/2022 Activebenoxinate hydrochloride 4 mg/ml / fluorescein sodium 2.5 mg/ml ophthalmic solution (1 source)Diagnostic DyeStart: 08-31-2021 End: 14-97-3774tepvpskqmyi-benoxinate 0.25-0.4 % 1 Drop (FLURESS)cholecalciferol 0.025 mg oral tablet (4 sources)Vitamin Dtake 2 tablets by mouth once dailyCholecalciferol (VITAMIN D) 1000 UNITS Tab Take 2 tablets by mouth daily. ActiveComment on above:Take 2,000 Units by mouth once daily.FLUoxetine 20 mg oral capsule (4 sources)Serotonin Reuptake InhibitorStart: 45-69-1106lpwt 1 capsule by mouth once dailyFLUoxetine 20 MG capsule Take 1 capsule by mouth daily. 90 capsule 3 08/09/2022 ActiveStart: 80-56-5367eymn 1 capsule by mouth once dailyFLUoxetine (PROZAC) 20 mg capsule Take 1 capsule by mouth once daily. 0 07/27/2021 Active Start: 67-07-0110hbjh 2 capsules by mouth once dailyFLUoxetine 20 MG capsule TAKE 2 CAPSULES BY MOUTH EVERY DAY 180 capsule 4 09/08/2020 ActiveComment on above:Take 1 capsule by mouth once daily.ketorolac tromethamine 5 mg/ml ophthalmic solution (4 sources)Nonsteroidal Anti-inflammatory Drug, Cyclooxygenase InhibitorStart: 29-11-0783cajrjsuci (Acular) 0.5 % ophthalmic solution Indications: Age-related nuclear cataract of both eyesAdminister 1 drop into both eyes in the morning and 1 drop at noon and 1 drop in the evening and 1 drop before bedtime. 5 mL 1 09/28/2022 Activelevothyroxine sodium 0.075 mg oral tablet (8 sources)l-ThyroxineStart: 52-61-4647vtzc 1 tablet by mouth in the morning levothyroxine (Synthroid, Levoxyl) 75 MCG tablet Take 1 tablet by mouth in the morning. 07/26/2022 ActiveStart: 31-03-3222mpvj 1 tablet by mouth once daily levothyroxine (SYNTHROID) 75 mcg tablet Take 75 mcg by mouth once daily. 0 07/24/2021 ActiveStart: 11-69-9780dtle 1 tablet by mouth once dailylevothyroxine 75 MCG tablet TAKE 1 TABLET BY MOUTH EVERY DAY 90 tablet 4 06/23/2020 Active Comment on above:Take 75 mcg by mouth once daily.losartan potassium 50 mg oral tablet (8 sources)Angiotensin 2 Receptor BlockerStart: 22-37-9108galc 1 tablet by mouth in the morninglosartan (Cozaar) 50 MG tablet Take 50 mg by mouth in the morning. 04/27/2022 ActiveStart: 90-81-5512yrwi 1 tablet by mouth once dailylosartan (COZAAR) 25 mg tablet Take 1 tablet by mouth once daily. 0 07/06/2021 Active Start: 80-06-0623mblh 1 tablet by mouth once dailylosartan 25 MG tablet TAKE 1 TABLET BY MOUTH EVERY DAY 90 tablet 4 06/08/2020 ActiveComment on above:Take 1 tablet by mouth once daily.Multiple Vitamins-Minerals (Hair Skin Nails) capsule (2 sources)Multiple Vitamins-Minerals (Hair Skin Nails) capsule Take by mouth. ActiveMultiple Vitamins-Minerals (Hair Skin Nails) capsule Take by mouth. 0 Activenystatin 100 unt/mg topical powder (4 sources)Polyene AntifungalStart: 98-31-5766bngmuinp [id number] UNIT/GM Powder powder Indications: Veronica infection of flexural skin Apply 1 Application topically 3 times daily. 45 g 08/31/2020 ActiveStart: 13-06-0542ibuproiq (MYCOSTATIN) powder Apply 1 application to affected area as needed. 0 08/31/2020 ActiveComment on above:Apply 1 application to affected area as needed.omeprazole 40 mg delayed release oral capsule (8 sources)Proton Pump InhibitorStart: 68-53-9390bsrd 1 capsule by mouth once dailyomeprazole [address] capsule TAKE 1 CAPSULE BY MOUTH EVERY DAY 90 capsule 4 06/11/2022 ActiveStart: 29-81-7347bbjh 1 capsule by mouth once daily omeprazole [address] capsule TAKE 1 CAPSULE BY MOUTH EVERY DAY 90 capsule 4 04/07/2021 ActiveComment on above:Take 1 capsule by mouth once daily. phenylephrine hydrochloride 25 mg/ml ophthalmic solution (1 source)alpha-1 Adrenergic AgonistStart: 08-31-2021 End: 56-27-7302EHYAOGrxdlymy 2.5 % 1 Drop (AK-DILATE, ARPAN-SYNEPHRINE) proparacaine hydrochloride 5 mg/ml ophthalmic solution (1 source)Local AnestheticStart: 08-31-2021 End: 55-87-5216ptpecywkvwkk 0.5 % 1 Drop (ALCAINE)simvastatin 20 mg oral tablet (8 sources)HMG-CoA Reductase InhibitorStart: 25-03-5511lqnb 1 tablet by mouth once daily in the eveningsimvastatin 20 MG tablet TAKE 1 TABLET BY MOUTH EVERY DAY IN THE EVENING AT 6PM 90 tablet 4 07/26/2022 ActiveComment on above:Take 20 mg by mouth once daily.tropicamide 10 mg/ml ophthalmic solution (1 source)AnticholinergicStart: 08-31-2021 End: 95-78-1894nyjhzafktuk 1 % 1 Drop (MYDRIACYL) Completed/Discontinued Medications MedicationDrug Class(es)DatesSig (Normalized)Sig (Original)Biotin (2 sources)BIOTIN ORAL Take by mouth once daily. 0 ActiveComment on above:Take by mouth once daily.gabapentin 100 mg oral capsule (3 sources)Anti-epileptic AgentStart: 04-07-2021 End: 89-28-2932wpvkzwwfos (NEURONTIN) 100 mg capsule 1 capsule once daily. 0 07/16/2021 ActiveComment on above:1 capsule once daily. Problems Active Problems Problem ClassificationProblemDateDocumented DateEpisodic/ChronicCataract (20 sources)Bilateral senile combined form cataracts of eyes; Translations: [Combined forms of age-related cataract, bilateral]Onset: 09-25-2022 Resolved: 60-84-7761YouxsfuGiggobb obstructive pulmonary disease and bronchiectasis (4 sources)Chronic bronchitis; Translations: [Unspecified chronic bronchitis] 88-49-8173MgbxwbjYddzodwqz of lipid metabolism (2 sources)Hyperlipidemia; Translations: [Hyperlipidemia, unspecified]04-23-2021 ChronicEsophageal disorders (2 sources)Gastro-esophageal reflux disease with esophagitis; Translations: [Reflux esophagitis]99-84-7954PhzhkkjWakzpepin hypertension (4 sources)Benign essential hypertension; Translations: [Essential (primary) hypertension]Onset: 513351-86-6290QrfbktqQfpimpewbyjk; infection of eye (except that caused by tuberculosis or sexually transmitteddisease) (6 sources)Blepharitis of upper and lower eyelids of bilateral eyes; Translations: [Unspecified blepharitis right eye, upper and lower eyelids]Onset: 263393-47-3257SavmuvauUqww disorders (2 sources)Depressive disorder; Translations: [Other specified depressive episodes]78-86-7869LdjxmasQfmwm aftercare (4 sources)Other snf (current) drug therapy; Translations: [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]Onset: 02-61-6255ZozbbapxYiccp diseases of kidney and ureters (2 sources)Cyst of kidney; Translations: [Cyst of kidney, acquired]01-17-2010 EpisodicOther ear and sense organ disorders (2 sources)Sensorineural hearing loss; Translations: [Unspecified sensorineural hearing loss]Onset: 352385-67-0403QajxyxtQdsmz eye disorders (1 source)Bilateral vitreous degeneration of eyes; Translations: [Vitreous degeneration, bilateral]ChronicOther eye disorders (6 sources)Dry eyes; Translations: [Dry eye syndrome of bilateral lacrimal glands]Onset: 908610-78-4252WzpbmrnpFtynx nutritional; endocrine; and metabolic disorders (2 sources)Body mass index 30+ - obesity; Translations: [Obesity, unspecified] Onset: 592830-81-2893YquqmckXhjsatjyhc and visceral atherosclerosis (2 sources)Arteriosclerotic vascular disease; Translations: [Unspecified atherosclerosis]22-29-2908CbnonbiGjbfbibl codes; unclassified (2 sources)Hypersomnia; Translations: [Hypersomnia, unspecified]Onset: 647692-83-5239JwcennxZtzrqnzg codes; unclassified (2 sources)Obstructive sleep apnea syndrome; Translations: [Obstructive sleep apnea (adult) (pediatric)]Onset: 467389-94-4494KfljofaNgiglmoh codes; unclassified (2 sources)Periodic limb movement disorder; Translations: [Periodic limb movement disorder]Onset: 504235-45-1589CtzisvvMdphdye detachments; defects; vascular occlusion; and retinopathy (7 sources)Bilateral epiretinal membrane of eyes; Translations: [Puckering of macula, bilateral]Onset: 95-01-2250IjbhyeiJicqfwqqb and history of mental health and substance abuse codes (2 sources)Personal history of nicotine dependence; Translations: [Personal history of nicotine dependence]Onset: 65-48-6986FkmeytcfCxrotdogfgc; intervertebral disc disorders; other back problems (2 sources)Degeneration of cervical intervertebral disc; Translations: [Other cervical disc degeneration, unspecified cervical region]Onset: 11-09-2016 52-74-7575MxzwyraHdoldwd disorders (2 sources)Hypothyroidism, unspecified; Translations: [Hypothyroidism, unspecified]Onset: 14-90-5183Srxtegx Past or Other Problems Problem ClassificationProblemDateDocumented DateEpisodic/ChronicDiabetes mellitus without complication (6 sources)Prediabetes; Translations: [Prediabetes]Onset: 11-20-2013 Resolved: 350759-63-1514TaebdgewVowg disorders (2 sources)Mood disordersOnset: 06-14-2020 Resolved: Other and unspecified benign neoplasm (2 sources)Adenomatous polyp of colon ; Translations: [Benign neoplasm of colon, unspecified]Onset: 345739-43-0781MeubbezeSpvcc and unspecified benign neoplasm (2 sources)Gastric polyp; Translations: [Polyp of stomach and duodenum]Onset: 622043-36-0949HsdjdlfvCulkd gastrointestinal disorders (2 sources)Dysphagia; Translations: [Dysphagia, unspecified]Onset: 06-27-2020 13-14-9209BlybxyaoVlbpi lower respiratory disease (2 sources)Snoring; Translations: [Snoring]Onset: 797496-74-5041Tgilnumf Other lower respiratory disease (2 sources)Multiple nodules of lung; Translations: [Other nonspecific abnormal finding of lung field]Onset: 714094-90-8188YuamudlxNmeis screening for suspected conditions (not mental disorders or infectious disease) (11 sources)Patient encounter status; Translations: [Encounter for screening mammogram for malignant neoplasm of breast]Onset: 44-89-5325BdtqdvxaKrxtfbete- related disorders (2 sources)Tobacco user; Translations: [Nicotine dependence, unspecified, uncomplicated] Resolved: 999056-51-4547Ciarqqx Results Test NameValueInterpretationReference RangeFacilityOptical coherence tomography study reporton 33-19-7820RJOXCitizens Memorial Healthcare HealthcareRadiology Study observation (narrative)[facility] HealthcareOptical coherence tomography study report on 10-30-7066IWGSCitizens Memorial Healthcare HealthcareRadiology Study observation (narrative)[facility] HealthcareCT LUNG CANCER SCREENINGon 03-28-6267PE LUNG CANCER SCREENINGLOW-DOSE CT LUNG SCREENING EXAM: [...] annual screening with LDCT in 12 months [facility] HospitalMAMMO SCREENING WITH NAILA BILATERALon 66-62-9806NOKOZ SCREENING WITH NAILA BILATERALEXAM: MAMMO SCREENING WITH [...] The current National Comprehensive Cancer Network and [employer] guidelines recommend women undergo a screening mammogram every year over the age of 40 and continue mammographic screening as long as they are in good health. Screening mammography under age 40 may occur for women who are at increased risk for breast cancer. Table formatting from the original result was not included. MAMMO STANDARD RISKNormMcKitrick HospitalBUNon 40-06-2413Efxo nitrogen [Mass/Vol]22.0 mg/dLCritically high7.0-18.0The [facility] HospitalComment on above:Performed By: #### DEVI JUSTIN CREA #### [facility] [address] [place] [address] Dr. Ursula 05-22-1410Ciuetxddml [Mass/Vol]0.72 mg/dLNormal 0.55-1.02The [facility] HospitalComment on above:Performed By: #### NHAN BUN, CREA #### [facility] [address] [address] [address] Ursula BruceGFR-AF MONTENEGRIN>60Normal>=60The [facility] HospitalComment on above:Performed By: #### ELEC, BUN, CREA #### [facility] [address] [address] [address] Ursula BruceGFR-NON AF MONTENEGRIN>60Normal>=60The [facility] HospitalComment on above:Performed By: #### ELEC, BUN, CREA #### [facility] [address] [address] [address] Ursula BruceLECTROLYTESon 00-99-5454Tockz gap [Moles/Vol]11.8 mmol/LNormal The [facility] HospitalComment on above:Performed By: #### ELEC, BUN, CREA #### [facility] [address] [place] [address] Dr. Ursula CastilloChloride [Moles/Vol]105 mmol/KCwfuxs05-958Gqk [facility] Comment on above:Performed By: #### ELEC, BUN, CREA #### [facility] [address] [address] [address] Ursula CastilloCO2 [Moles/Vol]29.8 mmol/OTdeegk42.0-32.0The [facility] Comment on above:Performed By: #### ELEC, BUN, CREA #### [facility] [address] [address] [address] Ursula CastilloPotassium [Moles/Vol]4.6 mmol/LNormal3.5-5.1The [facility] Comment on above:Performed By: #### ELEC, BUN, CREA #### [facility] [address] [address] [address] Ursula CastilloSodium [Moles/Vol]142 mmol/VUqbatq382-481BmtVeterans Health Administration Comment on above:Performed By: #### ELEC, BUN, CREA #### [facility] [address] [address] [address] Ursula CastilloUS PELVIC W TRANSVAGINALon 13-16-8041TI PELVIC W TRANSVAGINAL EXAM: US PELVIC W [...] I have reviewed and approved this report. NAccess Hospital [place]CNPNon 88-63-4287WXCRJmxpwplrf (OPHTLN) CIARA MARTIN ([id number]) 1950 F Date Time Provider Department 06/22/21 [...] Encounter Status:Closed by MARIA M RUVALCABA on 06/22/21[facility] Breast - bilateral Screeningon 84-87-5718SPIBVZXPLE: No mammographic evidence of malignancy. BI-RADS: 2: Benign Recommendation: Routine mammography. Recommendation Laterality: Bilateral The current National Comprehensive Cancer Network and [place] [employer] guidelines recommend women undergo a screening mammogram every year over the age of 40 and continue mammographic screening as long as they are in good health. Screening mammography under age 40 may occur for women who are at increased risk for breast cancer. RADIOLOGYEXAM: MAMMO SCREENING WITH NAILA BILATERAL, 06/05/2021 13:30 [...] The current National Comprehensive Cancer Network and [place] [employer] guidelines recommend women undergo a screening mammogram every year over the age of 40 and continue mammographic screening as long as they are in good health. Screening mammography under age 40 may occur for women who are at increased risk for breast cancer. [facility] HospitalRadiology Study observation (narrative)[facility] HospitalMG Breast - bilateral ScreeningOrdered By: Loli Watts on 70-27-2826BCCKindred Healthcare Work Phone: Encounters Encounter DateEncounter TypeCare ProviderFacilityStart: 10-16-2024 End: 10-91-0987Txikoi flowsDom Evans DO Work Phone: noms [facility] EyeStart: 10-16-2024 End: 99-79-9112Wkcrsw flowsheetJonathan Magda Zahler DO Work Phone: noms [facility] EyeStart: 10-16-2024 End: 97-13-0867rdftojvakwSBAMRQWR D ZAHLERNot AvailableStart: 10-16-2023 End: 82-51-9388Vgixfn flowsheetJonathan Magda Zahler DO Work Phone: noms OPHTStart: 10-16-2023 End: 88-26-5127Upgnch flowsheetJonathan Magda Elenahler DO Work Phone: noms NB OPHTStart: 07-30-2023 End: 97-90-1864Gjvqofnsd encounterPatricia BrownCentral SchedulingComment on above:Medical RecordsStart: 56-80-3242eswxocecfnOELLAZC G KREGER [facility]: 96-40-5946bezkwaybrgXJMSBAW G KREGER [facility]: 93-05-5763nldmdefxcoQXGWTRS G KREGER [facility]art: 05-02-2022 End: 04-17-6093zumnmyxpyfAE DOCTOR MISCFacility:C6Qnkaa: 49-33-0793Bjlkpy Only Delmi Youssef MD Work Phone: OphthalmologyComment on above:Combined forms of age- related cataract of both eyes (Primary Dx)Start: 72-94-6371chkwydlvjdGYAMOZS G KREGERFacility:[facility]ASK[facility]OSPITALStart: 08-31-2021 End: 82-58-4182Ucinzqr encounter procedureDelmi Youssef MD Work Phone: OphthalmologyComment on above:Combined forms of age- related cataract of both eyes (Primary Dx); Epiretinal membrane (ERM) of both eyes; Vitreous degeneration, bilateralStart: 27-44-7836Irjnokuta encounterAiyisel Youssef MD Work Phone: OphthalmologyComment on above:AppointmentStart: 06-05-2021 End: 12-82-8989Guovtdhuqi hospital visit by physicianCrystal Santamaria MD Work Phone: [facility] and Mammography Outpatient Care InvernessComment on above:ArrivedStart: 40-27-0877Fzyhjpj encounter status Crystal Santamaria MD Work Phone: [facility] Procedures DateProcedureProcedure DetailPerforming ClinicianStart: 10-60-5809Okactnhqlhxc ophthalmic imaging retinaShelly Evans DO Work Phone: Start: 10-16-2024 End: 69-72-4594Ouowr medical xm&eval comprhnsv estab pt 1/>Epiretinal membrane (ERM) of both eyesShelly Evans DO Work Phone: comment on above:Epiretinal membrane (ERM) of both eyes (Primary Dx); Dry eyes; Blepharitis of upper and lower eyelids of both eyes, unspecified type; Bilateral posterior capsular opacificationStart: 48-53-7352Oaevnhcdahrj ophthalmic imaging Hermelinda Evans DO Work Phone: Start: 10-16-2023 End: 23-50-9232Unpdd medical xm&eval comprhnsv estab pt 1/>Epiretinal membrane (ERM) of both eyesShelly Evans DO Work Phone: comment on above:Epiretinal membrane (ERM) of both eyes (Primary Dx); Bilateral posterior capsular opacification; Dry eyes; Blepharitis of upper and lower eyelids of both eyes, unspecified typeStart: 72-58-9261EbninwspjhsNvssleer Zahler DO Work Phone: Start: 06-05-2021 End: 45-72-2178Ngwheovgh mammography bi 2-view breast inc cadSelf-Requested Mammography-Dima Work Phone: Start: 33-63-2248Qibvk 1996 panel - Serum or Plasma Crystal Santamaria MD Work Phone: Start: 19-72-3221FgpyjhovtfoAjssvoy Kreger MD Work Phone: Plan of Treatment DateCare ActivityDetailAuthorStart: 49-96-2517Wphuakxtk for malignant neoplasm of colonNOMT HealthcareStart: 30-77-0596Ctrcqes vaccinationTETANUSOSKettering Health Hamilton CenterStart: 58-08-4886Qnymrkv lipid profileLIPID SCREENINGOSU [facility] CenterStart: 33-95-6664Gulmg panelLIPID SCREENINGOSU [facility] CenterStart: 32-94-6237Gjfnyweud vaccinationInfluenza Vaccine (#1)[facility]OM[facility] HealthcareStart: 10-16-2024 End: 35-34-7224Wxmhdmg encounter oglhbqwlu30/29/2025 10:30 AM EDT Office Visit [facility] [address] [place] [address] Shelly Evans, DO [address] [place] [address] ArrivedNOGulf Coast Veterans Health Care System EyeComment on above:ArrivedStart: 34-95-7969XBRMGTMN SCREENDIABETES SCREENCleveland Clinic Mentor Hospital Start: 05-47-4942Fvmckngpu vaccinationOSU [facility] CenterStart: 10-16-2023 End: 98-25-8347Pnxdipc encounter zijqksssn28/28/2024 1:30 PM EDT Office Visit [facility] [address] [place] [id number] Shelly Evans, [address] [place] [address] ArrivedNOMS OPHTComment on above:ArrivedStart: 06-22-2024Medicare Annual Wellness (AWV)Medicare Annual Wellness (AWV)N[facility] HealthcareStart: 40-46-7407DRSMTFPPUFGC HEALTH VISITPREVENTATIVE HEALTH VISITOSProtestant Deaconess Hospitaltart: 97-52-7064Ntdmealdj for malignant neoplasm of breastOSU [facility] Hospitaltart: 84-89-9399Aovhjvtvb for malignant neoplasm of lungLUNG CANCER SCREENINGOSU [facility]uffton Hospitaltart: 05-26-2023 ColonoscopyCOLONOSCOPYWyandot Memorial Hospitaltart: 16-00-0405Ladyipgyh for malignant neoplasm of colonCOLONOSCOPYWyandot Memorial Hospitaltart: 10-19-2022 COVID-19 VACCINE ( season)COVID-19 VACCINE ()[facility]uff[facility] Hospitaltart: 08-31-2022 End: 22-62-7651QAB BIOMETRY W/ IOL CALC OU (BOTH EYES)IOL BIOMETRY W/ IOL CALC OU (BOTH EYES) OPHT Imaging Routine Combined forms of age-related cataractof both eyes Expected: 08/31/2022, Expires: 02/22/2023[facility] Work Phone: Comment on above:Expected: 08/31/2022, Expires: 02/22/2023Start: 27-37-3029Oestptc stimulating hormone measurementTSCity Hospitaltart: 19-14-5859VdbicaxnpztNMDGAVIFLVdzrggzqo ClinicStart: 45-93-0589Gyhdydcjj mammographyMAMMOGRAM SCREENING DISCUSSIONOSProtestant Deaconess Hospitaltart: 87-77-5823Hjfptxsdp vaccinationKindred Hospital Limatart: 07-27-2021 End: 97-74-3861Rnkjvct encounter /09/2022 Office Visit General Medicine Crystal Santamaria MD [address] [place] [address] [facility] HospitalStart: 65-41-2251Hshatdzzx for malignant neoplasm of lungLUNG CANCER SCREENINGOSProtestant Deaconess Hospitaltart: 54-41-1277Msirbku stimulating hormone measurementTSHOBethesda North Hospitaltart: 83-93-9375VDAGN-19 VACCINE (4 - Booster for Pfizer series)COVID-19 VACCINE (4 - Booster for Pfizer series) [facility] Limatart: 40-29-0582OEGZ SCANDEXA SCANBrecksville VA / Crille Hospital Start: 88-90-2662TVGQWKI DIRECTIVE DISCUSSIONADVANCE DIRECTIVE DISCUSSION [facility]atart: 93-14-5899PWTI DENSITYBONE DENSITYKindred Hospital Limatart: 79-06-0248CKSXJAZWEEYU: 65+ (1 - PCV)PNEUMOCOCCAL: 65+ (1 - PCV)[facility] Start: 31-19-4752EVYXKMOIX AGE 65 AND OVER WITH 5YR LOOKBACK (#1)PNEUMOVAX AGE 65 AND OVER WITH 5YR LOOKBACK (#1)[facility]atart: 20-75-7251UDEVSFYFVAUB HEALTH VISITPREVENTATIVE HEALTH VISITOSProtestant Deaconess Hospitaltart: 2009 Hepatitis B vaccinationHEP B VACCINE (1 of 3 - Risk 3-dose series)[facility] Hospitaltart: 46-29-2191CJRAJMQH VACCINE (1 of 2)SHINGRIX VACCINE (1 of 2)[facility]art: 18-90-8621TIFCWMELR (FIT-DNA)COLOGUARD (FIT-DNA) [facility]art: 03-42-6163PgsnoklpxezPHMGBQYSKNDQcntcdbfz ClinicStart: 87-50-9106NTMROTVSZL CANCER SCREENINGCOLORECTAL CANCER SCREENINGCleveland Clinic [facility] Hospital Start: 37-92-4458NJ COLONOGRAPHYCT COLONOGRAPHYKindred Hospital Limatart: 1994 DIABETES SCREENDIABETES SCREENKindred Hospital Limatart: 62-76-9978PPQFL OCCULT BLOODFECAL OCCULT BLOODKindred Hospital Limatart: 94-18-1670GXZBF SCREENLIPID SCREEN [facility]art: 39-11-4447BAOHCUCXLAXACXBBFWLXNZOTMDWhjpucmmk Clinic Start: 23-57-5107HedwjnazkicBVWMBOYLGKzosonbmh ClinicStart: 32-84-4620Ctjje microalbumin profileDTAP,TDAP,TD (1 - Tdap)[facility]art: 10-29-1968 HEPATITIS C SCREENINGHEPATITIS C SCREENINGKindred Hospital Limatart: 59-71-7128Pnjtp depression screening assessmentDEPRESSION SCREENINGKindred Hospital Limatart: 84-77-5582OBHDW-19 VACCINE (1)COVID-19 VACCINE (1)[facility]atart: 34-81-9350Coignhqib for malignant neoplasm of colonNOMT HealthcareOCT MACULA CIRRUS OU (BOTH EYES)OCT MACULA CIRRUS OU (BOTH EYES) OPHT Imaging Routine Combined forms of age-related cataract of both eyes 08/31/2021 1:24 PM EDT [facility] Work Phone: [facility] Immunizations Immunization DateImmunizationNotesCare AugogcgdMyjroqju46-41-4577rcdyrjagk virus vaccine, unspecified formulationJosabi Evans DO Work Phone: [facility] SystemIbvykxyspd63-64-7604hbvdrvsep virus vaccine, unspecified formulationJonathan Zahler DO Work Phone: [facility] SystemQvlvtnsrrc31-53-1565uvzocdbin virus vaccine, unspecified formulationJane Todd Crawford Memorial Hospitalroxie [facility]10-16-2021 Influenza, High-dose Seasonal, Quadrivalent, Preservative FreeT[facility]08[facility]24-2020Influenza, High-dose Seasonal, Quadrivalent, Preservative Pramod Santamaria MD Work Phone: [phone] [place], [place] 5061304-18-2020zoster vaccine recombinantCrystal Santamaria MD Work Phone: [phone] [place], [place] 7564301-30-2020tetanus toxoid, reduced diphtheria toxoid, and acellular pertussis vaccine, adsorbedCynoel Santamaria MD Work Phone: [phone]01-30-2020zoster vaccine recombinantCrystal Santamaria MD Work Phone: [phone] [place], [place] 7564310-10-2019influenza, high dose seasonal, preservative-freeCrystal Santamaria MD Work Phone: [phone] [place], [place] 7564310-31-2018influenza, high dose seasonal, preservative-freeCrystal Santamaria MD Work Phone: [phone] [place], [place] 7564311-08-2016influenza, high dose seasonal, preservative-freeCrystal Santamaria MD Work Phone: [phone] [place], [place] 7564311-08-2016pneumococcal polysaccharide vaccine, 23 valentCrystal Santamaria MD Work Phone: [phone]12-04-2015influenza, high dose seasonal, preservative-freeCrystal Santamaria MD Work Phone: [phone] [address] [place], [place] 5061312-04-2015influenza, seasonal, injectableCrystal Santamaria MD Work Phone: [phone]12-04-2015pneumococcal conjugate vaccine, 13 valentCrystal Santamaria MD Work Phone: [phone]10-03-2014influenza, seasonal, injectableCrystal Santamaria MD Work Phone: [phone]01-17-2013influenza virus vaccine, whole virusCrystal Santamaria MD Work Phone: [facility] HospitalBxakyc61-44-0547fnipvvfsu virus vaccine, whole virusCrystal Santamaria MD Work Phone: [facility] HospitalVjfvmq26-47-1107xtxcztbsqbbj polysaccharide vaccine, 23 valentCrystal Santamaria MD Work Phone: [phone] Work Phone: [phone] virus vaccine, unspecified formulationCrystal Santamaria MD Work Phone: [phone]02-19-2008tetanus toxoid, reduced diphtheria toxoid, and acellular pertussis vaccine, adsorbedCrystal Santamaria MD Work Phone: [facility] Payers DatePayer CategoryPayerPolicy [id number] MEDICARE ADVANTAGE [id number] 2022Medicare [id number] 2022MedicareAETNA MEDICARE AETNA MEDICARE PPO [id number] 2021- [phone] [address] [place] [address] [id number] [id number] [id number] [id number] 2..840.1.624656.3.57[id number] 2..840.1.762690.3.57[id number] 2..840.1.656739.3.57[id number] 2..840.1.935722.3.57[id number] 2..840.1.566490.3.579.2.1259 Social History DateTypeDetailFacilityStart: 07-04-2020 End: 97-68-2438Fnhglbj smoking status NHISEx-smokerB[facility] Work Phone: Start: 1966 End: 38-60-2788Yqbnbkr of tobacco useCurrent smokerBrecksville [facility] Hospital Start: 1966 End: 66-45-9697Anvcfhd of tobacco useCigarette SmokerBrecksville [facility] Start: 07-04-2020 End: 84-69-9145Byjsdjndsa smoked current (pack per day) - Oxdrdntt3LTO [facility]: 07-04-2020 End: 36-47-6781Hfmbfhw use and exposureSmokeless tobacco non-userOSProtestant Deaconess Hospitaltart: 06-05-2021 End: 59-25-3423Quaikhb intakeCurrent drinker of alcohol (finding)[facility]: 55-20-7125Xfuskom SDOH Alcohol CommentoccasionallyOSU [facility] Hospitaltart: 32-32-1800Csvkfju Commentfor over 30 yearsOSProtestant Deaconess Hospitaltart: 00-30-5440Lvv Assigned At BirthNot on fileOSSelect Medical Specialty Hospital - ColumbusTobacc smoking status NHISTobacco smoking consumption unknown [facility]: 56-85-0806Pffomct smoking status NHISNever smoked tobacco [facility]: 87-80-4382Bqpsnmk Commentquit 10 years agoKind[facility] Limatart: 08-09-2022 End: 53-31-3169Yxvpycn use panelOSSelect Medical Specialty Hospital - ColumbusAdolescent depression screening xkiivfellt4QZVKindred HealthcareGender identityIdentifies as female gender (finding)[facility] Medical Equipment Procedure CodeEquipment CodeEquipment Original TextEquipment IdentifierDatesby Does not apply route. Use as directed [id number]: 22-56-4630Coijj once [id number]: 06-14-2020 Goals DatePatient GoalDesired Activity/StatePersonal health goalComment [...] Notes 06-05-2021 to 10-16-2024 Note Date & ZwcaYzqpDqdfpyzb56-58-2884 NoteRight Eye Quality was good. Scan locations included subfoveal. Progression has been stable. Findings include abnormal foveal contour, epiretinal membrane. Left Eye Quality was good. Scan locations included subfoveal. Progression has been stable. Findings include abnormal foveal contour, epiretinal membrane.[facility] SystemLzghfuapef63-17-6269 History of Present illness Narrative* Shelly Evans [...] @ 10:43 AM Additional Tests Keratometry K1 Antelope K2 Antelope Right 43.25 100 44.5 10 Left 44.5 [...] Normal Normal Refraction Wearing Rx Sphere Cylinder Antelope Add Right +1.00 -0.75 120 +2.25 Left +0.50 -0.75 180 +2.25 Manifest Refraction Sphere Cylinder Antelope Right +2.25 -2.25 093 Left -0.25 -0.25 098 Final Rx Sphere Cylinder Antelope Dist [place] Add Right +0.25 -1.00 100 [...] laser capsulotomy, they are to notify their dismantler promptly if they have a significant change [...] lid scrubs were recommended. documented in this encounterLake Regional Health SystemPhmstjhpeq69-21-7977 NoteRight Eye Quality was good. Scan locations included subfoveal. Progression has been stable. Findings include abnormal foveal contour, epiretinal membrane, lamellar hole. Left Eye Quality was good. Scan locations included subfoveal. Progression has been stable. Findings include abnormal foveal contour, epiretinal membrane.[facility] SystemUykkesrilv02-47-9715 History of Present illness Narrative* Shelly Evans [...] laser capsulotomy, they are to notify their dismantler promptly if they have a significant change [...] lid scrubs were recommended. documented in this encounterLake Regional Health SystemHccfyrnajz56-46-3008 Telephone encounter Note* Telephone Encounter - Sophie Ardon MA - 08/01/2023 11:31 AM EDT Record request faxed to [facility] 08/01/23 [facility]06-13-2024 Miscellaneous Notes* Telephone Encounter - Sophie Ardon MA - 08/01/2023 11:31 AM EDT Record request faxed to [facility] 08/01/23 * Telephone Encounter - Tori Cruz - 07/30/2023 9:02 AM EDT Received a medical records release from [facility]. Release put in provider folder documented in this encounterOSU [facility]06-11-2024 Telephone encounter Note* Telephone Encounter - Tori Cruz - 07/30/2023 9:02 AM EDT Received a medical records release from [facility]. Release put in provider folder [facility]07-14-2022 NoteHNO ID: [id number] Author: Delmi Youssef V, MD Service: ? Author Type: Physician Type: Progress Notes Filed: 08/31/2021 3:32 PM Note Text: The documentation for this note was completed by Ana Luisa Garcia, [facility] acting as a scribe for Delmi YOUSSEF MD. 08/31/2021 3:25 PM. ASSESSMENT / PLAN: 1. Combined cataract, both eyes - Offered cataract extraction by phacoemulsification and intraocular lens implant with Dr. Youssef, both eyes, left eye first - Aim: Jachin Both eyes Guarded prognosis in the setting of Epiretinal membrane with blunted fovea contour and Macular edema Both eyes - Flomax/alpha-rodríguez? No - Toric candidate: No - PanOptix candidate: No - Anesthesia: Topical with MAC - Contact lens use No - History of LASIK/PRK/RK No - Discussed initiate twice daily eyelid scrubs pending U/S biometry and surgery - Comanage with Dr Quintero; [facility] POD #1 Cataract Presurgical Documentation Cataract: Both [...] patient was offered a surgery/procedure at a [facility] facility. The surgeon/proceduralist and patient have [...] foveal contour with Macular edema Both eyes WEBSPHERE PORTAL ARCHITECT 402 um Right eye, 410 um Left [...] Delmi YOUSSEF MD August 31, 2021 3:25 [facility]07-14-2022 NoteHNO ID: [id number] Author: Sunil Logan OD Service: ? 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 Combined forms of age-related cataract of both eyes - ICD9: 366.19, ICD10: H25.813 Dr Delmi Youssef Cataract evaluation today 2. Vitreous degeneration, bilateral - ICD9: 379.21, ICD10: H43.813 (primary diagnosis) Monitor 3. Epiretinal membrane (ERM) of both eyes - ICD9: 362.56, ICD10: H35.373 Pt ed Has been seen by retina specialist in [place] ~2017 I have confirmed and edited as necessary the relevant ophthalmic history, ROS, and the exam findings as obtained by others. I have seen and examined this patient. I also have reviewed and agree with the assessment and plan as stated above and agree with all of its relevant components. Sunil Logan, OD August 31, 2021 2:50 [facility]07-14-2022 History of Present illness Narrative * [...] both eyes, left eye first - Aim: Jachin Both eyes Guarded prognosis in the setting of Epiretinal membrane with blunted fovea contour and Macular edema Both eyes - Flomax/alpha-rodríguez? No - Toric candidate: No - PanOptix candidate: No - Anesthesia: Topical with MAC - Contact lens use No - History of LASIK/PRK/RK No - Discussed initiate twice daily eyelid scrubs pending U/S biometry and surgery - Comanage with Dr Quintero; [facility] POD #1 Cataract Presurgical Documentation Cataract: Both [...] patient was offered a surgery/procedure at a [facility] facility. The surgeon/proceduralist and patient have [...] foveal contour with Macular edema Both eyes WEBSPHERE PORTAL ARCHITECT 402 um Right eye, 410 um Left [...] Has been seen by retina specialist in [place] ~2017 I have confirmed and edited as necessary the relevant ophthalmic history, ROS, and the exam findings as obtained by others. I have seen and examined this patient. I also have reviewed and agree with the assessment and plan as stated above and agree with all of its relevant components. Sunil Logan, OD August 31, 2021 2:50 PM documented in this encounterC[facility]05-[facility]-2022 Miscellaneous Notes* Telephone Encounter - Maria M Ruvalcaba - 06/22/2021 2:17 PM EDT Patient has been rescheduled * Telephone Encounter - Maria M Ruvalcaba - 06/22/2021 1:14 PM EDT LVM to let patient know appointment was cancelled today due to and emergency with Dr. Youssef. LVM at1:15PM 06/22/2021 documented in this encounterC[facility]04-18-2022 History of Present illness Narrative* Kinsey Hernandez - 06/05/2021 1:20 PM EDT Patient offered a medical weight analyst for sensitive exam. Pt declined documented in this encounterOSU Parkwood HospitalEvaluation note* Diagnosis Visit for screening mammogram Other screening mammogram documented in this encounter [facility]* Diagnosis Combined forms of age-related cataract of both eyes- Primary Other and combined forms of senile cataract Epiretinal membrane (ERM) of both eyes Vitreous degeneration, bilateral documented in this encounter [facility]* Diagnosis Combined forms of age-related cataract of both eyes- Primary Other and combined forms of senile cataract Combined forms of age-related cataract of both eyes Other and combined forms of senile cataract documented in this encounter [facility]* Diagnosis Epiretinal membrane (ERM) of both [...] SCREENING BILATERAL Mammography-Dima, Self-Requested [address] [place] [address] Referral IDStatusReasonStart DateExpiration DateVisits RequestedVisits [id number] Request/[id number]cnwt CommentsCataract EvaluationOUReasonOnset DateCommentsMedical Eevkedj1907/30/2023 ReasonCommentsEye Exam Care Teams (unrecognized sec tion and content) Team MemberRelationshipSpecialtyStart DateEnd Date Crystal Santamaria MD [address] [place] [address] PCP - General04/10/07Team MemberRelationshipSpecialtyStart DateEnd Date Crystal Santamaria MD [address] [address] PCP - General04/10/07Team MemberRelationshipSpecialtyStart DateEnd Date Unallocated, Noms MD Mercedes [address] [place], [place] [address] PCP - [facility]10/18/22Team MemberRelationshipSpecialtyStart DateEnd Date Unallocated, Noms ProviderMD Xiao [address]Z [facility] [address] PCP - [facility]10/18/22Te MemberRelationshipSpecialtyStart DateEnd Date Unallocated, [place] [address] PCP - [facility]10/18/22Te MemberRelationshipSpecialtyStart DateEnd Date Unallocated, Noms ProviderMD [address] [facility] [address] PCP - [facility]10/18/22 Source Comments (unrecognize d section and content) In the event this informatio n is protected by the Federal Confidentiality of Alcohol and Drug Abuse Patient Records regulations: The Federal rules restrict any use of the information to criminally investigate or prosecute any alcohol or drug abuse patient.[facility] HospitalIn the event this information is protected by the Federal Confidentiality of Alcohol and Drug Abuse Patient Records regulations: The Federal rules restrict any use of the information to criminally investigate or prosecute any alcohol or drug abuse patient.[facility] HospitalIn the event this information is protected by the Federal Confidentiality of Alcohol and Drug Abuse Patient Records regulations: The Federal rules restrict any use of the information to criminally investigate or prosecute any alcohol or drug abuse patient.[facility] INFORMATION SOURCE (unrecogn ized section and content) DATE CREATED AUTHOR 09/07/2021 [facility] DATE CREATED AUTHOR AUTHOR'S ORGANIZ ATION 05/10/2022 [facility] DATE CREATED AUTHOR AUTHOR'S ORGANIZ ATION 08/10/2022 [facility] DATE CREATED AUTHOR AUTHOR'S ORGANIZ ATION 10/18/2024 [facility] EPIC FOR RECORDS PERTAINING [...] BE BASED ON THE PRIMARY CLINICAL RECORDS. [employer] [facility]. provides no warranty or guarantee of the accuracy or completeness of information in this document.
[2025-01-12 13:43] LABS: Hemoglobin 13.8 g/dL (12.0-16.0)
[2025-01-12] MEDS: ALBUTEROL SULFATE 2.5 MG/3 ML VIAL NEB IH (15:46)
== END 2025-01-12 13:13 | disposition home or self-care (01) ==
PROVIDERS: PCP Nurse Practitioner Family; Visit Provider Nurse Practitioner Family
DX: J43.9 Emphysema, unspecified (principal); M81.0 Age-related osteoporosis without current pathological fracture; M19.90 Unspecified osteoarthritis, unspecified site
CPT/HCPCS: 36415; 77080; 85018; 94060; 94726; 94729